=== PATIENT | male | born 1985 ===

== ENCOUNTER 2018-08-13 21:43 | Inpatient (IN) | payer MEDICAID, OTHER ==
[2018-08-13] MEDS ORDERED: Iohexol 240 (50 ml) PO ONE (22:57)
[2018-08-13] MEDS ORDERED: Sodium Chloride 0.9% 1,000 ML IV STA (22:57)
--- NOTE | 2018-08-13 23:10 | ED PDOC ---
HPI: Abdomen Time Seen by Provider: 08/13/18 22:45 Chief Complaint (Nursing): Abdominal Pain Chief Complaint (Provider): abdominal pain History Per: Patient, Drum Puller (cherelle #[id number]) History/Exam Limitations: no limitations Onset/Duration Of Symptoms: Days (2) Current Symptoms Are (Timing): Still Present Location Of Pain/Discomfort: Diffuse Associated Symptoms: Nausea, Vomiting Additional Complaint(s): 32 y/o male presents for evaluation of diffuse abdominal pain x 2 days. Associated nausea/vomiting. Denies fever, chest pain, shortness of breath, palpitations, changes in bowel movements, urinary symptoms. Last BM 23:00 last night PMD: none Past Medical History Reviewed: Historical Data, Nursing Documentation, Vital Signs Vital Signs: Last Vital Signs Temp 98.2 F 08/13/18 22:15 Pulse 101 H 08/13/18 22:15 Resp 16 08/13/18 22:15 BP 178/97 H 08/13/18 22:15 Pulse Ox 100 08/13/18 22:15 - Medical History PMH: No Chronic Diseases - Surgical History Surgical History: No Surg Hx - Family History Family History: States: Unknown Family Hx - Immunization History Hx Tetanus Toxoid Vaccination: No Hx Influenza Vaccination: No Hx Pneumococcal Vaccination: No - Home Medications Home Medications: Ambulatory Orders Medication Instructions Recorded No Known Home Med 08/14/18 - Allergies Allergies/Adverse Reactions: Allergies Allergy/AdvReac Type Severity Reaction Status Date / Time No Known Allergies Allergy Verified 08/13/18 22:15 Review of Systems ROS Statement: Except As Marked, All Systems Reviewed And Found Negative Gastrointestinal: Positive for: Nausea, Vomiting, Abdominal Pain Physical Exam - Reviewed Nursing Documentation Reviewed: Yes Vital Signs Reviewed: Yes - Physical Exam Appears: Positive for: Well, Non-toxic, No Acute Distress Head Exam: Positive for: ATRAUMATIC, NORMAL INSPECTION, NORMOCEPHALIC Skin: Positive for: Normal Color Eye Exam: Positive for: Normal appearance ENT: Positive for: Normal ENT Inspection Cardiovascular/Chest: Positive for: Regular Rate, Rhythm Respiratory: Positive for: Normal Breath Sounds Gastrointestinal/Abdominal: Positive for: Bowel Sounds (hypoactive), Soft, Tenderness (diffuse) Back: Positive for: Normal Inspection Extremity: Positive for: Normal ROM Neurological/Psych: Positive for: Awake, Alert, Oriented (x3) - Laboratory Results Result Diagrams: 08/14/18 06:55 08/13/18 23:20 - ECG O2 Sat by Pulse Oximetry: 100 - Radiology X-Ray: Viewed By Me X-Ray Interpretation: No Acute Disease - Progress ED Course And Treament: -cbc -cmp -lipase -CT abd/pelvis -IV NS bolus -IV zofran -IV pepcid Ultrasound of the right upper quadrant. Indication: Upper abdominal pain and vomiting. Technique: Real-time ultrasound images were obtained. Findings: The liver measures 17.6 cm with diffuse increased echogenicity suggestive of hepatic steatosis. Limited evaluation secondary to gaseous bowel distention. Unremarkable gallbladder measuring 2.3 mm in its wall thickness. No evidence of cholelithiasis or acute cholecystitis. Nonvisualization of the pancreas. Unremarkable common bile duct measuring 4.1 mm. Unremarkable right kidney measuring 10.2x5.7x5.6 cm. Minimal amount of free fluid is noted in the [place] pouch/perinephric fat. Impression: No evidence of cholelithiasis or acute cholecystitis. Hepatomegaly with hepatic steatosis EXAM: CT Abdomen and Pelvis with IV contrast CLINICAL HISTORY: Abdominal pain vomiting TECHNIQUE: Axial computed tomography images of the abdomen and pelvis with oral and intravenous contrast. 318.39 mGy-cm CONTRAST: With; [id number] 90ML COMPARISON: None provided. FINDINGS: LUNG BASES: The lung bases appear clear. No pleural effusions are seen. LIVER: Unremarkable. GALLBLADDER AND BILE DUCTS: The gallbladder appears within normal limits. No radioopaque gallstones are seen. No biliary ductal dilatation is evident. PANCREAS: Unremarkable. SPLEEN: Unremarkable. ADRENAL GLANDS: Unremarkable. KIDNEYS, URETERS, AND BLADDER: The kidneys appear within normal limits. There is no hydronephrosis or hydroureter. No urinary calculi are seen. STOMACH AND BOWEL: Markedly dilated loops of small bowel, measuring up to 3.5 cm with evidence of fecalization and transition point at the level of proximal ileum compatible with high grade small bowel obstruction. APPENDIX: No evidence of acute appendicitis on CT examination. PERITONEUM: No free fluid. No free air. LYMPH NODES: No lymphadenopathy is evident. REPRODUCTIVE: Unremarkable as visualized. VASCULATURE: No evidence of abdominal aortic aneurysm. BONES: No aggressive appearing osseous lesion. No acute osseous pathology evident. IMPRESSION: Evidence of high grade small bowel obstruction. Case discussed with Dr. Solis, Surgeon on-call, who will consult in am Case discussed with Dr. George, surgical garment inspector on-call regarding consult Case discussed with Dr. Issa, hospitalist on-call, for admission Disposition - Clinical Impression Clinical Impression: Hyperglycemia, Small bowel obstruction - Disposition Disposition Time: 04:30 Condition: FAIR
[2018-08-13] MEDS ORDERED: Iohexol 240 (50 ml) ONE (23:37)
[2018-08-13 23:38] LABS: BASO % 0.3 % (0.0-2.0); HEMOGLOBIN 15.7 g/dL (12.0-18.0); LYMPH # 0.7 K/uL (1.0-4.3); LYMPH % 5.7 % (20.0-40.0); MEAN CELL VOLUME 93.2 fl (80.0-94.0); MEAN CORPUSCULAR HEMOGLOBIN 32.1 pg (27.0-31.0); MEAN CORPUSCULAR HGB CONC 34.4 g/dL (33.0-37.0); MEAN PLATELET VOLUME 9.2 fl (7.2-11.7); MONO # 1.1 K/uL (0.0-0.8); MONO % 9.8 % (0.0-10.0); NEUT # 9.7 K/uL (1.8-7.0); NEUT % 84.2 % (50.0-75.0); NRBC % 0.1 % (0.0-0.0); PLATELET COUNT 141 K/uL (130-400); RBC 4.89 Mil/uL (4.40-5.90); RED CELL DISTRIBUTION WIDTH 13.1 % (11.5-14.5); WHITE BLOOD COUNT 11.6 K/uL (4.8-10.8)
[2018-08-13 23:48] LABS: ALB/GLOB RATIO 1.3 (1.0-2.1); ALT/SGPT 112 U/L (21-72); AST/SGOT 84 U/L (17-59); BLOOD UREA NITROGEN 10 mg/dl (9-20); GFR NON-AFRICAN AMERICAN > 60; LIPASE 208 U/L (23-300)
[2018-08-14 00:28] LABS: PLATELET ESTIMATE NORMAL (NORMAL)
[2018-08-14 00:29] LABS: BANDS 2 % (0-2); BASOPHIL 1 % (0-2); EOSINOPHIL 1 % (0-7); LYMPHOCYTE 4 % (20-50); MONOCYTE 11 % (0-10); NEUTROPHIL 81 % (42-75); TOTAL CELLS COUNTED 100
[2018-08-14 01:08] LABS: URINE BILIRUBIN NEGATIVE (NEGATIVE); URINE BLOOD NEGATIVE (NEGATIVE); URINE CLARITY CLEAR (Clear); URINE COLOR YELLOW (YELLOW); URINE GLUCOSE (UA) >=500 mg/dL (NEGATIVE); URINE LEUKOCYTE ESTERASE NEG Leu/uL (Negative); URINE PROTEIN 100 mg/dL (NEGATIVE); URINE UROBILINOGEN 0.2-1.0 mg/dL (0.2-1.0)
[2018-08-14 01:48] LABS: VENOUS BLOOD GAS BASE EXCESS -3.9 mmol/L (0.0-2.0); VENOUS BLOOD GAS PCO2 36 mmHg (40-60); VENOUS BLOOD GAS PO2 57 mm/Hg (30-55); VENOUS BLOOD PH 7.37 (7.32-7.43)
[2018-08-14] MEDS ORDERED: Sodium Chloride 0.9% 50 ML IV ONE (01:52)
[2018-08-14] MEDS ORDERED: Iohexol 300 100 ML IJ ONE (01:52)
[2018-08-14] MEDS ORDERED: Morphine 4 MG/ML VIAL IVP ONE (04:06)
--- NOTE | 2018-08-14 05:08 | CP.PCM.HP ---
<Alan Curtis - Last Filed: 08/14/18 05:01> History of Present Illness - History of Present Illness History of Present Illness: 32 y/o male with no significant PMH presented to the ED c/o diffuse abdominal pain since Sunday. He describes pain as sharp and constant 11/06. Patient states associated nausea and several episodes of nbnb vomiting x2 days. Patient reports last BM last night about 11pm and also states decrease in gasses pattern. Otherwise he denies fever, chills, chest pain, shortness of breath, palpitations, changes in bowel movements, urinary symptoms. PMD: none provided. PMH: denies PSH: denies FMH: non contributory No home meds NKDA, no other allergies SH: etoh socially on weekends, denies tobacco or ilicit drugs use Present on Admission - Present on Admission Any Indicators Present on Admission: No Review of Systems - Review of Systems All systems: reviewed and no additional remarkable complaints except (HPI) Past Patient History - Past Social History Smoking Status: Never Smoked - GASTROINTESTINAL Hx Gastrointestinal Disorders: Yes Hx Gastritis: Yes - PSYCHIATRIC Hx Substance Use: No - SURGICAL HISTORY Hx Surgeries: No Meds Allergies/Adverse Reactions: Allergies Allergy/AdvReac Type Severity Reaction Status Date / Time No Known Allergies Allergy Verified 08/13/18 22:15 Physical Exam - Constitutional Appears: No Acute Distress - Head Exam Head Exam: NORMAL INSPECTION - Eye Exam Eye Exam: EOMI, PERRL - ENT Exam ENT Exam: Mucous Membranes Moist - Respiratory Exam Respiratory Exam: Clear to Auscultation Bilateral, NORMAL BREATHING PATTERN. absent: Rales, Wheezes - Cardiovascular Exam Cardiovascular Exam: REGULAR RHYTHM, +S1, +S2. absent: Tachycardia, Systolic Murmur - GI/Abdominal Exam GI & Abdominal Exam: Distended, Hypoactive Bowel Sounds, Tenderness (difusse over lower and upper quadrants). absent: Guarding - Extremities Exam Extremities exam: Negative for: calf tenderness, pedal edema - Neurological Exam Neurological exam: Alert, CN II-XII Intact, Oriented x3 - Skin Skin Exam: Dry, Normal Color, Warm Results - Vital Signs Recent Vital Signs: Last Vital Signs Temp 99.0 F 08/14/18 04:13 Pulse 91 H 08/14/18 04:13 Resp 18 08/14/18 04:13 BP 144/98 H 08/14/18 04:13 Pulse Ox 100 08/14/18 04:56 - Labs Result Diagrams: 08/13/18 23:20 08/13/18 23:20 Labs: Laboratory Results - last 24 hr 08/13/18 08/13/18 08/14/18 23:20 23:20 00:10 WBC 11.6 H RBC 4.89 Hgb 15.7 Hct 45.6 MCV 93.2 MCH 32.1 H MCHC 34.4 RDW 13.1 Plt Count 141 MPV 9.2 Neut % (Auto) 84.2 H Lymph % (Auto) 5.7 L [place] % (Auto) 9.8 Eos % (Auto) 0.0 Baso % (Auto) 0.3 Neut # (Auto) 9.7 H Lymph # (Auto) 0.7 L [place] # (Auto) 1.1 H Eos # (Auto) 0.0 Baso # (Auto) 0.0 Neutrophils % (Manual) 81 H Band Neutrophils % 2 Lymphocytes % (Manual) 4 L Monocytes % (Manual) 11 H Eosinophils % (Manual) 1 Basophils % (Manual) 1 Platelet Estimate Normal RBC Morphology Normal pO2 VBG pH VBG pCO2 VBG HCO3 VBG Total CO2 VBG O2 Sat (Calc) VBG Base Excess VBG Potassium Glucose Lactate FiO2 Sodium 134 Potassium 4.1 Chloride 94 L Carbon Dioxide 23 Anion Gap 21 H BUN 10 Creatinine 0.5 L Est GFR ( Amer) > 60 Est GFR (Non-Af Amer) > 60 Random Glucose 274 H Calcium 10.0 Total Bilirubin 2.2 H AST 84 H ALT 112 H Alkaline Phosphatase 162 H Total Protein 8.9 H Albumin 5.0 Globulin 3.9 Albumin/Globulin Ratio 1.3 Lipase 208 Venous Blood Potassium Urine Color Yellow Urine Clarity Clear Urine pH 6.0 Ur Specific [place] 1.039 H Urine Protein 100 Urine Glucose (UA) >=500 Urine Ketones 80 Urine Blood Negative Urine Nitrate Negative Urine Bilirubin Negative Urine Urobilinogen 0.2-1.0 Ur Leukocyte Esterase Neg Urine RBC (Auto) 1 Urine Microscopic WBC < 1 08/14/18 01:45 WBC RBC Hgb Hct MCV MCH MCHC RDW Plt Count MPV Neut % (Auto) Lymph % (Auto) [place] % (Auto) Eos % (Auto) Baso % (Auto) Neut # (Auto) Lymph # (Auto) [place] # (Auto) Eos # (Auto) Baso # (Auto) Neutrophils % (Manual) Band Neutrophils % Lymphocytes % (Manual) Monocytes % (Manual) Eosinophils % (Manual) Basophils % (Manual) Platelet Estimate RBC Morphology pO2 57 H VBG pH 7.37 VBG pCO2 36 L VBG HCO3 21.6 VBG Total CO2 21.9 L VBG O2 Sat (Calc) 93.0 H VBG Base Excess -3.9 L VBG Potassium 4.1 Glucose 260 H Lactate 1.2 FiO2 21.0 Sodium 131.0 L Potassium Chloride 95.0 L Carbon Dioxide Anion Gap BUN Creatinine Est GFR ( Amer) Est GFR (Non-Af Amer) Random Glucose Calcium Total Bilirubin AST ALT Alkaline Phosphatase Total Protein Albumin Globulin Albumin/Globulin Ratio Lipase Venous Blood Potassium 4.1 Urine Color Urine Clarity Urine pH Ur Specific [place] Urine Protein Urine Glucose (UA) Urine Ketones Urine Blood Urine Nitrate Urine Bilirubin Urine Urobilinogen Ur Leukocyte Esterase Urine RBC (Auto) Urine Microscopic WBC Assessment & Plan - Assessment and Plan (Free Text) Assessment: 32 y/o male with no significant PMH admitted for evaluation and management of SBO. Plan: Small bowel obstruction - Abd CT: Evidence of high grade small bowel obstruction. - admit to med/surg - mild leukocytocis 11.6, afebrile - NPO - IVF - pain management - General Surgery consulted, recs appreciated - labs in am Hyperglycemia - family h/o DM - asymptomatic Hepatic steatosis Transaminitis Hyperbilirubinemia - RUQ US: No evidence of cholelithiasis or acute cholecystitis. Hepatomegaly with hepatic steatosis - AST/ALT: 84/112 - TB: 2.2 - f/u labs DVT ppx - SCD for now, pending Surgery eval. Case seen and examined with Dr Issa. <Angel Issa - Last Filed: 08/14/18 05:57> Results - Vital Signs Recent Vital Signs: Last Vital Signs Temp 99.0 F 08/14/18 04:13 Pulse 89 08/14/18 05:41 Resp 18 08/14/18 05:41 BP 147/86 08/14/18 05:41 Pulse Ox 99 08/14/18 05:41 - Labs Result Diagrams: 08/13/18 23:20 08/13/18 23:20 Labs: Laboratory Results - last 24 hr 08/13/18 08/13/18 08/14/18 23:20 23:20 00:10 WBC 11.6 H RBC 4.89 Hgb 15.7 Hct 45.6 MCV 93.2 MCH 32.1 H MCHC 34.4 RDW 13.1 Plt Count 141 MPV 9.2 Neut % (Auto) 84.2 H Lymph % (Auto) 5.7 L [place] % (Auto) 9.8 Eos % (Auto) 0.0 Baso % (Auto) 0.3 Neut # (Auto) 9.7 H Lymph # (Auto) 0.7 L [place] # (Auto) 1.1 H Eos # (Auto) 0.0 Baso # (Auto) 0.0 Neutrophils % (Manual) 81 H Band Neutrophils % 2 Lymphocytes % (Manual) 4 L Monocytes % (Manual) 11 H Eosinophils % (Manual) 1 Basophils % (Manual) 1 Platelet Estimate Normal RBC Morphology Normal PT INR APTT pO2 VBG pH VBG pCO2 VBG HCO3 VBG Total CO2 VBG O2 Sat (Calc) VBG Base Excess VBG Potassium Glucose Lactate FiO2 Sodium 134 Potassium 4.1 Chloride 94 L Carbon Dioxide 23 Anion Gap 21 H BUN 10 Creatinine 0.5 L Est GFR ( Amer) > 60 Est GFR (Non-Af Amer) > 60 Random Glucose 274 H Calcium 10.0 Total Bilirubin 2.2 H AST 84 H ALT 112 H Alkaline Phosphatase 162 H Total Protein 8.9 H Albumin 5.0 Globulin 3.9 Albumin/Globulin Ratio 1.3 Lipase 208 Venous Blood Potassium Urine Color Yellow Urine Clarity Clear Urine pH 6.0 Ur Specific [place] 1.039 H Urine Protein 100 Urine Glucose (UA) >=500 Urine Ketones 80 Urine Blood Negative Urine Nitrate Negative Urine Bilirubin Negative Urine Urobilinogen 0.2-1.0 Ur Leukocyte Esterase Neg Urine RBC (Auto) 1 Urine Microscopic WBC < 1 08/14/18 08/14/18 01:45 04:50 WBC RBC Hgb Hct MCV MCH MCHC RDW Plt Count MPV Neut % (Auto) Lymph % (Auto) [place] % (Auto) Eos % (Auto) Baso % (Auto) Neut # (Auto) Lymph # (Auto) [place] # (Auto) Eos # (Auto) Baso # (Auto) Neutrophils % (Manual) Band Neutrophils % Lymphocytes % (Manual) Monocytes % (Manual) Eosinophils % (Manual) Basophils % (Manual) Platelet Estimate RBC Morphology PT 12.1 INR 1.1 APTT 34.1 pO2 57 H VBG pH 7.37 VBG pCO2 36 L VBG HCO3 21.6 VBG Total CO2 21.9 L VBG O2 Sat (Calc) 93.0 H VBG Base Excess -3.9 L VBG Potassium 4.1 Glucose 260 H Lactate 1.2 FiO2 21.0 Sodium 131.0 L Potassium Chloride 95.0 L Carbon Dioxide Anion Gap BUN Creatinine Est GFR ( Amer) Est GFR (Non-Af Amer) Random Glucose Calcium Total Bilirubin AST ALT Alkaline Phosphatase Total Protein Albumin Globulin Albumin/Globulin Ratio Lipase Venous Blood Potassium 4.1 Urine Color Urine Clarity Urine pH Ur Specific [place] Urine Protein Urine Glucose (UA) Urine Ketones Urine Blood Urine Nitrate Urine Bilirubin Urine Urobilinogen Ur Leukocyte Esterase Urine RBC (Auto) Urine Microscopic WBC Attending/Attestation - Attestation I have personally seen and examined this patient.: Yes I have fully participated in the care of the patient.: Yes I have reviewed all pertinent clinical information: Yes Notes (Text): 08/14/18 05:50 I saw, examined and discussed this patient with Dr Curtis. I agree withthe assessment and plan outlined. This is a 32 years old male with no significant past medical hx who comes with 2 days of generalized abdominal pain with mild rebound tenderness, and vomits. CT abdomen / Pelvis showed SBO. We will consult with Surgery NPO Pain management HbA1c for Diabetes Mellitus Follow Liver enzymes for Transaminitis Angel Issa MD 08/14/18 05:56
[2018-08-14] MEDS ORDERED: Morphine 4 MG/ML VIAL ONE (05:13)
[2018-08-14] MEDS: Lactated Ringer's 1,000 ML IV SCH ×3 (05:18→23:47)
[2018-08-14 05:23] LABS: INR 1.1; PROTHROMBIN TIME 12.1 Seconds (9.8-13.1)
[2018-08-14 05:26] LABS: PARTIAL THROMBOPLASTIN TIME 34.1 Seconds (25.6-37.1)
--- NOTE | 2018-08-14 06:22 | CP.PCM.CON ---
<Luma George - Last Filed: 08/14/18 06:19> History of Present Illness - History of Present Illness History of Present Illness: General Surgery - Dr Solis 32 yo M w no PMH or PSH who presents to ED with diffuse abdominal pain, nausea and vomiting x 3 days. Pt states the symptoms began on Sunday. He describes the pain as diffusely throughout the abdomen and slightly towards the umbilicus, non-radiating, 7/10 and gradually worsening since Sunday. HE had associated nausea and has vomitted several times daily since this began. He states his last BM was yesterday night and was normal but he denies any flatus since this began. He denies any Fever/Chills/Diarrhea/Dysuria/Hematuria. PMH: denies PSH: denies No meds NKDA Social: ETOH socially on weekends, No smoking, No drugs Review of Systems - Review of Systems All systems: reviewed and no additional remarkable complaints except (as per HPI) Past Patient History - Past Social History Smoking Status: Never Smoked - GASTROINTESTINAL Hx Gastrointestinal Disorders: Yes Hx Gastritis: Yes - PSYCHIATRIC Hx Substance Use: No - SURGICAL HISTORY Hx Surgeries: No Meds Allergies/Adverse Reactions: Allergies Allergy/AdvReac Type Severity Reaction Status Date / Time No Known Allergies Allergy Verified 08/13/18 22:15 - Medications Medications: Current Medications Lactated Ringer's (Lactated Ringer's) 1,000 mls @ 125 mls/hr IV .Q8H DONNA Last Admin: 08/14/18 05:18 Dose: 125 mls/hr Morphine Sulfate (Morphine) 2 mg IVP Q4 PRN PRN Reason: Pain, severe (8-10) Ondansetron HCl (Zofran Inj) 4 mg IVP Q4 PRN PRN Reason: Nausea/Vomiting Physical Exam - Constitutional Appears: No Acute Distress - Head Exam Head Exam: ATRAUMATIC, NORMAL INSPECTION, NORMOCEPHALIC - Eye Exam Eye Exam: Normal appearance - Respiratory Exam Respiratory Exam: NORMAL BREATHING PATTERN. absent: Respiratory Distress - Cardiovascular Exam Cardiovascular Exam: REGULAR RHYTHM - GI/Abdominal Exam GI & Abdominal Exam: Distended, Guarding, Rebound, Soft, Tenderness - Neurological Exam Neurological exam: Alert, Oriented x3 - Psychiatric Exam Psychiatric exam: Normal Affect, Normal Mood - Skin Skin Exam: Dry, Intact Results - Vital Signs Recent Vital Signs: Last Vital Signs Temp 98.5 F 08/14/18 05:50 Pulse 89 08/14/18 05:41 Resp 18 08/14/18 05:41 BP 147/86 08/14/18 05:41 Pulse Ox 99 08/14/18 05:41 - Labs Result Diagrams: 08/13/18 23:20 08/13/18 23:20 Labs: Laboratory Results - last 24 hr 08/13/18 08/13/18 08/14/18 23:20 23:20 00:10 WBC 11.6 H RBC 4.89 Hgb 15.7 Hct 45.6 MCV 93.2 MCH 32.1 H MCHC 34.4 RDW 13.1 Plt Count 141 MPV 9.2 Neut % (Auto) 84.2 H Lymph % (Auto) 5.7 L [place] % (Auto) 9.8 Eos % (Auto) 0.0 Baso % (Auto) 0.3 Neut # (Auto) 9.7 H Lymph # (Auto) 0.7 L [place] # (Auto) 1.1 H Eos # (Auto) 0.0 Baso # (Auto) 0.0 Neutrophils % (Manual) 81 H Band Neutrophils % 2 Lymphocytes % (Manual) 4 L Monocytes % (Manual) 11 H Eosinophils % (Manual) 1 Basophils % (Manual) 1 Platelet Estimate Normal RBC Morphology Normal PT INR APTT pO2 VBG pH VBG pCO2 VBG HCO3 VBG Total CO2 VBG O2 Sat (Calc) VBG Base Excess VBG Potassium Glucose Lactate FiO2 Sodium 134 Potassium 4.1 Chloride 94 L Carbon Dioxide 23 Anion Gap 21 H BUN 10 Creatinine 0.5 L Est GFR ( Amer) > 60 Est GFR (Non-Af Amer) > 60 Random Glucose 274 H Calcium 10.0 Total Bilirubin 2.2 H AST 84 H ALT 112 H Alkaline Phosphatase 162 H Total Protein 8.9 H Albumin 5.0 Globulin 3.9 Albumin/Globulin Ratio 1.3 Lipase 208 Venous Blood Potassium Urine Color Yellow Urine Clarity Clear Urine pH 6.0 Ur Specific [place] 1.039 H Urine Protein 100 Urine Glucose (UA) >=500 Urine Ketones 80 Urine Blood Negative Urine Nitrate Negative Urine Bilirubin Negative Urine Urobilinogen 0.2-1.0 Ur Leukocyte Esterase Neg Urine RBC (Auto) 1 Urine Microscopic WBC < 1 08/14/18 08/14/18 01:45 04:50 WBC RBC Hgb Hct MCV MCH MCHC RDW Plt Count MPV Neut % (Auto) Lymph % (Auto) [place] % (Auto) Eos % (Auto) Baso % (Auto) Neut # (Auto) Lymph # (Auto) [place] # (Auto) Eos # (Auto) Baso # (Auto) Neutrophils % (Manual) Band Neutrophils % Lymphocytes % (Manual) Monocytes % (Manual) Eosinophils % (Manual) Basophils % (Manual) Platelet Estimate RBC Morphology PT 12.1 INR 1.1 APTT 34.1 pO2 57 H VBG pH 7.37 VBG pCO2 36 L VBG HCO3 21.6 VBG Total CO2 21.9 L VBG O2 Sat (Calc) 93.0 H VBG Base Excess -3.9 L VBG Potassium 4.1 Glucose 260 H Lactate 1.2 FiO2 21.0 Sodium 131.0 L Potassium Chloride 95.0 L Carbon Dioxide Anion Gap BUN Creatinine Est GFR ( Amer) Est GFR (Non-Af Amer) Random Glucose Calcium Total Bilirubin AST ALT Alkaline Phosphatase Total Protein Albumin Globulin Albumin/Globulin Ratio Lipase Venous Blood Potassium 4.1 Urine Color Urine Clarity Urine pH Ur Specific [place] Urine Protein Urine Glucose (UA) Urine Ketones Urine Blood Urine Nitrate Urine Bilirubin Urine Urobilinogen Ur Leukocyte Esterase Urine RBC (Auto) Urine Microscopic WBC Assessment & Plan - Assessment and Plan (Free Text) Assessment: 32M w/ no PMH/PSH presenting with high-grade SBO -NPO -IVF resuscitation -Anti-emetics and pain control prn -NGT attempted, will re-attempt if vomitting continues -Further reccomendations as per Dr. Solis DW Dr Solis <Rachid Rogel - Last Filed: 08/14/18 10:46> History of Present Illness - History of Present Illness History of Present Illness: Patient was seen and examined at the bedside. Agree with resident's note above. Denies any flatus or bowel movements. Reports some mild abdominal pain. Meds - Medications Medications: Current Medications Lactated Ringer's (Lactated Ringer's) 1,000 mls @ 125 mls/hr IV .Q8H [facility] Last Admin: 08/14/18 05:18 Dose: 125 mls/hr Morphine Sulfate (Morphine) 2 mg IVP Q4 PRN PRN Reason: Pain, severe (8-10) Ondansetron HCl (Zofran Inj) 4 mg IVP Q4 PRN PRN Reason: Nausea/Vomiting Physical Exam - GI/Abdominal Exam Additional comments: soft, mildly tender to palpation, ND, BS+, no rebound, no guarding Results - Vital Signs Recent Vital Signs: Last Vital Signs Temp 97.8 F 08/14/18 08:25 Pulse 93 H 08/14/18 08:25 Resp 20 08/14/18 08:25 BP 168/97 H 08/14/18 08:25 Pulse Ox 96 08/14/18 08:25 - Labs Result Diagrams: 08/14/18 06:55 08/13/18 23:20 Labs: Laboratory Results - last 24 hr 08/13/18 08/13/18 08/14/18 23:20 23:20 00:10 WBC 11.6 H RBC 4.89 Hgb 15.7 Hct 45.6 MCV 93.2 MCH 32.1 H MCHC 34.4 RDW 13.1 Plt Count 141 MPV 9.2 Neut % (Auto) 84.2 H Lymph % (Auto) 5.7 L [place] % (Auto) 9.8 Eos % (Auto) 0.0 Baso % (Auto) 0.3 Neut # (Auto) 9.7 H Lymph # (Auto) 0.7 L [place] # (Auto) 1.1 H Eos # (Auto) 0.0 Baso # (Auto) 0.0 Neutrophils % (Manual) 81 H Band Neutrophils % 2 Lymphocytes % (Manual) 4 L Monocytes % (Manual) 11 H Eosinophils % (Manual) 1 Basophils % (Manual) 1 Platelet Estimate Normal RBC Morphology Normal PT INR APTT pO2 VBG pH VBG pCO2 VBG HCO3 VBG Total CO2 VBG O2 Sat (Calc) VBG Base Excess VBG Potassium Glucose Lactate FiO2 Sodium 134 Potassium 4.1 Chloride 94 L Carbon Dioxide 23 Anion Gap 21 H BUN 10 Creatinine 0.5 L Est GFR ( Amer) > 60 Est GFR (Non-Af Amer) > 60 Random Glucose 274 H Calcium 10.0 Total Bilirubin 2.2 H AST 84 H ALT 112 H Alkaline Phosphatase 162 H Total Protein 8.9 H Albumin 5.0 Globulin 3.9 Albumin/Globulin Ratio 1.3 Lipase 208 Venous Blood Potassium Urine Color Yellow Urine Clarity Clear Urine pH 6.0 Ur Specific [place] 1.039 H Urine Protein 100 Urine Glucose (UA) >=500 Urine Ketones 80 Urine Blood Negative Urine Nitrate Negative Urine Bilirubin Negative Urine Urobilinogen 0.2-1.0 Ur Leukocyte Esterase Neg Urine RBC (Auto) 1 Urine Microscopic WBC < 1 08/14/18 08/14/18 08/14/18 01:45 04:50 06:55 WBC 9.5 RBC 4.68 Hgb 15.2 Hct 44.3 MCV 94.7 H MCH 32.4 H MCHC 34.3 RDW 13.1 Plt Count 140 MPV 9.2 Neut % (Auto) 79.2 H Lymph % (Auto) 9.3 L [place] % (Auto) 10.9 H Eos % (Auto) 0.1 Baso % (Auto) 0.5 Neut # (Auto) 7.6 H Lymph # (Auto) 0.9 L [place] # (Auto) 1.0 H Eos # (Auto) 0.0 Baso # (Auto) 0.0 Neutrophils % (Manual) Band Neutrophils % Lymphocytes % (Manual) Monocytes % (Manual) Eosinophils % (Manual) Basophils % (Manual) Platelet Estimate RBC Morphology PT 12.1 INR 1.1 APTT 34.1 pO2 57 H VBG pH 7.37 VBG pCO2 36 L VBG HCO3 21.6 VBG Total CO2 21.9 L VBG O2 Sat (Calc) 93.0 H VBG Base Excess -3.9 L VBG Potassium 4.1 Glucose 260 H Lactate 1.2 FiO2 21.0 Sodium 131.0 L Potassium Chloride 95.0 L Carbon Dioxide Anion Gap BUN Creatinine Est GFR ( Amer) Est GFR (Non-Af Amer) Random Glucose Calcium Total Bilirubin AST ALT Alkaline Phosphatase Total Protein Albumin Globulin Albumin/Globulin Ratio Lipase Venous Blood Potassium 4.1 Urine Color Urine Clarity Urine pH Ur Specific [place] Urine Protein Urine Glucose (UA) Urine Ketones Urine Blood Urine Nitrate Urine Bilirubin Urine Urobilinogen Ur Leukocyte Esterase Urine RBC (Auto) Urine Microscopic WBC - Imaging and Cardiology CT scan - abdomen Status: Image reviewed by me, Report reviewed by me Assessment & Plan - Assessment and Plan (Free Text) Plan: - NPO - IV fluids - Pain control - To OR for Laparoscopy, possible Exploratory Laparotomy
[2018-08-14 07:06] LABS: BASO % 0.5 % (0.0-2.0); EOS % 0.1 % (0.0-4.0); HEMOGLOBIN 15.2 g/dL (12.0-18.0); LYMPH # 0.9 K/uL (1.0-4.3); LYMPH % 9.3 % (20.0-40.0); MEAN CELL VOLUME 94.7 fl (80.0-94.0); MEAN CORPUSCULAR HEMOGLOBIN 32.4 pg (27.0-31.0); MEAN CORPUSCULAR HGB CONC 34.3 g/dL (33.0-37.0); MEAN PLATELET VOLUME 9.2 fl (7.2-11.7); MONO % 10.9 % (0.0-10.0); NEUT # 7.6 K/uL (1.8-7.0); NEUT % 79.2 % (50.0-75.0); RBC 4.68 Mil/uL (4.40-5.90); RED CELL DISTRIBUTION WIDTH 13.1 % (11.5-14.5); WHITE BLOOD COUNT 9.5 K/uL (4.8-10.8)
--- NOTE | 2018-08-14 07:29 | CP.PCM.PN ---
Objective - Vital Signs/Intake and Output Vital Signs (last 24 hours): Temp Pulse Resp BP Pulse Ox 97.8 F 89 20 159/91 H 95 08/14/18 06:44 08/14/18 06:44 08/14/18 06:44 08/14/18 06:44 08/14/18 06:44 - Medications Medications: Current Medications Lactated Ringer's (Lactated Ringer's) 1,000 mls @ 125 mls/hr IV .Q8H DONNA Last Admin: 08/14/18 05:18 Dose: 125 mls/hr Morphine Sulfate (Morphine) 2 mg IVP Q4 PRN PRN Reason: Pain, severe (8-10) Ondansetron HCl (Zofran Inj) 4 mg IVP Q4 PRN PRN Reason: Nausea/Vomiting - Labs Labs: 08/14/18 06:55 08/13/18 23:20 PT 12.1 Seconds (9.8-13.1) 08/14/18 04:50 INR 1.1 08/14/18 04:50 APTT 34.1 Seconds (25.6-37.1) 08/14/18 04:50
[2018-08-14] MEDS ORDERED: Chlorhexidine Gluconate 1 APPL/PKT TP ONE (07:57)
--- NOTE | 2018-08-14 08:10 | RAD ---
Date of service: 08/14/2018 PROCEDURE: CHEST RADIOGRAPH, 1 VIEW HISTORY: admit COMPARISON: None available. FINDINGS: LUNGS: Consolidation. Probable tiny granulomas throughout both lungs. PLEURA: No pneumothorax or pleural fluid seen. CARDIOVASCULAR: No aortic atherosclerotic calcification present. Normal. OSSEOUS STRUCTURES: No significant abnormalities. VISUALIZED UPPER ABDOMEN: Multiple small bowel loops borderline distended multiple air-fluid [id number] obstruction is 1 consideration. Please note the subsequent CT abdomen and pelvic report. OTHER FINDINGS: None IMPRESSION: Multiple small bowel air-fluid level loops epigastric area with the borderline prominent calibers-a small bowel obstruction is a consideration. Please note the subsequent preliminary CT abdomen and pelvic report.
--- NOTE | 2018-08-14 10:29 | US ---
Date of service: 08/14/2018 HISTORY: abd pain, vomiting COMPARISON: None. TECHNIQUE: Sonographic evaluation of the right upper quadrant of the abdomen. FINDINGS: LIVER: Measures 17.6 cm in length. Mild diffuse increased echogenicity of the liver parenchyma. No mass. No intrahepatic bile duct dilatation. GALLBLADDER: Gallbladder slightly small but otherwise unremarkable. No gallstones seen. No gallbladder wall thickening or pericholecystic fluid seen. No positive ultrasound Neumann sign. COMMON BILE DUCT: Measures 4.1 mm. No stones. No dilatation. PANCREAS: Unremarkable as visualized. No mass. No ductal dilatation. RIGHT KIDNEY: Measures 12.2 x 5.7 x 5.6 cm in length. Normal echogenicity. No calculus, mass, or hydronephrosis. Trace amount of peritoneal fluid is seen in Morison's pouch. And bordering the right hepatic lobe. AORTA: No aneurysmal dilatation. IVC: Unremarkable. OTHER FINDINGS: None . IMPRESSION: No gallbladder or pancreatic pathology noted. Hepatomegaly and hepatic steatosis. Trace amount of ascitic fluid in Resendiz's pouch and bordering the liver. Concordant results (preliminary interpretation) provided by [employer].
[2018-08-14] MEDS ORDERED: Influenza Vaccine 60 mcg/0.5 mL SYR (4YR UP) IM ONE (10:30)
--- NOTE | 2018-08-14 10:40 | CT ---
PROCEDURE: CT Abdomen and Pelvis with oral and IV contrast. HISTORY: abd pain, vomiting COMPARISON: Right upper quadrant ultrasound performed 08/14/18 TECHNIQUE: Contiguous axial images of the abdomen and pelvis. Oral and IV contrast was administered. Coronal and Sagittal reformats generated and reviewed. Contrast dose: 90 mL Omnipaque 300 IV Radiation dose: Total exam DLP = 318.39 mGy-cm. This CT exam was performed using one or more of the following dose reduction techniques: Automated exposure control, adjustment of the mA and/or kV according to patient size, and/or use of iterative reconstruction technique. FINDINGS: LOWER THORAX: Bibasilar atelectasis. No visible pleural effusion or pneumothorax. LIVER: Trace perihepatic fluid. Otherwise unremarkable. GALLBLADDER AND BILE DUCTS: Unremarkable. PANCREAS: Unremarkable. SPLEEN: Unremarkable. ADRENALS: Unremarkable. KIDNEYS AND URETERS: The kidneys enhance symmetrically. No hydronephrosis or obstructing renal calculus. BLADDER: The urinary bladder appears unremarkable. REPRODUCTIVE: Unremarkable. APPENDIX: The appendix appears within normal limits of caliber. No secondary signs of acute appendicitis. BOWEL: The stomach is nondistended. Dilated stairstep appearance of small bowel loops measuring up to 3.4 cm in diameter with fecalization of luminal contents consistent with obstruction. Evidence of decompressed distal ileum with exact point of transition uncertain. Diverticulosis. PERITONEUM: No definite free air. LYMPH NODES: No bulky lymphadenopathy identified. VASCULATURE: No aortic aneurysm. No atherosclerotic calcification or mural plaque present. BONES: No acute osseous abnormality is detected. OTHER FINDINGS: None. IMPRESSION: Dilated small bowel loops with evidence of fecalization and decompressed distal ileum; findings appear consistent with small bowel obstruction. Diverticulosis. Trace perihepatic fluid. Preliminary impression was provided by [employer]
[2018-08-14] MEDS ORDERED: Influenza Vaccine (5 YR UP)/PF 60 MCG/0.5 ML SYR IM ONE (11:00)
[2018-08-14] MEDS ORDERED: Rocuronium 10 mg/ml (5 ml) ONE (11:43)
[2018-08-14] MEDS ORDERED: Propofol 10 mg/ml Inj (20 ML) ONE (11:43)
[2018-08-14] MEDS ORDERED: Midazolam 2 MG/2 ML VIAL ONE (11:43)
[2018-08-14] MEDS ORDERED: Bupivacaine 0.5% Inj(30mL) ONE (11:44)
[2018-08-14] MEDS ORDERED: Succinylcholine Chloride 20 mg/ml Syr (5 ml) IV ONE (11:48)
[2018-08-14] MEDS ORDERED: Bupivacaine HCl 0.5% PF (30 ml) Inj ONE (13:20)
[2018-08-14] MEDS ORDERED: Bupivacaine 0.25%-Epinephrine 1:200,000 (30 ml) Inj ONE (13:22)
[2018-08-14] MEDS ORDERED: Neostigmine 1:1000 (1 mg/ml) Inj ONE (13:28)
[2018-08-14] MEDS ORDERED: Naloxone 0.4 mg/ml Inj (Adult) ONE (14:09)
[2018-08-14] MEDS ORDERED: Lactated Ringer's 1,000 ML IV ONE ×2 (14:10→14:43)
[2018-08-14] MEDS ORDERED: Lactated Ringer's 1,000 ML IV SCH (14:15)
--- NOTE | 2018-08-14 14:16 | PCM.ANESB5 ---
Transverse Abdominis Block - Transverse Abdominis Plane Date of Procedure: 08/14/18 Anesthesiologist: Isaias Lou Pre-Procedure Diagnosis: Bowel obstruction Post-Procedure Diagnosis: Dilated bowel Procedure Performed: Transverse Abdominis Plane Nerve Block Left, Transverse Abdominis Plane Nerve Block Right - Procedure Transverse Abdominis Plane Nerve Block: The procedure was explained to the patient that it is for post-operative pain management and would be performed after surgery. Consent was obtained prior to surgery after a thorough discussion with the patient regarding the benefits and possible complications of transverse abdominis plane block. After the surgery had concluded and before the patient emerged from general anesthesia, time-out was held with the circulating nurse to re-confirm the appropriate block. With the patient in supine position, the ultrasound probe was placed transverse to the abdominal wall at the mid-axillary line above the iliac crest of the appropriate side. The skin, subcutaneous tissue, fat, external oblique muscle, internal oblique muscle, and the transverse abdominis muscle were identified. The general area of the block site was then prepped with Chloraprep three times. At this point, a # 21-gauge Stimuplex 4-inch needle was inserted posterior to and in plane with the ultrasound probe and directed anteriorly. Needle was adva nced under direct ultrasound visualization until it reached the plane between the internal oblique and transverse abdominis muscles. After appropriate placement, 2mL of local anesthetic solution was injected. When the transverse abdominis plane was observed expanding in an ellipsoid way, the rest of the solution was slowly injected. A total of _30__ mL of _0.25__ % bupivacaine with 1:[id number] epinephrine was used for this block. The needle was then removed and sterile dressing was applied. Similarly, the same procedure was performed on the other side using the same medications. The patient had stable vital signs throughout and had no untoward complications after emergence from general anesthesia in the recovery room.
--- NOTE | 2018-08-14 14:23 | PCM.SURG1 ---
Surgeon's Initial Post Op Note - Surgeon's Notes Surgeon: Dr. Rogel, Dr. Somers Manager Sql: Dr. Pittman Type of Anesthesia: General Endo Pre-Operative Diagnosis: small bowel obtruction Operative Findings: see operative report Post-Operative Diagnosis: small bowel obstruction Operation Performed: diagnostic laparoscopy, exploratory laparotomy, repair of serosal injury, repair of enterotomy Specimen/Specimens Removed: none Estimated Blood Loss: EBL {In ML}: 25 Blood Products Given: N/A Drains Used: No Drains Post-Op Condition: Good Date of Surgery/Procedure: 08/14/18 Time of Surgery/Procedure: 13:00
[2018-08-14] MEDS: HYDROmorphone 0.5 mg/0.5 ml ISec IVP PRN ×4 (15:10→15:25)
[2018-08-14] MEDS ORDERED: Metoprolol 1 mg/ml Inj IVP ONE ×2 (16:35→16:45)
[2018-08-14] MEDS ORDERED: ceFAZolin 2 GM in Sodium Chloride 0.9% 100 ML IVPB SCH (17:00)
[2018-08-14] MEDS ORDERED: Sodium Chloride 0.9% 500 ML IV ONE (17:07)
[2018-08-14] MEDS: Insulin Lispro (humaLOG) 100 Units/ml Inj SC SCH ×2 (17:44→22:45)
[2018-08-14] MEDS ORDERED: HYDROmorphone 0.5 mg/0.5 ml ISec IVP PRN (20:19)
[2018-08-14] MEDS: ceFAZolin 2 GM in Sodium Chloride 0.9% 100 ML IVPB SCH (20:27)
[2018-08-15] MEDS: ceFAZolin 2 GM in Sodium Chloride 0.9% 100 ML IVPB SCH (04:08)
--- NOTE | 2018-08-15 04:11 | OP ---
PROCEDURE DATE: 08/14/2018 PREOPERATIVE DIAGNOSIS: High-grade small bowel obstruction. POSTOPERATIVE DIAGNOSIS: Small bowel obstruction. PROCEDURE: Diagnostic laparotomy converted to exploratory laparotomy, repair of enterotomy and serosal tear. SURGEON: Candido Somers MD. AUTOMATIC WINDER OPERATOR: Rachid Rogel MD; Resident, Belkis Pittman. TYPE OF ANESTHESIA: General. FINDINGS: The patient had hyperemic distended small bowel from distal jejunum to distal terminal ileum. The patient had a collapsed distal ileum, small bowel was hyperemic, no identifiable adhesive band. The patient had fecalized small bowel. Small bowel ran from the ligament of Treitz to the terminal ileum and no gross abnormality and no adhesive bands found. ESTIMATED BLOOD LOSS: 25 mL. COMPLICATIONS: None. SPECIMEN: None. CONDITION: Stable. BRIEF HISTORY OF PATIENT: This is a 32-year-old male with no previous surgical history, presented to the emergency room with 3-day history of worsening diffuse abdominal pain. The patient's last bowel movement was about two days ago and no further flatus for about one day. The patient had a CT scan, which was read as possible high-grade obstruction. The patient had distended small bowel with collapsed loops at the distal ileum. On exam, the patient was tender to the right upper quadrant with some guarding. Given the patient's clinical findings, an extensive discussion was had with the patient regarding the need for a diagnostic laparoscopy given his no previous surgical history. The patient was informed of the possible need for an exploratory laparotomy possible small bowel resection. The patient was also informed that diagnostic laparoscopy may not show any significant findings. The patient agreed and the patient was also explained the risks and benefits of the procedure not limited to bleeding, infection. The patient agreed and surgical consent was obtained. DESCRIPTION OF PROCEDURE: On the date of procedure, the patient was brought to the operating room where he was placed in supine position. Bilateral sequential devices were placed to the lower extremities. The patient was placed under general endotracheal anesthesia, which he tolerated well. Then, a Aguirre catheter was placed under sterile condition. The patient was then prepped and draped in the usual sterile fashion. The patient was given Ancef for prophylactic antibiotics. After an adequate time-out, a Veress needle was inserted through the umbilicus into the abdominal cavity. There were good opening pressures. The abdominal cavity was insufflated to 15 mmHg, which the patient tolerated well. We then proceeded to place a 5-mm trocar into the abdominal cavity at the left upper quadrant using an Optiview trocar. We then placed a 5-mm laparoscope into the abdominal cavity. Upon entering the abdominal cavity, we were able to note that the small bowel was diffusely distended, hyperemic with no obvious signs of gangrene. There was also significant amount of peritoneal fluid at the pelvis. We then placed an additional 5-mm port at the left lower quadrant. We attempted to identify any adhesive bands or transition zones but given the amount of distention of the small bowel and concern for injuring the small bowel, we made a decision to convert to an exploratory laparotomy. The abdomen was left insufflated with CO2. At this point, a 6 cm vertical midline incision was made using a #10 blade scalpel. We then proceeded to use the Bovie cautery to transect the subcutaneous tissue down to the fascia. Once the abdominal cavity was entered, the fascia was incised along the length of the wound. At this point, again, we noted significant amount of peritoneal fluid. We also noted the hyperemic small bowel along with a significant amount of distention. At this point, we eviscerated the small bowel. At this point, we proceeded to trace the small bowel distally. There was significant distention of the small bowel as we were tracing distally to the distal terminal ileum. We did note that there was an area where the terminal ileum was collapsed, but no obvious adhesive band or mass was palpated around that region. We continued to trace the small bowel to the terminal ileum. We now proceeded to trace the small bowel proximally all the way to the ligament of Treitz. Again, small bowel was hyperemic and distended. While tracing the small bowel, we then encountered a serosal tear, and a small punctured enterotomy likely from traction to the small bowel while tracing it. We proceeded to trace the small bowel to the ligament of Treitz. The caliber of the small bowel had changed to normal caliber. Again, no gross pathology palpated or seen. We focused our attention to repairing the small enterotomy using a 3-0 Vicryl stitch and along with repairing the serosal tear using a 3-0 silk stitch. Having ran the small bowel from the ligament of Treitz to the terminal ileum, we did not find any gross pathology. Of note, we then identified there was significant amount of fecalization of the small bowel. Some of the fecalization was milked past the point where the small bowel became normal caliber with good visualization. Fecalization was manipulated through the collapsed distal ileum. No obvious obstruction noted. At this point having found no other gross pathology, we proceeded to terminate the procedure. The fascia was reapproximated using #1 loop PDS. The skin was reapproximated using the gee and the laparoscopic ports were also closed with skin gee. The patient tolerated the procedure well and extubated without any complications. He was brought to recovery room in stable condition. At the end of the procedure, there was an adequate count to all sponges, instruments and needles. Candido Somers MD MTDJesse
[2018-08-15 05:10] LABS: BASO % 0.1 % (0.0-2.0); HEMOGLOBIN 14.1 g/dL (12.0-18.0); LYMPH # 0.5 K/uL (1.0-4.3); LYMPH % 7.9 % (20.0-40.0); MEAN CELL VOLUME 96.2 fl (80.0-94.0); MEAN CORPUSCULAR HEMOGLOBIN 32.5 pg (27.0-31.0); MEAN CORPUSCULAR HGB CONC 33.8 g/dL (33.0-37.0); MEAN PLATELET VOLUME 9.5 fl (7.2-11.7); MONO # 0.5 K/uL (0.0-0.8); NEUT # 5.6 K/uL (1.8-7.0); NRBC % 0.1 % (0.0-0.0); RBC 4.33 Mil/uL (4.40-5.90); RED CELL DISTRIBUTION WIDTH 13.2 % (11.5-14.5); WHITE BLOOD COUNT 6.6 K/uL (4.8-10.8)
[2018-08-15 05:18] LABS: ALB/GLOB RATIO 1.2 (1.0-2.1); ALBUMIN 3.6 g/dL (3.5-5.0); ALT/SGPT 67 U/L (21-72); AST/SGOT 51 U/L (17-59); BLOOD UREA NITROGEN 8 mg/dl (9-20); CALCIUM 8.5 mg/dL (8.4-10.2); GFR NON-AFRICAN AMERICAN > 60
[2018-08-15] MEDS ORDERED: Magnesium Sulfate 2 gm/50 ml 2 GM/50 ML BAG IVPB ONE (06:57)
--- NOTE | 2018-08-15 07:16 | CP.PCM.PN ---
<Antonio Bustamante - Last Filed: 08/15/18 09:54> Subjective - Date & Time of Evaluation Date of Evaluation: 08/15/18 Time of Evaluation: 07:15 - Subjective Subjective: Surgery Progress note- Dr. Somers Patient seen and examined at bedside. 101.7 temp this AM. planning for antipyretic. Pain moderately controlled w/ Dilaudid. Appropriately tender around incision. Dressing C/D/I w/ some strike through. Aguirre in place, removed at bedside. NGT to suction w/ minimal output. Denies, vomiting, chest pain, shortness of breath. Objective - Vital Signs/Intake and Output Vital Signs (last 24 hours): Temp Pulse Resp BP Pulse Ox 99.4 F 112 H 18 150/84 97 08/15/18 05:21 08/15/18 05:21 08/15/18 05:21 08/15/18 05:21 08/15/18 05:21 - Medications Medications: Current Medications Acetaminophen (Tylenol 650 Mg Supp) 650 mg MS Q6 PRN PRN Reason: Fever >100.4 F Enoxaparin Sodium (Lovenox) 40 mg SC DAILY [facility]; Protocol Hydromorphone HCl (Dilaudid) 0.5 mg IVP Q3 PRN PRN Reason: Pain, severe (8-10) Stop: 08/16/18 20:20 Lactated Ringer's (Lactated Ringer's) 1,000 mls @ 125 mls/hr IV .Q8H [facility] Last Admin: 08/14/18 23:47 Dose: 125 mls/hr Potassium Chloride (Potassium Cl 10meq/50ml Sterile Water) 50 mls @ 50 mls/hr IVPB Q1 [facility] Stop: 08/15/18 08:59 Magnesium Sulfate 2 gm/ Sodium (Chloride) 104 mls @ 104 mls/hr IVPB ONCE ONE Stop: 08/15/18 07:56 Insulin Human Lispro (Humalog) 0 units SC ACHS [facility]; Protocol Last Admin: 08/14/18 22:45 Dose: Not Given Morphine Sulfate (Morphine) 2 mg IVP Q4 PRN PRN Reason: Pain, moderate (4-7) Last Admin: 08/15/18 04:05 Dose: 2 mg Ondansetron HCl (Zofran Inj) 4 mg IVP Q4 PRN PRN Reason: Nausea/Vomiting - Labs Labs: 08/15/18 04:55 08/15/18 04:55 PT 12.1 Seconds (9.8-13.1) 08/14/18 04:50 INR 1.1 08/14/18 04:50 APTT 34.1 Seconds (25.6-37.1) 08/14/18 04:50 - Constitutional Appears: Non-toxic, No Acute Distress - Head Exam Head Exam: ATRAUMATIC - Eye Exam Eye Exam: EOMI. absent: Scleral icterus - ENT Exam Additional comments: NGT in place - Respiratory Exam Respiratory Exam: NORMAL BREATHING PATTERN. absent: Accessory Muscle Use, Respiratory Distress - Cardiovascular Exam Cardiovascular Exam: Tachycardia. absent: Bradycardia, REGULAR RHYTHM - GI/Abdominal Exam GI & Abdominal Exam: Soft, Tenderness (tender around midline incision). absent: Distended, Firm, Guarding, Rigid - Extremities Exam Extremities Exam: absent: Calf Tenderness - Neurological Exam Neurological Exam: Alert, Awake, Oriented x3 - Psychiatric Exam Psychiatric exam: Normal Affect - Skin Skin Exam: Intact, Warm Assessment and Plan - Assessment and Plan (Free Text) Assessment: 32M s/p diagnostic laparoscopy, exploratory laparotomy, repair of serosal injury & enterotomy POD#1 Plan: - pain control PRN; change dose- will add Toradol RTC - allowed to clamp NGT when OOB and ambulating - Monitor Bowel function - Tight glucose control - encourage OOB and ambulate - Aguirre Removed, trial to void - Incentive Spirometer - discussed w/ Surgical attending PGY2 <Candido Somers - Last Filed: 08/15/18 10:24> Objective - Vital Signs/Intake and Output Vital Signs (last 24 hours): Temp Pulse Resp BP Pulse Ox 99.0 F 113 H 20 149/83 95 08/15/18 08:23 08/15/18 08:23 08/15/18 08:23 08/15/18 08:23 08/15/18 08:23 - Medications Medications: Current Medications Acetaminophen (Tylenol 650 Mg Supp) 650 mg MS Q6 PRN PRN Reason: Fever >100.4 F Enoxaparin Sodium (Lovenox) 40 mg SC DAILY [facility]; Protocol Hydromorphone HCl (Dilaudid) 1 mg IVP Q4 PRN PRN Reason: Pain, severe (8-10) Piperacillin Sod/Tazobactam (Sod 3.375 gm/ Sodium Chloride) 100 mls @ 100 mls/hr IVPB Q6 [facility]; Protocol Dextrose/Sodium Chloride (Dextrose 5%-0.45% Ns 500 Ml) 500 mls @ 80 mls/hr IV .Q6H15M [facility] Stop: 08/16/18 10:04 Insulin Human Lispro (Humalog) 0 units SC ACHS [facility]; Protocol Ketorolac Tromethamine (Toradol) 15 mg IVP Q6 [facility] Stop: 08/23/18 10:01 Morphine Sulfate (Morphine) 4 mg IVP Q4 PRN PRN Reason: Pain, Mild (1-3) Morphine Sulfate (Morphine) 6 mg IVP Q4 PRN PRN Reason: Pain, moderate (4-7) Ondansetron HCl (Zofran Inj) 4 mg IVP Q4 PRN PRN Reason: Nausea/Vomiting Pantoprazole Sodium (Protonix Inj) 40 mg IVP DAILY [facility] - Labs Labs: 08/15/18 04:55 08/15/18 04:55 PT 12.1 Seconds (9.8-13.1) 08/14/18 04:50 INR 1.1 08/14/18 04:50 APTT 34.1 Seconds (25.6-37.1) 08/14/18 04:50 Assessment and Plan - Assessment and Plan (Free Text) Plan: seen at bedside, no overnight event. Pt reports incisional pain relieved with pain meds. Pt remains NPO with NGT in place minimal output. Pt denies any flatus or BM. U/O: 950cc NGT: minimal gen: awake, alert, NAd no acute respiratory distress abd: soft, distended, incisional tenderness, +BS, midline incision with dressing in place ext: -edema -Toradol 15mg Q6, Morphine, Dilaudid -incentive spirometry -cont NPO -maintance IVFs -Protonix -would recommend discontinuing IV abx -dvt prophylaxis -pt needs adequate blood sugar control -phan marsh, void trial -OOB to chair, ambulation -may clamp NGT for ambulation
--- NOTE | 2018-08-15 09:02 | CP.PCM.PN ---
<Hansa Hassan - Last Filed: 08/15/18 10:55> Subjective - Date & Time of Evaluation Date of Evaluation: 08/15/18 Time of Evaluation: 08:00 - Subjective Subjective: [id number] Pt is a 32 yo M admitted due to high grade SBO s/p exploratory laparotomy and repair of enterotomy and serosal tear doing well POD #1. Pt seen at bedside, pt had low grade fever overnight 99, reports his pain is controlled and is felling better. Pt is NPO, and has not passed flatus or had bowel movement since surgery. NG tube in place draining <5 cc of fluid. Denies Chills/CP/SOB/N/V/D or dysuria. Objective - Vital Signs/Intake and Output Vital Signs (last 24 hours): Temp Pulse Resp BP Pulse Ox 99.0 F 113 H 20 149/83 95 08/15/18 08:23 08/15/18 08:23 08/15/18 08:23 08/15/18 08:23 08/15/18 08:23 - Medications Medications: Current Medications Acetaminophen (Tylenol 650 Mg Supp) 650 mg [place] Q6 PRN PRN Reason: Fever >100.4 F Enoxaparin Sodium (Lovenox) 40 mg SC DAILY DONNA; Protocol Hydromorphone HCl (Dilaudid) 0.5 mg IVP Q3 PRN PRN Reason: Pain, severe (8-10) Stop: 08/16/18 20:20 Lactated Ringer's (Lactated Ringer's) 1,000 mls @ 125 mls/hr IV .Q8H DONNA Last Admin: 08/14/18 23:47 Dose: 125 mls/hr Piperacillin Sod/Tazobactam (Sod 3.375 gm/ Sodium Chloride) 100 mls @ 100 mls/hr IVPB Q6 DONNA; Protocol Insulin Human Lispro (Humalog) 0 units SC ACHS DONNA; Protocol Morphine Sulfate (Morphine) 2 mg IVP Q4 PRN PRN Reason: Pain, moderate (4-7) Last Admin: 08/15/18 04:05 Dose: 2 mg Ondansetron HCl (Zofran Inj) 4 mg IVP Q4 PRN PRN Reason: Nausea/Vomiting - Labs Labs: 08/15/18 04:55 08/15/18 04:55 PT 12.1 Seconds (9.8-13.1) 08/14/18 04:50 INR 1.1 08/14/18 04:50 APTT 34.1 Seconds (25.6-37.1) 08/14/18 04:50 - Constitutional Appears: Non-toxic, No Acute Distress - Head Exam Head Exam: ATRAUMATIC, NORMOCEPHALIC Additional comments: Fecal odor from breath - Eye Exam Eye Exam: EOMI, Scleral icterus - ENT Exam ENT Exam: Mucous Membranes Moist Additional comments: NG tube in place in R nostril - Respiratory Exam Respiratory Exam: Clear to Ausculation Bilateral. absent: Rales, Rhonchi, Wheezes - Cardiovascular Exam Cardiovascular Exam: Tachycardia, +S1, +S2 - GI/Abdominal Exam GI & Abdominal Exam: Soft, Tenderness (Appropriate post surgical, near incision), Hyperactive Bowel Sounds. absent: Guarding, Rigid, Rebound Additional comments: Vertical midline incision covered with dressing, scant dried blood noted. Two L sided laparoscopy incisions covered clean dry - Extremities Exam Extremities Exam: Normal Inspection - Neurological Exam Neurological Exam: Alert, Awake, Oriented x3 Assessment and Plan - Assessment and Plan (Free Text) Assessment: Pt is a 32 yo M admitted due to high grade SBO s/p exploratory laparotomy and repair of enterotomy and serosal tear, doing well POD #1. Plan: SBO s/p Explor Lap and Repair of Enterotomy and serosal tear POD#1 - Abd CT: Evidence of high grade small bowel obstruction. - NGT in place - NPO diet - Incentive spirometry - IVF-D5 1/2NS @80ml/hr - Tele monitor - pain management, afebrile - General Surgery consulted, recs appreciated - Zosyn 3.37gm IV Q6 Day #1 - F/u CBC, CMP in AM Newly Diagnosed DM type II - family h/o DM, POC 212 - HGA1C- 12.4 (08/14/18) - [place] sliding scale - Accucheck - Hypoglycemic protocol - Diabteic education referral Sinus Tachycardia -HR 113 -Pt on telemetry for monitoring post op tachy pain, fever vs Hypovolemia Hepatic steatosis, Transaminitis, Hyperbilirubinemia - RUQ US: No evidence of cholelithiasis or acute cholecystitis. Hepatomegaly with hepatic steatosis - AST/ALT: 51/67 normalized today - TB: 2.4 increased from 2.2 - f/u D. bili and CMP DVT ppx -Lovenox 40mg SC daily <EvertThea Anupama - Last Filed: 08/15/18 16:38> Objective - Vital Signs/Intake and Output Vital Signs (last 24 hours): Temp Pulse Resp BP Pulse Ox 99.0 F 99 H 18 137/83 95 08/15/18 15:54 08/15/18 15:54 08/15/18 15:54 08/15/18 15:54 08/15/18 15:54 - Medications Medications: Current Medications Acetaminophen (Tylenol 650 Mg Supp) 650 mg [place] Q6 PRN PRN Reason: Fever >100.4 F Last Admin: 08/15/18 10:46 Dose: 650 mg Dextrose (Dextrose 50% Inj) 0 ml IV STAT PRN; Protocol PRN Reason: Hypoglycemia Protocol Dextrose (Glutose 15) 0 gm PO ONCE PRN; Protocol PRN Reason: Hypoglycemia Protocol Enoxaparin Sodium (Lovenox) 40 mg SC DAILY DONNA; Protocol Glucagon (Glucagen Diagnostic Kit) 0 mg IM STAT PRN; Protocol PRN Reason: Hypoglycemia Protocol Hydromorphone HCl (Dilaudid) 1 mg IVP Q4 PRN PRN Reason: Pain, severe (8-10) Piperacillin Sod/Tazobactam (Sod 3.375 gm/ Sodium Chloride) 100 mls @ 100 mls/hr IVPB Q6 DONNA; Protocol Last Admin: 08/15/18 10:46 Dose: 100 mls/hr Dextrose/Sodium Chloride (Dextrose 5%-0.45% Ns 500 Ml) 500 mls @ 80 mls/hr IV .Q6H15M [facility] Stop: 08/16/18 10:04 Insulin Detemir (Levemir) 6 units SC HS [facility] Insulin Human Lispro (Humalog) 0 units SC ACHS [facility]; Protocol Last Admin: 08/15/18 13:24 Dose: 3 units Ketorolac Tromethamine (Toradol) 15 mg IVP Q6 [facility] Stop: 08/23/18 10:01 Last Admin: 08/15/18 10:50 Dose: 15 mg Morphine Sulfate (Morphine) 4 mg IVP Q4 PRN PRN Reason: Pain, Mild (1-3) Morphine Sulfate (Morphine) 6 mg IVP Q4 PRN PRN Reason: Pain, moderate (4-7) Ondansetron HCl (Zofran Inj) 4 mg IVP Q4 PRN PRN Reason: Nausea/Vomiting Pantoprazole Sodium (Protonix Inj) 40 mg IVP DAILY DONNA Last Admin: 08/15/18 10:52 Dose: 40 mg - Labs Labs: 08/15/18 04:55 08/15/18 04:55 PT 12.1 Seconds (9.8-13.1) 08/14/18 04:50 INR 1.1 08/14/18 04:50 APTT 34.1 Seconds (25.6-37.1) 08/14/18 04:50 Attending/Attestation - Attestation I have personally seen and examined this patient.: Yes I have fully participated in the care of the patient.: Yes I have reviewed all pertinent clinical information, including history, physical exam and plan: Yes Notes (Text): SBO s/p Explor Lap and Repair of Enterotomy Newly Diagnosed DM type II Sinus Tachycardia - no BM, flatus - keep NPO, NGT in place - IV Zosyn empirically ( pt had Enterotomy) however Surgery rec to d/c , will d/c and just monitor pt closely -Lovenox for DVT proph -Pain mgt - IVF hydration - Accucheck with coverage , start low dose long acting Insulin -DM education
[2018-08-15] MEDS ORDERED: Morphine 4 MG/ML VIAL IVP PRN (09:54)
[2018-08-15] MEDS ORDERED: Piperacillin/Tazobact 3.375 GM in Sodium Chloride 0.9% 100 ML IVPB SCH (10:00)
[2018-08-15] MEDS: Enoxaparin 40 mg Syringe SC SCH (10:00)
[2018-08-15] MEDS: Potassium CL 10 MEQ/50 ML 50 ML IVPB SCH ×2 (10:25→11:34)
[2018-08-15] MEDS ORDERED: Chlorhexidine Gluconate 1 APPL/PKT TP ONE (10:36)
[2018-08-15] MEDS ORDERED: Glucagon Recombinant 1 mg Inj IM PRN (11:27)
[2018-08-15] MEDS ORDERED: Dextrose 50% SYRINGE Inj (50 ml) IV PRN (11:27)
[2018-08-15] MEDS: Insulin Lispro (humaLOG) 100 Units/ml Inj SC SCH ×3 (13:24→21:26)
[2018-08-15] MEDS ORDERED: Insulin Detemir 100 Units/ml Inj SC SCH (22:00)
[2018-08-16 05:25] LABS: BASO % 0.2 % (0.0-2.0); EOS % 0.2 % (0.0-4.0); HEMOGLOBIN 12.9 g/dL (12.0-18.0); LYMPH # 0.4 K/uL (1.0-4.3); MEAN CORPUSCULAR HEMOGLOBIN 32.5 pg (27.0-31.0); MEAN CORPUSCULAR HGB CONC 33.8 g/dL (33.0-37.0); MEAN PLATELET VOLUME 9.7 fl (7.2-11.7); MONO # 0.7 K/uL (0.0-0.8); MONO % 18.7 % (0.0-10.0); NEUT # 2.6 K/uL (1.8-7.0); NEUT % 69.9 % (50.0-75.0); NRBC % 0.1 % (0.0-0.0); RBC 3.97 Mil/uL (4.40-5.90); RED CELL DISTRIBUTION WIDTH 13.1 % (11.5-14.5); WHITE BLOOD COUNT 3.7 K/uL (4.8-10.8)
[2018-08-16 05:33] LABS: ALB/GLOB RATIO 1.2 (1.0-2.1); ALBUMIN 3.6 g/dL (3.5-5.0); ALT/SGPT 51 U/L (21-72); AST/SGOT 45 U/L (17-59); BILIRUBIN,DIRECT 0.4 mg/ml (0.0-0.4); BLOOD UREA NITROGEN 12 mg/dl (9-20); GFR NON-AFRICAN AMERICAN > 60
[2018-08-16] MEDS ORDERED: POTASSIUM CHLORIDE IV SCH (06:42)
[2018-08-16] MEDS ORDERED: [UNRECOGNIZED DRUG - OTHER] IV SCH (06:42)
[2018-08-16] MEDS ORDERED: DEXTROSE IV SCH (06:42)
--- NOTE | 2018-08-16 07:47 | CP.PCM.PN ---
<Hansa Hassan - Last Filed: 08/16/18 14:15> Subjective - Date & Time of Evaluation Date of Evaluation: 08/16/18 Time of Evaluation: 13:27 - Subjective Subjective: [id number] Pt is a 32 yo M admitted due to high grade SBO s/p exploratory laparotomy and repair of enterotomy and serosal tear doing well POD #2. Pt seen at bedside, NG tube has been removed. Pt reports abdominal pain controlled with medication, pt is NPO, surgery to advance his diet today. Pt has passed flatus, pt has not had a bowel movement since surgery. Denies F/C/CP/SOB/N/V or dysuria. Objective - Vital Signs/Intake and Output Vital Signs (last 24 hours): Temp Pulse Resp BP Pulse Ox 99.1 F 99 H 18 169/97 H 95 08/16/18 07:47 08/16/18 07:47 08/16/18 07:47 08/16/18 07:47 08/16/18 07:47 - Medications Medications: Current Medications Acetaminophen (Tylenol 650 Mg Supp) 650 mg [place] Q6 PRN PRN Reason: Fever >100.4 F Last Admin: 08/15/18 10:46 Dose: 650 mg Dextrose (Dextrose 50% Inj) 0 ml IV STAT PRN; Protocol PRN Reason: Hypoglycemia Protocol Dextrose (Glutose 15) 0 gm PO ONCE PRN; Protocol PRN Reason: Hypoglycemia Protocol Enoxaparin Sodium (Lovenox) 40 mg SC DAILY DONNA; Protocol Last Admin: 08/15/18 10:00 Dose: 40 mg Glucagon (Glucagen Diagnostic Kit) 0 mg IM STAT PRN; Protocol PRN Reason: Hypoglycemia Protocol Hydromorphone HCl (Dilaudid) 1 mg IVP Q4 PRN PRN Reason: Pain, severe (8-10) Potassium Chloride/Dextrose/Sod Cl (Potassium Chl 40 Meq In D5-1/2ns) 1,000 mls @ 80 mls/hr IV .[id number] [facility] Stop: 08/17/18 07:01 Insulin Detemir (Levemir) 6 units SC HS [facility] Last Admin: 08/15/18 21:24 Dose: 6 units Insulin Human Lispro (Humalog) 0 units SC ACHS DONNA; Protocol Last Admin: 08/15/18 21:26 Dose: Not Given Ketorolac Tromethamine (Toradol) 15 mg IVP Q6 [facility] Stop: 08/23/18 10:01 Last Admin: 08/16/18 03:29 Dose: 15 mg Morphine Sulfate (Morphine) 4 mg IVP Q4 PRN PRN Reason: Pain, Mild (1-3) Morphine Sulfate (Morphine) 6 mg IVP Q4 PRN PRN Reason: Pain, moderate (4-7) Ondansetron HCl (Zofran Inj) 4 mg IVP Q4 PRN PRN Reason: Nausea/Vomiting Pantoprazole Sodium (Protonix Inj) 40 mg IVP DAILY [facility] Last Admin: 08/15/18 10:52 Dose: 40 mg - Labs Labs: 08/16/18 04:55 08/16/18 04:55 PT 12.1 Seconds (9.8-13.1) 08/14/18 04:50 INR 1.1 08/14/18 04:50 APTT 34.1 Seconds (25.6-37.1) 08/14/18 04:50 - Constitutional Appears: Non-toxic, No Acute Distress - Head Exam Head Exam: ATRAUMATIC, NORMAL INSPECTION, NORMOCEPHALIC - Eye Exam Eye Exam: EOMI - ENT Exam ENT Exam: Mucous Membranes Moist - Respiratory Exam Respiratory Exam: Clear to Ausculation Bilateral. absent: Rales, Rhonchi, Wheezes - Cardiovascular Exam Cardiovascular Exam: Tachycardia, +S1, +S2 - GI/Abdominal Exam GI & Abdominal Exam: Distended, Soft, Tenderness, Normal Bowel Sounds Additional comments: Vertical incision gee, dried blood noted, intact. 2 laparoscopic incisions noted intact with gee - Extremities Exam Extremities Exam: Normal Inspection. absent: Pedal Edema - Neurological Exam Neurological Exam: Alert, Awake, Oriented x3 Assessment and Plan - Assessment and Plan (Free Text) Assessment: Pt is a 32 yo M admitted due to high grade SBO s/p exploratory laparotomy and repair of enterotomy and serosal tear, doing well POD #2. Plan: SBO s/p Explor Lap and Repair of Enterotomy and serosal tear POD#2 - Abd CT: Evidence of high grade small bowel obstruction. - NGT removed today - NPO diet, surgery to advance as tolerated after GI series - c/w Incentive spirometry - Tele monitor to be transferred to [facility] - pain management, afebrile (99F) - General Surgery consulted, recs appreciated - Zosyn 3.37gm - received 1 dose- discontinued by surgery - F/u CBC, CMP, small bowel series in AM Newly Diagnosed DM type II - family h/o DM, POC 212 - HGA1C- 12.4 (08/14/18) - Levemir 10units QHS - Insulin sliding scale - Accucheck - Hypoglycemic protocol - Diabteic education referral Hypokalemia -K 3.3 -c/w potassium 80ml -F/u CMP in AM Sinus Tachycardia, Elevated BP -HR 99, BP 169/97 -consider post op tachy pain, low grade fever vs Hypovolemia -started cozaar 25mg QD -continue to monitor Hepatic steatosis, Hyperbilirubinemia, Transaminitis-resolved - RUQ US: No evidence of cholelithiasis or acute cholecystitis. Hepatomegaly with hepatic steatosis - AST/ALT: 45/51 - TB: 2.2, D bili 0.4 - f/u CMP in AM DVT ppx -Lovenox 40mg SC daily <Breanna Mesa - Last Filed: 08/19/18 13:04> Objective - Vital Signs/Intake and Output Vital Signs (last 24 hours): Temp Pulse Resp BP Pulse Ox 98.3 F 98 H 20 136/85 96 08/19/18 08:54 08/19/18 08:54 08/19/18 08:54 08/19/18 08:54 08/19/18 08:54 - Medications Medications: Current Medications Acetaminophen (Tylenol 650 Mg Supp) 650 mg [place] Q6 PRN PRN Reason: Fever >100.4 F Last Admin: 08/15/18 10:46 Dose: 650 mg Dextrose (Dextrose 50% Inj) 0 ml IV STAT PRN; Protocol PRN Reason: Hypoglycemia Protocol Dextrose (Glutose 15) 0 gm PO ONCE PRN; Protocol PRN Reason: Hypoglycemia Protocol Enoxaparin Sodium (Lovenox) 40 mg SC DAILY DONNA; Protocol Last Admin: 08/19/18 08:11 Dose: 40 mg Glipizide (Glucotrol Xl) 5 mg PO BRK DONNA Last Admin: 08/19/18 08:12 Dose: 5 mg Glucagon (Glucagen Diagnostic Kit) 0 mg IM STAT PRN; Protocol PRN Reason: Hypoglycemia Protocol Hydromorphone HCl (Dilaudid) 1 mg IVP Q4 PRN PRN Reason: Pain, severe (8-10) Last Admin: 08/17/18 18:42 Dose: 1 mg Insulin Detemir (Levemir) 15 units SC [facility] Last Admin: 08/18/18 22:18 Dose: 15 u Insulin Human Lispro (Humalog) 0 units SC ACHS [facility]; Protocol Last Admin: 08/19/18 11:55 Dose: 2 units Losartan Potassium (Cozaar) 50 mg PO DAILY [facility] Last Admin: 08/19/18 08:12 Dose: 50 mg Morphine Sulfate (Morphine) 6 mg IVP Q4 PRN PRN Reason: Pain, moderate (4-7) Last Admin: 08/18/18 08:59 Dose: 6 mg Morphine Sulfate (Morphine) 4 mg IVP Q4 PRN PRN Reason: Pain, Mild (1-3) Last Admin: 08/18/18 21:09 Dose: 4 mg Ondansetron HCl (Zofran Inj) 4 mg IVP Q4 PRN PRN Reason: Nausea/Vomiting Last Admin: 08/19/18 06:20 Dose: 4 mg Pantoprazole Sodium (Protonix Inj) 40 mg IVP DAILY [facility] Last Admin: 08/19/18 08:13 Dose: 40 mg - Labs Labs: 08/19/18 05:50 08/19/18 05:50 PT 12.1 Seconds (9.8-13.1) 08/14/18 04:50 INR 1.1 08/14/18 04:50 APTT 34.1 Seconds (25.6-37.1) 08/14/18 04:50 Attending/Attestation - Attestation I have personally seen and examined this patient.: Yes I have fully participated in the care of the patient.: Yes I have reviewed all pertinent clinical information, including history, physical exam and plan: Yes Notes (Text): Agree with findings and plan as above.
[2018-08-16] MEDS: Insulin Lispro (humaLOG) 100 Units/ml Inj SC SCH ×4 (08:48→22:44)
[2018-08-16] MEDS: Enoxaparin 40 mg Syringe SC SCH (09:11)
[2018-08-16] MEDS: Potassium Chl 40 mEq in D5-1/2 1,000 ML IV SCH ×2 (09:12→20:54)
[2018-08-16] MEDS ORDERED: Potassium Chloride 20 mEq/15 ml LIQ UD PO ONE (09:30)
--- NOTE | 2018-08-16 09:44 | CP.PCM.PN ---
Subjective - Date & Time of Evaluation Date of Evaluation: 08/16/18 Time of Evaluation: 09:31 - Subjective Subjective: General Surgery Pt seen and examined this AM. He reports passing gas since last night and feels some improvement with his abdominal pain since that. He has been ambulatory and using the IS. He reports having incisional abdominal pain at this time. Labs ad vitals noted PE Gen: Pt laying in bed in NAD. Skin: warm and dry, see abd Cardio: s1s2 RRR Lungs: CTA bilaterally Abd: soft, (+) distended, (+) stapled surgical incisions with dry blood, (+) intact Extr: (-) calf swelling bilaterally A/P 32M s/p diagnostic laparoscopy, exploratory laparotomy, repair of serosal injury & enterotomy POD#2 NGT removed by me Upper GI series today then afterwards can start on clears Continue IVF for now Replete K Encourage OOB BG control, insulin adjustments made by medicine Pain meds prn Objective - Vital Signs/Intake and Output Vital Signs (last 24 hours): Temp Pulse Resp BP Pulse Ox 99.1 F 99 H 18 169/97 H 95 08/16/18 07:47 08/16/18 07:47 08/16/18 07:47 08/16/18 07:47 08/16/18 07:47 - Medications Medications: Current Medications Acetaminophen (Tylenol 650 Mg Supp) 650 mg [place] Q6 PRN PRN Reason: Fever >100.4 F Last Admin: 08/15/18 10:46 Dose: 650 mg Dextrose (Dextrose 50% Inj) 0 ml IV STAT PRN; Protocol PRN Reason: Hypoglycemia Protocol Dextrose (Glutose 15) 0 gm PO ONCE PRN; Protocol PRN Reason: Hypoglycemia Protocol Enoxaparin Sodium (Lovenox) 40 mg SC DAILY DONNA; Protocol Last Admin: 08/16/18 09:11 Dose: 40 mg Glucagon (Glucagen Diagnostic Kit) 0 mg IM STAT PRN; Protocol PRN Reason: Hypoglycemia Protocol Hydromorphone HCl (Dilaudid) 1 mg IVP Q4 PRN PRN Reason: Pain, severe (8-10) Potassium Chloride/Dextrose/Sod Cl (Potassium Chl 40 Meq In D5-1/2ns) 1,000 mls @ 80 mls/hr IV .[id number] [facility] Stop: 08/17/18 07:01 Last Admin: 08/16/18 09:12 Dose: 80 mls/hr Insulin Detemir (Levemir) 6 units SC [facility] Last Admin: 08/15/18 21:24 Dose: 6 units Insulin Human Lispro (Humalog) 0 units SC [facility]; Protocol Last Admin: 08/16/18 08:48 Dose: 3 units Ketorolac Tromethamine (Toradol) 15 mg IVP Q6 [facility] Stop: 08/16/18 22:01 Last Admin: 08/16/18 09:14 Dose: 15 mg Morphine Sulfate (Morphine) 4 mg IVP Q4 PRN PRN Reason: Pain, Mild (1-3) Morphine Sulfate (Morphine) 6 mg IVP Q4 PRN PRN Reason: Pain, moderate (4-7) Ondansetron HCl (Zofran Inj) 4 mg IVP Q4 PRN PRN Reason: Nausea/Vomiting Pantoprazole Sodium (Protonix Inj) 40 mg IVP DAILY [facility] Last Admin: 08/16/18 09:12 Dose: 40 mg Potassium Chloride (Potassium Chloride Oral Soln) 20 meq PO ONCE ONE Stop: 08/16/18 09:31 - Labs Labs: 08/16/18 04:55 08/16/18 04:55 PT 12.1 Seconds (9.8-13.1) 08/14/18 04:50 INR 1.1 08/14/18 04:50 APTT 34.1 Seconds (25.6-37.1) 08/14/18 04:50
--- NOTE | 2018-08-16 09:49 | CARD ---
APPROVED REPORT Date of service: 08/15/2018 EKG Measurement Heart [id number] <Conclusion> Normal sinus rhythm Normal ECG
[2018-08-16] MEDS ORDERED: Barium Sulfate Susp 0.1% w/v, 0.1% w/w 450 mL Bottle PO ONE (10:25)
[2018-08-16] MEDS ORDERED: Insulin Detemir 100 Units/ml Inj SC SCH (22:00)
[2018-08-17 07:20] LABS: BASO % 0.4 % (0.0-2.0); EOS # 0.1 K/uL (0.0-0.7); HEMOGLOBIN 12.9 g/dL (12.0-18.0); LYMPH # 0.5 K/uL (1.0-4.3); LYMPH % 16.9 % (20.0-40.0); MEAN CELL VOLUME 95.9 fl (80.0-94.0); MEAN CORPUSCULAR HEMOGLOBIN 32.5 pg (27.0-31.0); MEAN CORPUSCULAR HGB CONC 33.9 g/dL (33.0-37.0); MEAN PLATELET VOLUME 9.1 fl (7.2-11.7); MONO # 0.8 K/uL (0.0-0.8); MONO % 25.4 % (0.0-10.0); NEUT # 1.7 K/uL (1.8-7.0); NEUT % 54.3 % (50.0-75.0); PLATELET COUNT 142 K/uL (130-400); RBC 3.97 Mil/uL (4.40-5.90); RED CELL DISTRIBUTION WIDTH 12.9 % (11.5-14.5); WHITE BLOOD COUNT 3.2 K/uL (4.8-10.8)
[2018-08-17 07:47] LABS: ALB/GLOB RATIO 1.1 (1.0-2.1); ALBUMIN 3.6 g/dL (3.5-5.0); ALT/SGPT 44 U/L (21-72); AST/SGOT 42 U/L (17-59); BLOOD UREA NITROGEN 12 mg/dl (9-20); CALCIUM 9.1 mg/dL (8.4-10.2); GFR NON-AFRICAN AMERICAN > 60
--- NOTE | 2018-08-17 08:21 | CP.PCM.PN ---
<Luma George - Last Filed: 08/17/18 08:07> Subjective - Date & Time of Evaluation Date of Evaluation: 08/17/18 Time of Evaluation: 08:07 - Subjective Subjective: General surgery - Pebbles Pt S&E. DEJUAN. Pt states that after the small bowel series yesterday he had a large BM. He denies any abdominal pain currently, he also denies any nausea or vomiting, fevers or chills, SOB or chest pain. Objective - Vital Signs/Intake and Output Vital Signs (last 24 hours): Temp Pulse Resp BP Pulse Ox 97.5 F L 83 19 125/85 97 08/17/18 01:11 08/17/18 01:11 08/17/18 01:11 08/17/18 01:11 08/17/18 01:11 - Medications Medications: Current Medications Acetaminophen (Tylenol 650 Mg Supp) 650 mg [place] Q6 PRN PRN Reason: Fever >100.4 F Last Admin: 08/15/18 10:46 Dose: 650 mg Dextrose (Dextrose 50% Inj) 0 ml IV STAT PRN; Protocol PRN Reason: Hypoglycemia Protocol Dextrose (Glutose 15) 0 gm PO ONCE PRN; Protocol PRN Reason: Hypoglycemia Protocol Enoxaparin Sodium (Lovenox) 40 mg SC DAILY [facility]; Protocol Last Admin: 08/16/18 09:11 Dose: 40 mg Glucagon (Glucagen Diagnostic Kit) 0 mg IM STAT PRN; Protocol PRN Reason: Hypoglycemia Protocol Hydromorphone HCl (Dilaudid) 1 mg IVP Q4 PRN PRN Reason: Pain, severe (8-10) Last Admin: 08/17/18 06:56 Dose: 1 mg Insulin Detemir (Levemir) 15 units SC [facility] Insulin Human Lispro (Humalog) 0 units SC [facility]; Protocol Last Admin: 08/16/18 22:44 Dose: Not Given Losartan Potassium (Cozaar) 25 mg PO DAILY [facility] Last Admin: 08/16/18 22:14 Dose: 25 mg Morphine Sulfate (Morphine) 4 mg IVP Q4 PRN PRN Reason: Pain, Mild (1-3) Morphine Sulfate (Morphine) 6 mg IVP Q4 PRN PRN Reason: Pain, moderate (4-7) Ondansetron HCl (Zofran Inj) 4 mg IVP Q4 PRN PRN Reason: Nausea/Vomiting Pantoprazole Sodium (Protonix Inj) 40 mg IVP DAILY [facility] Last Admin: 08/16/18 09:12 Dose: 40 mg - Labs Labs: 08/17/18 05:30 08/17/18 05:30 PT 12.1 Seconds (9.8-13.1) 08/14/18 04:50 INR 1.1 08/14/18 04:50 APTT 34.1 Seconds (25.6-37.1) 08/14/18 04:50 - Constitutional Appears: No Acute Distress - Head Exam Head Exam: ATRAUMATIC, NORMAL INSPECTION, NORMOCEPHALIC - Eye Exam Eye Exam: Normal appearance - ENT Exam ENT Exam: Mucous Membranes Moist - Respiratory Exam Respiratory Exam: NORMAL BREATHING PATTERN. absent: Respiratory Distress - Cardiovascular Exam Cardiovascular Exam: REGULAR RHYTHM - GI/Abdominal Exam GI & Abdominal Exam: Soft. absent: Distended, Firm, Guarding, Rigid (midline incision c/d/i), Tenderness, Rebound - Neurological Exam Neurological Exam: Alert, Oriented x3 - Psychiatric Exam Psychiatric exam: Normal Affect, Normal Mood - Skin Skin Exam: Dry, Intact Assessment and Plan - Assessment and Plan (Free Text) Assessment: 32M s/p diagnostic laparoscopy, exploratory laparotomy, repair of serosal injury & enterotomy POD#3 -Small bowel series done yesterday, Pt had bowel movement post study -Start clear liquids and monitor -Encourage OOB and ambulation -pain control prn Dw Dr Pebbles George PGY4 <Rachid Rogel - Last Filed: 08/17/18 16:09> Subjective - Date & Time of Evaluation Time of Evaluation: 15:30 - Subjective Subjective: Patient was seen and examined at the bedside. Agree with resident's note above. Passing flatus and having several bowel movements yesterday and today. Objective - Vital Signs/Intake and Output Vital Signs (last 24 hours): Temp Pulse Resp BP Pulse Ox 98.5 F 97 H 20 150/95 H 93 L 08/17/18 08:40 08/17/18 09:20 08/17/18 08:40 08/17/18 09:20 08/17/18 08:40 - Medications Medications: Current Medications Acetaminophen (Tylenol 650 Mg Supp) 650 mg [place] Q6 PRN PRN Reason: Fever >100.4 F Last Admin: 08/15/18 10:46 Dose: 650 mg Dextrose (Dextrose 50% Inj) 0 ml IV STAT PRN; Protocol PRN Reason: Hypoglycemia Protocol Dextrose (Glutose 15) 0 gm PO ONCE PRN; Protocol PRN Reason: Hypoglycemia Protocol Enoxaparin Sodium (Lovenox) 40 mg SC DAILY [facility]; Protocol Last Admin: 08/17/18 10:14 Dose: 40 mg Glucagon (Glucagen Diagnostic Kit) 0 mg IM STAT PRN; Protocol PRN Reason: Hypoglycemia Protocol Hydromorphone HCl (Dilaudid) 1 mg IVP Q4 PRN PRN Reason: Pain, severe (8-10) Last Admin: 08/17/18 12:12 Dose: 1 mg Insulin Detemir (Levemir) 15 units SC [facility] Insulin Human Lispro (Humalog) 0 units SC [facility]; Protocol Last Admin: 08/17/18 12:03 Dose: 2 units Losartan Potassium (Cozaar) 25 mg PO DAILY [facility] Last Admin: 08/17/18 09:20 Dose: 25 mg Morphine Sulfate (Morphine) 4 mg IVP Q4 PRN PRN Reason: Pain, Mild (1-3) Morphine Sulfate (Morphine) 6 mg IVP Q4 PRN PRN Reason: Pain, moderate (4-7) Ondansetron HCl (Zofran Inj) 4 mg IVP Q4 PRN PRN Reason: Nausea/Vomiting Pantoprazole Sodium (Protonix Inj) 40 mg IVP DAILY [facility] Last Admin: 08/17/18 09:35 Dose: 40 mg - Labs Labs: 08/17/18 05:30 08/17/18 05:30 PT 12.1 Seconds (9.8-13.1) 08/14/18 04:50 INR 1.1 08/14/18 04:50 APTT 34.1 Seconds (25.6-37.1) 08/14/18 04:50 - GI/Abdominal Exam Additional comments: soft, NT, mildly distended, BS+, no rebound, no guarding, incisions clean, no erythema, no drainage, gee in place Assessment and Plan - Assessment and Plan (Free Text) Plan: - Clear liquid diet - IV fluids - pain control - Insentive spirometry - DVT ppx - Out of bed and ambulate - repeat labs in am - Will follow
[2018-08-17] MEDS: Insulin Lispro (humaLOG) 100 Units/ml Inj SC SCH ×4 (09:17→22:01)
--- NOTE | 2018-08-17 09:21 | CP.PCM.PN ---
<Huy Beltre - Last Filed: 08/17/18 09:22> Subjective - Date & Time of Evaluation Date of Evaluation: 08/17/18 Time of Evaluation: 08:00 - Subjective Subjective: Seen at bedside this AM in not acute distress. Pain has improved. Afebrile. Tolerated PO clear diet last night. Is ambulating in the floor ad asim. Had BM last night and is passing gasses. Denies vomiting/nausea. Objective - Vital Signs/Intake and Output Vital Signs (last 24 hours): Temp Pulse Resp BP Pulse Ox 98.5 F 97 H 20 150/95 H 93 L 08/17/18 08:40 08/17/18 08:40 08/17/18 08:40 08/17/18 08:40 08/17/18 08:40 - Medications Medications: Current Medications Acetaminophen (Tylenol 650 Mg Supp) 650 mg DE Q6 PRN PRN Reason: Fever >100.4 F Last Admin: 08/15/18 10:46 Dose: 650 mg Dextrose (Dextrose 50% Inj) 0 ml IV STAT PRN; Protocol PRN Reason: Hypoglycemia Protocol Dextrose (Glutose 15) 0 gm PO ONCE PRN; Protocol PRN Reason: Hypoglycemia Protocol Enoxaparin Sodium (Lovenox) 40 mg SC DAILY [facility]; Protocol Last Admin: 08/16/18 09:11 Dose: 40 mg Glucagon (Glucagen Diagnostic Kit) 0 mg IM STAT PRN; Protocol PRN Reason: Hypoglycemia Protocol Hydromorphone HCl (Dilaudid) 1 mg IVP Q4 PRN PRN Reason: Pain, severe (8-10) Last Admin: 08/17/18 06:56 Dose: 1 mg Insulin Detemir (Levemir) 15 units SC [facility] Insulin Human Lispro (Humalog) [address] [facility]; Protocol Last Admin: 08/16/18 22:44 Dose: Not Given Losartan Potassium (Cozaar) 25 mg PO DAILY [facility] Last Admin: 08/16/18 22:14 Dose: 25 mg Morphine Sulfate (Morphine) 4 mg IVP Q4 PRN PRN Reason: Pain, Mild (1-3) Morphine Sulfate (Morphine) 6 mg IVP Q4 PRN PRN Reason: Pain, moderate (4-7) Ondansetron HCl (Zofran Inj) 4 mg IVP Q4 PRN PRN Reason: Nausea/Vomiting Pantoprazole Sodium (Protonix Inj) 40 mg IVP DAILY [facility] Last Admin: 08/16/18 09:12 Dose: 40 mg - Labs Labs: 08/17/18 05:30 08/17/18 05:30 PT 12.1 Seconds (9.8-13.1) 08/14/18 04:50 INR 1.1 08/14/18 04:50 APTT 34.1 Seconds (25.6-37.1) 08/14/18 04:50 - Constitutional Appears: Non-toxic - Eye Exam Eye Exam: EOMI, PERRL - ENT Exam ENT Exam: Mucous Membranes Moist - Respiratory Exam Respiratory Exam: Clear to Ausculation Bilateral, NORMAL BREATHING PATTERN. absent: Decreased Breath Sounds, Rales - Cardiovascular Exam Cardiovascular Exam: REGULAR RHYTHM, +S1, +S2. absent: Gallop - GI/Abdominal Exam GI & Abdominal Exam: Distended, Tenderness (Mild, diffuse). absent: Guarding, Soft, Mass, Rebound - Extremities Exam Extremities Exam: absent: Calf Tenderness, Pedal Edema - Neurological Exam Neurological Exam: Alert, Awake, Oriented x3 - Psychiatric Exam Psychiatric exam: Normal Affect, Normal Mood - Skin Skin Exam: Normal Color, Warm Assessment and Plan - Assessment and Plan (Free Text) Assessment: Pt is a 32 yo M admitted due to high grade SBO s/p exploratory laparotomy and repair of enterotomy and serosal tear, doing well POD #3. SBO s/p Explor Lap and Repair of Enterotomy and serosal tear POD#3 -Diet advanced to liquids -c/w Incentive spirometry, encouraged OOB/ambulation -pain management, afebrile -General Surgery consulted, recs appreciated -Abx DCed as per surgery recs -Abd series shows significant distended loops but patient had large BM after study and been passing gasss Newly Diagnosed DM type II - family h/o DM - Accuchecks 200s - A1C- 12.4 (08/14/18) - Levemir increased to 15 units HS starting tonight - Insulin sliding scale - Hypoglycemic protocol - Diabetic education referral Hypokalemia -Resolved Elevated BP -Likely HTN since patient is DM, was started on low dose Losartan yesterday -c/w Losartan 25mg QD -Monitor DVT ppx -Lovenox 40mg SC daily <Breanna Mesa - Last Filed: 08/19/18 12:48> Objective - Vital Signs/Intake and Output Vital Signs (last 24 hours): Temp Pulse Resp BP Pulse Ox 98.3 F 98 H 20 136/85 96 08/19/18 08:54 08/19/18 08:54 08/19/18 08:54 08/19/18 08:54 08/19/18 08:54 - Medications Medications: Current Medications Acetaminophen (Tylenol 650 Mg Supp) 650 mg DE Q6 PRN PRN Reason: Fever >100.4 F Last Admin: 08/15/18 10:46 Dose: 650 mg Dextrose (Dextrose 50% Inj) 0 ml IV STAT PRN; Protocol PRN Reason: Hypoglycemia Protocol Dextrose (Glutose 15) 0 gm PO ONCE PRN; Protocol PRN Reason: Hypoglycemia Protocol Enoxaparin Sodium (Lovenox) 40 mg SC DAILY [facility]; Protocol Last Admin: 08/19/18 08:11 Dose: 40 mg Glipizide (Glucotrol Xl) 5 mg PO K [facility] Last Admin: 08/19/18 08:12 Dose: 5 mg Glucagon (Glucagen Diagnostic Kit) 0 mg IM STAT PRN; Protocol PRN Reason: Hypoglycemia Protocol Hydromorphone HCl (Dilaudid) 1 mg IVP Q4 PRN PRN Reason: Pain, severe (8-10) Last Admin: 08/17/18 18:42 Dose: 1 mg Insulin Detemir (Levemir) 15 units SC [facility] Last Admin: 08/18/18 22:18 Dose: 15 u Insulin Human Lispro (Humalog) 0 units SC [facility]; Protocol Last Admin: 08/19/18 11:55 Dose: 2 units Losartan Potassium (Cozaar) 50 mg PO DAILY [facility] Last Admin: 08/19/18 08:12 Dose: 50 mg Morphine Sulfate (Morphine) 6 mg IVP Q4 PRN PRN Reason: Pain, moderate (4-7) Last Admin: 08/18/18 08:59 Dose: 6 mg Morphine Sulfate (Morphine) 4 mg IVP Q4 PRN PRN Reason: Pain, Mild (1-3) Last Admin: 08/18/18 21:09 Dose: 4 mg Ondansetron HCl (Zofran Inj) 4 mg IVP Q4 PRN PRN Reason: Nausea/Vomiting Last Admin: 08/19/18 06:20 Dose: 4 mg Pantoprazole Sodium (Protonix Inj) 40 mg IVP DAILY [facility] Last Admin: 08/19/18 08:13 Dose: 40 mg - Labs Labs: 08/19/18 05:50 08/19/18 05:50 PT 12.1 Seconds (9.8-13.1) 08/14/18 04:50 INR 1.1 08/14/18 04:50 APTT 34.1 Seconds (25.6-37.1) 08/14/18 04:50 Attending/Attestation - Attestation I have personally seen and examined this patient.: Yes I have fully participated in the care of the patient.: Yes I have reviewed all pertinent clinical information, including history, physical exam and plan: Yes Notes (Text): 08/19/18 12:47 agree with findings and plan as above pt stable, adv diet as per surgery
[2018-08-17 10:03] LABS: BANDS 6 % (0-2); BASOPHIL 2 % (0-2); EOSINOPHIL 3 % (0-7); LYMPHOCYTE 17 % (20-50); MONOCYTE 26 % (0-10); NEUTROPHIL 44 % (42-75); PLATELET ESTIMATE NORMAL (NORMAL); REACTIVE LYMPHOCYTES 2 % (0-0); TOTAL CELLS COUNTED 100
[2018-08-17 10:05] LABS: ANISOCYTOSIS SLIGHT; LARGE PLATELETS PRESENT; POIKILOCYTOSIS SLIGHT; SPHEROCYTES SLIGHT; STOMATOCYTES SLIGHT
[2018-08-17] MEDS: Enoxaparin 40 mg Syringe SC SCH (10:14)
[2018-08-17] MEDS: Insulin Detemir 100 Units/ml Inj SC SCH (22:47)
[2018-08-18] MEDS: Insulin Lispro (humaLOG) 100 Units/ml Inj SC SCH ×4 (06:56→22:15)
[2018-08-18 07:47] LABS: HEMOGLOBIN 13.9 g/dL (12.0-18.0); MEAN CELL VOLUME 94.8 fl (80.0-94.0); MEAN CORPUSCULAR HEMOGLOBIN 32.7 pg (27.0-31.0); MEAN CORPUSCULAR HGB CONC 34.5 g/dL (33.0-37.0); RBC 4.26 Mil/uL (4.40-5.90); RED CELL DISTRIBUTION WIDTH 12.7 % (11.5-14.5); WHITE BLOOD COUNT 5.4 K/uL (4.8-10.8)
[2018-08-18 07:59] LABS: BLOOD UREA NITROGEN 10 mg/dl (9-20); CALCIUM 9.4 mg/dL (8.4-10.2); GFR NON-AFRICAN AMERICAN > 60
[2018-08-18] MEDS: Enoxaparin 40 mg Syringe SC SCH (08:49)
[2018-08-18] MEDS: GlipiZIDE 5 mg SR Tab PO SCH (09:15)
--- NOTE | 2018-08-18 10:17 | CP.PCM.PN ---
<Belkis Pittman - Last Filed: 08/18/18 11:35> Subjective - Date & Time of Evaluation Date of Evaluation: 08/18/18 Time of Evaluation: 07:55 - Subjective Subjective: General Surgery: Pebbles Patient seen and examined this am at bedside. pt with one episode of vomiting overnight. Patient states pain is well controlled and endorses BM and flatus. denies nausea at this time. 12 point ROS otherwise negative Objective - Vital Signs/Intake and Output Vital Signs (last 24 hours): Temp Pulse Resp BP Pulse Ox 99.5 F 72 20 149/92 H 95 08/18/18 08:11 08/18/18 08:47 08/18/18 08:11 08/18/18 08:47 08/18/18 08:11 - Medications Medications: Current Medications Acetaminophen (Tylenol 650 Mg Supp) 650 mg DE Q6 PRN PRN Reason: Fever >100.4 F Last Admin: 08/15/18 10:46 Dose: 650 mg Dextrose (Dextrose 50% Inj) 0 ml IV STAT PRN; Protocol PRN Reason: Hypoglycemia Protocol Dextrose (Glutose 15) 0 gm PO ONCE PRN; Protocol PRN Reason: Hypoglycemia Protocol Enoxaparin Sodium (Lovenox) 40 mg SC DAILY [facility]; Protocol Last Admin: 08/18/18 08:49 Dose: 40 mg Glipizide (Glucotrol Xl) 5 mg PO BRK [facility] Last Admin: 08/18/18 09:15 Dose: 5 mg Glucagon (Glucagen Diagnostic Kit) 0 mg IM STAT PRN; Protocol PRN Reason: Hypoglycemia Protocol Hydromorphone HCl (Dilaudid) 1 mg IVP Q4 PRN PRN Reason: Pain, severe (8-10) Last Admin: 08/17/18 18:42 Dose: 1 mg Insulin Detemir (Levemir) 15 units SC HS [facility] Last Admin: 08/17/18 22:47 Dose: 15 u Insulin Human Lispro (Humalog) 0 units SC [facility]; Protocol Last Admin: 08/18/18 06:56 Dose: Not Given Losartan Potassium (Cozaar) 25 mg PO DAILY [facility] Last Admin: 08/18/18 08:47 Dose: 25 mg Morphine Sulfate (Morphine) 6 mg IVP Q4 PRN PRN Reason: Pain, moderate (4-7) Last Admin: 08/18/18 08:59 Dose: 6 mg Morphine Sulfate (Morphine) 4 mg IVP Q4 PRN PRN Reason: Pain, Mild (1-3) Last Admin: 08/17/18 23:00 Dose: 4 mg Ondansetron HCl (Zofran Inj) 4 mg IVP Q4 PRN PRN Reason: Nausea/Vomiting Last Admin: 08/17/18 18:59 Dose: 4 mg Pantoprazole Sodium (Protonix Inj) 40 mg IVP DAILY [facility] Last Admin: 08/18/18 08:50 Dose: 40 mg - Labs Labs: 08/18/18 06:00 08/18/18 06:00 PT 12.1 Seconds (9.8-13.1) 08/14/18 04:50 INR 1.1 08/14/18 04:50 APTT 34.1 Seconds (25.6-37.1) 08/14/18 04:50 - Constitutional Appears: Well, Non-toxic, No Acute Distress - Head Exam Head Exam: ATRAUMATIC, NORMOCEPHALIC - Eye Exam Eye Exam: EOMI - ENT Exam ENT Exam: Mucous Membranes Moist - Respiratory Exam Respiratory Exam: NORMAL BREATHING PATTERN - Cardiovascular Exam Cardiovascular Exam: REGULAR RHYTHM - GI/Abdominal Exam GI & Abdominal Exam: Distended (mild), Soft. absent: Tenderness, Rebound Additional comments: incision cdi with gee in place - Extremities Exam Extremities Exam: absent: Calf Tenderness, Pedal Edema - Neurological Exam Neurological Exam: Alert, Awake, Oriented x3 - Psychiatric Exam Psychiatric exam: Normal Affect, Normal Mood - Skin Skin Exam: Dry, Intact, Normal Color, Warm Additional comments: incision cdi with gee in place Assessment and Plan - Assessment and Plan (Free Text) Assessment: 32 M s/p diagnostic laparoscopy, exploratory laparotomy and repair of serosal tear/enterotomy, POD 4 for SBO Plan: - continue CLD, ADAT - monitor bowel function - pain control PRN - replete electrolytes PRN - f/u official ead of small bowel follow through - discussed with Dr. Pebbles Pittman, PGY 1 <Rachid Rogel - Last Filed: 08/18/18 17:39> Subjective - Date & Time of Evaluation Time of Evaluation: 17:00 - Subjective Subjective: Patient was seen and examined at the bedside. Agree with resident's note above. Reports some andria-incisional pain, passing flatus and having loose bowel movements. Objective - Vital Signs/Intake and Output Vital Signs (last 24 hours): Temp Pulse Resp BP Pulse Ox 99.5 F 103 H 18 134/87 97 08/18/18 08:11 08/18/18 17:00 08/18/18 17:00 08/18/18 17:00 08/18/18 17:00 - Medications Medications: Current Medications Acetaminophen (Tylenol 650 Mg Supp) 650 mg DE Q6 PRN PRN Reason: Fever >100.4 F Last Admin: 08/15/18 10:46 Dose: 650 mg Dextrose (Dextrose 50% Inj) 0 ml IV STAT PRN; Protocol PRN Reason: Hypoglycemia Protocol Dextrose (Glutose 15) 0 gm PO ONCE PRN; Protocol PRN Reason: Hypoglycemia Protocol Enoxaparin Sodium (Lovenox) 40 mg SC DAILY [facility]; Protocol Last Admin: 08/18/18 08:49 Dose: 40 mg Glipizide (Glucotrol Xl) 5 mg PO BRK [facility] Last Admin: 08/18/18 09:15 Dose: 5 mg Glucagon (Glucagen Diagnostic Kit) 0 mg IM STAT PRN; Protocol PRN Reason: Hypoglycemia Protocol Hydromorphone HCl (Dilaudid) 1 mg IVP Q4 PRN PRN Reason: Pain, severe (8-10) Last Admin: 08/17/18 18:42 Dose: 1 mg Insulin Detemir (Levemir) 15 units SC [facility] Last Admin: 08/17/18 22:47 Dose: 15 u Insulin Human Lispro (Humalog) 0 units SC [facility]; Protocol Last Admin: 08/18/18 16:50 Dose: Not Given Losartan Potassium (Cozaar) 50 mg PO DAILY [facility] Morphine Sulfate (Morphine) 6 mg IVP Q4 PRN PRN Reason: Pain, moderate (4-7) Last Admin: 08/18/18 08:59 Dose: 6 mg Morphine Sulfate (Morphine) 4 mg IVP Q4 PRN PRN Reason: Pain, Mild (1-3) Last Admin: 08/18/18 16:12 Dose: 4 mg Ondansetron HCl (Zofran Inj) 4 mg IVP Q4 PRN PRN Reason: Nausea/Vomiting Last Admin: 08/18/18 13:51 Dose: 4 mg Pantoprazole Sodium (Protonix Inj) 40 mg IVP DAILY [facility] Last Admin: 08/18/18 08:50 Dose: 40 mg - Labs Labs: 08/18/18 06:00 08/18/18 06:00 PT 12.1 Seconds (9.8-13.1) 08/14/18 04:50 INR 1.1 08/14/18 04:50 APTT 34.1 Seconds (25.6-37.1) 08/14/18 04:50 - GI/Abdominal Exam Additional comments: soft, NT, distended, BS+, no rebound, no guarding, incisions clean, no erythema, no drainage, gee in place Assessment and Plan - Assessment and Plan (Free Text) Plan: - repeat labs in am - Insentive spirometry - DVT ppx - will follow
[2018-08-18] MEDS: Potassium Chloride 20 mEq 100 ML IVPB SCH ×2 (12:58→16:03)
--- NOTE | 2018-08-18 16:01 | CP.PCM.PN ---
Subjective - Date & Time of Evaluation Date of Evaluation: 08/18/18 Time of Evaluation: 10:15 - Subjective Subjective: No fever tolerating Liquid diet abd still distended + Flatus + BM no CP no SOB Objective - Vital Signs/Intake and Output Vital Signs (last 24 hours): Temp Pulse Resp BP Pulse Ox 99.5 F 72 20 149/92 H 95 08/18/18 08:11 08/18/18 08:47 08/18/18 08:11 08/18/18 08:47 08/18/18 08:11 - Medications Medications: Current Medications Acetaminophen (Tylenol 650 Mg Supp) 650 mg ND Q6 PRN PRN Reason: Fever >100.4 F Last Admin: 08/15/18 10:46 Dose: 650 mg Dextrose (Dextrose 50% Inj) 0 ml IV STAT PRN; Protocol PRN Reason: Hypoglycemia Protocol Dextrose (Glutose 15) 0 gm PO ONCE PRN; Protocol PRN Reason: Hypoglycemia Protocol Enoxaparin Sodium (Lovenox) 40 mg SC DAILY [facility]; Protocol Last Admin: 08/18/18 08:49 Dose: 40 mg Glipizide (Glucotrol Xl) 5 mg PO BRK [facility] Last Admin: 08/18/18 09:15 Dose: 5 mg Glucagon (Glucagen Diagnostic Kit) 0 mg IM STAT PRN; Protocol PRN Reason: Hypoglycemia Protocol Hydromorphone HCl (Dilaudid) 1 mg IVP Q4 PRN PRN Reason: Pain, severe (8-10) Last Admin: 08/17/18 18:42 Dose: 1 mg Insulin Detemir (Levemir) 15 units SC HS [facility] Last Admin: 08/17/18 22:47 Dose: 15 u Insulin Human Lispro (Humalog) 0 units SC [facility]; Protocol Last Admin: 08/18/18 12:57 Dose: 2 units Losartan Potassium (Cozaar) 50 mg PO DAILY [facility] Morphine Sulfate (Morphine) 6 mg IVP Q4 PRN PRN Reason: Pain, moderate (4-7) Last Admin: 08/18/18 08:59 Dose: 6 mg Morphine Sulfate (Morphine) 4 mg IVP Q4 PRN PRN Reason: Pain, Mild (1-3) Last Admin: 08/17/18 23:00 Dose: 4 mg Ondansetron HCl (Zofran Inj) 4 mg IVP Q4 PRN PRN Reason: Nausea/Vomiting Last Admin: 08/18/18 13:51 Dose: 4 mg Pantoprazole Sodium (Protonix Inj) 40 mg IVP DAILY [facility] Last Admin: 08/18/18 08:50 Dose: 40 mg - Labs Labs: 08/18/18 06:00 08/18/18 06:00 PT 12.1 Seconds (9.8-13.1) 08/14/18 04:50 INR 1.1 08/14/18 04:50 APTT 34.1 Seconds (25.6-37.1) 08/14/18 04:50 - Constitutional Appears: No Acute Distress - Head Exam Head Exam: ATRAUMATIC, NORMAL INSPECTION, NORMOCEPHALIC - Eye Exam Eye Exam: EOMI, Normal appearance, PERRL Pupil Exam: NORMAL ACCOMODATION - ENT Exam ENT Exam: Mucous Membranes Moist, Normal External Ear Exam - Neck Exam Neck Exam: Full ROM. absent: Meningismus - Respiratory Exam Respiratory Exam: NORMAL BREATHING PATTERN. absent: Respiratory Distress - Cardiovascular Exam Cardiovascular Exam: REGULAR RHYTHM, +S1, +S2 - GI/Abdominal Exam GI & Abdominal Exam: Distended, Hypoactive Bowel Sounds - Extremities Exam Extremities Exam: Full ROM, Normal Capillary Refill. absent: Calf Tenderness - Back Exam Back Exam: Full ROM. absent: CVA tenderness (L), CVA tenderness (R) - Neurological Exam Neurological Exam: Alert, Awake, CN II-XII Intact, Normal Gait, Oriented x3 Neuro motor strength exam: Left Upper Extremity: 5, Right Upper Extremity: 5, Left Lower Extremity: 5, Right Lower Extremity: 5 - Psychiatric Exam Psychiatric exam: Normal Affect, Normal Mood - Skin Skin Exam: Dry, Normal Color, Warm Assessment and Plan - Assessment and Plan (Free Text) Plan: 1. SBO s/p Explor Lap and Repair of Enterotomy - + Flatus and BM -tolerating Liquid diet - abd still distended 2. Newly Diagnosed DM type II - cont Accucheck with coverage -cont low dose Levemir - start Glipizide - DM education 3. Sinus Tachycardia resolved 4. HTN - cont Losartan DVT Proph - Lovenox
[2018-08-18] MEDS: Insulin Detemir 100 Units/ml Inj SC SCH (22:18)
[2018-08-19 06:22] LABS: BASO % 0.1 % (0.0-2.0); EOS # 0.1 K/uL (0.0-0.7); EOS % 1.2 % (0.0-4.0); HEMOGLOBIN 13.8 g/dL (12.0-18.0); LYMPH # 0.6 K/uL (1.0-4.3); MEAN CELL VOLUME 93.9 fl (80.0-94.0); MEAN CORPUSCULAR HEMOGLOBIN 32.6 pg (27.0-31.0); MEAN CORPUSCULAR HGB CONC 34.7 g/dL (33.0-37.0); MEAN PLATELET VOLUME 8.5 fl (7.2-11.7); MONO # 1.4 K/uL (0.0-0.8); MONO % 22.8 % (0.0-10.0); NEUT # 4.2 K/uL (1.8-7.0); NEUT % 66.9 % (50.0-75.0); PLATELET COUNT 218 K/uL (130-400); RBC 4.22 Mil/uL (4.40-5.90); RED CELL DISTRIBUTION WIDTH 12.4 % (11.5-14.5); WHITE BLOOD COUNT 6.3 K/uL (4.8-10.8)
[2018-08-19 06:38] LABS: ALB/GLOB RATIO 1.2 (1.0-2.1); ALBUMIN 3.8 g/dL (3.5-5.0); ALT/SGPT 45 U/L (21-72); AST/SGOT 43 U/L (17-59); BLOOD UREA NITROGEN 12 mg/dl (9-20); CALCIUM 9.1 mg/dL (8.4-10.2); GFR NON-AFRICAN AMERICAN > 60
--- NOTE | 2018-08-19 07:39 | CP.PCM.PN ---
<Antonio Bustamante - Last Filed: 08/19/18 07:37> Subjective - Date & Time of Evaluation Date of Evaluation: 08/19/18 Time of Evaluation: 07:37 - Subjective Subjective: Surgery Progress note Patient seen and examined. Has some nausea, denies vomiting overnight. Tolerating CLD. + Flatus and BM this AM. abd pain improving. + OOB and ambulating. Denies fevers, chills, chest pain, shortness of breath Objective - Vital Signs/Intake and Output Vital Signs (last 24 hours): Temp Pulse Resp BP Pulse Ox 99.6 F 97 H 20 138/89 97 08/18/18 23:41 08/18/18 23:41 08/18/18 23:41 08/18/18 23:41 08/18/18 23:41 - Medications Medications: Current Medications Acetaminophen (Tylenol 650 Mg Supp) 650 mg CO Q6 PRN PRN Reason: Fever >100.4 F Last Admin: 08/15/18 10:46 Dose: 650 mg Dextrose (Dextrose 50% Inj) 0 ml IV STAT PRN; Protocol PRN Reason: Hypoglycemia Protocol Dextrose (Glutose 15) 0 gm PO ONCE PRN; Protocol PRN Reason: Hypoglycemia Protocol Enoxaparin Sodium (Lovenox) 40 mg SC DAILY [facility]; Protocol Last Admin: 08/18/18 08:49 Dose: 40 mg Glipizide (Glucotrol Xl) 5 mg PO BRK [facility] Last Admin: 08/18/18 09:15 Dose: 5 mg Glucagon (Glucagen Diagnostic Kit) 0 mg IM STAT PRN; Protocol PRN Reason: Hypoglycemia Protocol Hydromorphone HCl (Dilaudid) 1 mg IVP Q4 PRN PRN Reason: Pain, severe (8-10) Last Admin: 08/17/18 18:42 Dose: 1 mg Insulin Detemir (Levemir) 15 units SC HS [facility] Last Admin: 08/18/18 22:18 Dose: 15 u Insulin Human Lispro (Humalog) 0 units SC [facility]; Protocol Last Admin: 08/18/18 22:15 Dose: Not Given Losartan Potassium (Cozaar) 50 mg PO DAILY [facility] Morphine Sulfate (Morphine) 6 mg IVP Q4 PRN PRN Reason: Pain, moderate (4-7) Last Admin: 04/21/19 08:59 Dose: 6 mg Morphine Sulfate (Morphine) 4 mg IVP Q4 PRN PRN Reason: Pain, Mild (1-3) Last Admin: 08/18/18 21:09 Dose: 4 mg Ondansetron HCl (Zofran Inj) 4 mg IVP Q4 PRN PRN Reason: Nausea/Vomiting Last Admin: 08/19/18 06:20 Dose: 4 mg Pantoprazole Sodium (Protonix Inj) 40 mg IVP DAILY [facility] Last Admin: 08/18/18 08:50 Dose: 40 mg - Labs Labs: 08/19/18 05:50 08/19/18 05:50 PT 12.1 Seconds (9.8-13.1) 08/14/18 04:50 INR 1.1 08/14/18 04:50 APTT 34.1 Seconds (25.6-37.1) 08/14/18 04:50 - Constitutional Appears: Non-toxic, No Acute Distress - Head Exam Head Exam: ATRAUMATIC - Eye Exam Eye Exam: EOMI. absent: Scleral icterus - ENT Exam ENT Exam: Mucous Membranes Moist - Respiratory Exam Respiratory Exam: NORMAL BREATHING PATTERN. absent: Accessory Muscle Use, Respiratory Distress - Cardiovascular Exam Cardiovascular Exam: REGULAR RHYTHM. absent: Bradycardia, Tachycardia - GI/Abdominal Exam GI & Abdominal Exam: Soft, Tenderness (mildly tender around incision), Normal Bowel Sounds. absent: Distended, Firm, Guarding, Rigid Additional comments: incision C/D/I w/ no erythema or discharge. Mild ecchymosis around incision - Neurological Exam Neurological Exam: Alert, Awake, Oriented x3 - Psychiatric Exam Psychiatric exam: Normal Affect - Skin Skin Exam: Intact, Warm Assessment and Plan - Assessment and Plan (Free Text) Assessment: 32 M s/p diagnostic laparoscopy, exploratory laparotomy and repair of serosal tear/enterotomy, POD 5 for SBO Plan: - anti-emetic PRN - monitor bowel function - pain control PRN - replete electrolytes PRN - further recs per surgical attending PGy2 <Candido Somers - Last Filed: 08/19/18 08:59> Objective - Vital Signs/Intake and Output Vital Signs (last 24 hours): Temp Pulse Resp BP Pulse Ox 98.3 F 98 H 20 136/85 96 08/19/18 08:54 08/19/18 08:54 08/19/18 08:54 08/19/18 08:54 08/19/18 08:54 - Medications Medications: Current Medications Acetaminophen (Tylenol 650 Mg Supp) 650 mg CO Q6 PRN PRN Reason: Fever >100.4 F Last Admin: 08/15/18 10:46 Dose: 650 mg Dextrose (Dextrose 50% Inj) 0 ml IV STAT PRN; Protocol PRN Reason: Hypoglycemia Protocol Dextrose (Glutose 15) 0 gm PO ONCE PRN; Protocol PRN Reason: Hypoglycemia Protocol Enoxaparin Sodium (Lovenox) 40 mg SC DAILY [facility]; Protocol Last Admin: 08/19/18 08:11 Dose: 40 mg Glipizide (Glucotrol Xl) 5 mg PO BRK [facility] Last Admin: 08/19/18 08:12 Dose: 5 mg Glucagon (Glucagen Diagnostic Kit) 0 mg IM STAT PRN; Protocol PRN Reason: Hypoglycemia Protocol Hydromorphone HCl (Dilaudid) 1 mg IVP Q4 PRN PRN Reason: Pain, severe (8-10) Last Admin: 08/17/18 18:42 Dose: 1 mg Insulin Detemir (Levemir) 15 units SC [facility] Last Admin: 08/18/18 22:18 Dose: 15 u Insulin Human Lispro (Humalog) 0 units SC [facility]; Protocol Last Admin: 08/19/18 08:11 Dose: 2 units Losartan Potassium (Cozaar) 50 mg PO DAILY [facility] Last Admin: 08/19/18 08:12 Dose: 50 mg Morphine Sulfate (Morphine) 6 mg IVP Q4 PRN PRN Reason: Pain, moderate (4-7) Last Admin: 08/18/18 08:59 Dose: 6 mg Morphine Sulfate (Morphine) 4 mg IVP Q4 PRN PRN Reason: Pain, Mild (1-3) Last Admin: 08/18/18 21:09 Dose: 4 mg Ondansetron HCl (Zofran Inj) 4 mg IVP Q4 PRN PRN Reason: Nausea/Vomiting Last Admin: 08/19/18 06:20 Dose: 4 mg Pantoprazole Sodium (Protonix Inj) 40 mg IVP DAILY [facility] Last Admin: 08/19/18 08:13 Dose: 40 mg - Labs Labs: 08/19/18 05:50 08/19/18 05:50 PT 12.1 Seconds (9.8-13.1) 08/14/18 04:50 INR 1.1 08/14/18 04:50 APTT 34.1 Seconds (25.6-37.1) 08/14/18 04:50 Assessment and Plan - Assessment and Plan (Free Text) Plan: seen at bedside, no overnight events. Pt reports incisional pain well controlled, tolerating clear liquids. Denies any nausea or vomiting. +flatus and BM. gen: awake, alert, NAD abd: soft, distended, appropriate incisional tenderness, midline incision with gee in place c/d/i -prn pain control -advance to full liquid diet -f/u small bowel series results
[2018-08-19 08:05] LABS: BANDS 6 % (0-2); EOSINOPHIL 1 % (0-7); LYMPHOCYTE 5 % (20-50); MONOCYTE 20 % (0-10); NEUTROPHIL 68 % (42-75); PLATELET ESTIMATE NORMAL (NORMAL); TOTAL CELLS COUNTED 100
[2018-08-19 08:07] LABS: ANISOCYTOSIS SLIGHT
[2018-08-19 08:08] LABS: GIANT PLATELETS PRESENT; OVALOCYTES SLIGHT
[2018-08-19] MEDS: Insulin Lispro (humaLOG) 100 Units/ml Inj SC SCH ×4 (08:11→22:00)
[2018-08-19] MEDS: Enoxaparin 40 mg Syringe SC SCH (08:11)
[2018-08-19] MEDS: GlipiZIDE 5 mg SR Tab PO SCH (08:12)
--- NOTE | 2018-08-19 08:20 | CP.PCM.PN ---
<Hansa Hassan - Last Filed: 08/19/18 12:28> Subjective - Date & Time of Evaluation Date of Evaluation: 08/19/18 Time of Evaluation: 08:00 - Subjective Subjective: Voyce: [id number] Pt seen and examined at bedside POD #5, Pt reports abdominal pain controlled with medication. Pt has passed flatus, had a small bowel movement yesterday. Tolerating oral intake. Denies F/C/CP/SOB/N/V or dysuria. Objective - Vital Signs/Intake and Output Vital Signs (last 24 hours): Temp Pulse Resp BP Pulse Ox 99.6 F 97 H 20 138/89 97 08/18/18 23:41 08/18/18 23:41 08/18/18 23:41 08/18/18 23:41 08/18/18 23:41 - Medications Medications: Current Medications Acetaminophen (Tylenol 650 Mg Supp) 650 mg SC Q6 PRN PRN Reason: Fever >100.4 F Last Admin: 08/15/18 10:46 Dose: 650 mg Dextrose (Dextrose 50% Inj) 0 ml IV STAT PRN; Protocol PRN Reason: Hypoglycemia Protocol Dextrose (Glutose 15) 0 gm PO ONCE PRN; Protocol PRN Reason: Hypoglycemia Protocol Enoxaparin Sodium (Lovenox) 40 mg SC DAILY [facility]; Protocol Last Admin: 08/19/18 08:11 Dose: 40 mg Glipizide (Glucotrol Xl) 5 mg PO BRK [facility] Last Admin: 08/19/18 08:12 Dose: 5 mg Glucagon (Glucagen Diagnostic Kit) 0 mg IM STAT PRN; Protocol PRN Reason: Hypoglycemia Protocol Hydromorphone HCl (Dilaudid) 1 mg IVP Q4 PRN PRN Reason: Pain, severe (8-10) Last Admin: 08/17/18 18:42 Dose: 1 mg Insulin Detemir (Levemir) 15 units SC HS [facility] Last Admin: 08/18/18 22:18 Dose: 15 u Insulin Human Lispro (Humalog) 0 units SC ACHS [facility]; Protocol Last Admin: 08/19/18 08:11 Dose: 2 units Losartan Potassium (Cozaar) 50 mg PO DAILY [facility] Last Admin: 08/19/18 08:12 Dose: 50 mg Morphine Sulfate (Morphine) 6 mg IVP Q4 PRN PRN Reason: Pain, moderate (4-7) Last Admin: 08/18/18 08:59 Dose: 6 mg Morphine Sulfate (Morphine) 4 mg IVP Q4 PRN PRN Reason: Pain, Mild (1-3) Last Admin: 08/18/18 21:09 Dose: 4 mg Ondansetron HCl (Zofran Inj) 4 mg IVP Q4 PRN PRN Reason: Nausea/Vomiting Last Admin: 08/19/18 06:20 Dose: 4 mg Pantoprazole Sodium (Protonix Inj) 40 mg IVP DAILY [facility] Last Admin: 08/19/18 08:13 Dose: 40 mg - Labs Labs: 08/19/18 05:50 08/19/18 05:50 PT 12.1 Seconds (9.8-13.1) 08/14/18 04:50 INR 1.1 08/14/18 04:50 APTT 34.1 Seconds (25.6-37.1) 08/14/18 04:50 - Constitutional Appears: Non-toxic, No Acute Distress - Head Exam Head Exam: NORMAL INSPECTION - Eye Exam Eye Exam: EOMI - ENT Exam ENT Exam: Mucous Membranes Moist - Respiratory Exam Respiratory Exam: Clear to Ausculation Bilateral. absent: Rales, Rhonchi, Wheezes - Cardiovascular Exam Cardiovascular Exam: RRR, +S1, +S2 - GI/Abdominal Exam GI & Abdominal Exam: Distended, Soft, Diminished Bowel Sounds Additional comments: Vertical incision gee, dried blood noted, intact. 2 laparoscopic incisions noted intact with gee - Extremities Exam Extremities Exam: Normal Inspection - Neurological Exam Neurological Exam: Alert, Awake, Oriented x3 Assessment and Plan - Assessment and Plan (Free Text) Assessment: Pt is a 32 yo M admitted due to high grade SBO s/p exploratory laparotomy and repair of enterotomy and serosal tear, doing well POD #5. Plan: SBO s/p Explor Lap and Repair of Enterotomy and serosal tear POD#5 - Abd CT: Evidence of high grade small bowel obstruction. - + Flatus and + BM, abdomen distended - Surgery advanced to full liquids- monitor if tolerates - GI series done-pending final read-called radiology - c/w Incentive spirometry - pain management, afebrile - General Surgery consulted, recs appreciated - Zosyn 3.37gm - received 1 dose- discontinued by surgery - F/u CBC, BMP, small bowel series in AM Newly Diagnosed DM type II - family h/o DM, POC 80 - HGA1C- 12.4 (08/14/18) - Levemir 15units QHS, Glipizide 5mg PO - Insulin sliding scale - Accucheck - Hypoglycemic protocol - Diabteic education referral Sinus Tachycardia, resolved -HR 98 -c/w cozaar 50mg QD -continue to monitor Hepatic steatosis, Hyperbilirubinemia, Transaminitis-resolved - RUQ US: No evidence of cholelithiasis or acute cholecystitis. Hepatomegaly with hepatic steatosis - AST/ALT: 43/45 - TB: 1.5, D bili 0.4 - f/u BMP in AM Diet - Full liquids DVT ppx -Lovenox 40mg SC daily <Breanna Mesa - Last Filed: 08/19/18 13:15> Objective - Vital Signs/Intake and Output Vital Signs (last 24 hours): Temp Pulse Resp BP Pulse Ox 98.3 F 98 H 20 136/85 96 08/19/18 08:54 08/19/18 08:54 08/19/18 08:54 08/19/18 08:54 08/19/18 08:54 - Medications Medications: Current Medications Acetaminophen (Tylenol 650 Mg Supp) 650 mg SC Q6 PRN PRN Reason: Fever >100.4 F Last Admin: 08/15/18 10:46 Dose: 650 mg Dextrose (Dextrose 50% Inj) 0 ml IV STAT PRN; Protocol PRN Reason: Hypoglycemia Protocol Dextrose (Glutose 15) 0 gm PO ONCE PRN; Protocol PRN Reason: Hypoglycemia Protocol Enoxaparin Sodium (Lovenox) 40 mg SC DAILY [facility]; Protocol Last Admin: 08/19/18 08:11 Dose: 40 mg Glipizide (Glucotrol Xl) 5 mg PO BRK [facility] Last Admin: 08/19/18 08:12 Dose: 5 mg Glucagon (Glucagen Diagnostic Kit) 0 mg IM STAT PRN; Protocol PRN Reason: Hypoglycemia Protocol Hydromorphone HCl (Dilaudid) 1 mg IVP Q4 PRN PRN Reason: Pain, severe (8-10) Last Admin: 08/17/18 18:42 Dose: 1 mg Insulin Detemir (Levemir) 15 units SC HS [facility] Last Admin: 08/18/18 22:18 Dose: 15 u Insulin Human Lispro (Humalog) 0 units SC ACHS [facility]; Protocol Last Admin: 08/19/18 11:55 Dose: 2 units Losartan Potassium (Cozaar) 50 mg PO DAILY [facility] Last Admin: 08/19/18 08:12 Dose: 50 mg Morphine Sulfate (Morphine) 6 mg IVP Q4 PRN PRN Reason: Pain, moderate (4-7) Last Admin: 08/18/18 08:59 Dose: 6 mg Morphine Sulfate (Morphine) 4 mg IVP Q4 PRN PRN Reason: Pain, Mild (1-3) Last Admin: 08/18/18 21:09 Dose: 4 mg Ondansetron HCl (Zofran Inj) 4 mg IVP Q4 PRN PRN Reason: Nausea/Vomiting Last Admin: 08/19/18 06:20 Dose: 4 mg Pantoprazole Sodium (Protonix Inj) 40 mg IVP DAILY [facility] Last Admin: 08/19/18 08:13 Dose: 40 mg - Labs Labs: 08/19/18 05:50 08/19/18 05:50 PT 12.1 Seconds (9.8-13.1) 08/14/18 04:50 INR 1.1 08/14/18 04:50 APTT 34.1 Seconds (25.6-37.1) 08/14/18 04:50 Attending/Attestation - Attestation I have personally seen and examined this patient.: Yes I have fully participated in the care of the patient.: Yes I have reviewed all pertinent clinical information, including history, physical exam and plan: Yes Notes (Text): Agree with findings and plan as above. Close monitoring per surgery, recommendations on diet adv appreciated and followed.
[2018-08-19] MEDS: Insulin Detemir 100 Units/ml Inj SC SCH (21:49)
[2018-08-20 06:16] LABS: BASO % 0.4 % (0.0-2.0); EOS # 0.2 K/uL (0.0-0.7); EOS % 1.8 % (0.0-4.0); HEMOGLOBIN 14.1 g/dL (12.0-18.0); LYMPH # 0.9 K/uL (1.0-4.3); LYMPH % 9.3 % (20.0-40.0); MEAN CORPUSCULAR HEMOGLOBIN 32.6 pg (27.0-31.0); MEAN CORPUSCULAR HGB CONC 34.7 g/dL (33.0-37.0); MEAN PLATELET VOLUME 8.4 fl (7.2-11.7); MONO # 2.5 K/uL (0.0-0.8); MONO % 26.5 % (0.0-10.0); NRBC % 0.1 % (0.0-0.0); RBC 4.32 Mil/uL (4.40-5.90); RED CELL DISTRIBUTION WIDTH 12.7 % (11.5-14.5)
[2018-08-20 06:31] LABS: BLOOD UREA NITROGEN 12 mg/dl (9-20); CALCIUM 8.9 mg/dL (8.4-10.2); GFR NON-AFRICAN AMERICAN > 60
[2018-08-20 06:36] LABS: WHITE BLOOD COUNT 9.6 K/uL (4.8-10.8)
[2018-08-20] MEDS: Insulin Lispro (humaLOG) 100 Units/ml Inj SC SCH ×4 (06:48→22:17)
--- NOTE | 2018-08-20 08:33 | CP.PCM.PN ---
Subjective - Date & Time of Evaluation Date of Evaluation: 08/20/18 Time of Evaluation: 08:32 - Subjective Subjective: Surgery Progress Note: Dr. Solis 32 year old male patient seen and examined this AM. Patient resting comfortably, no acute events overnight. + BM, + flatus overnight. Patient reports improvement in abdominal pain this morning. Tolerating CLD. Denies nausea/vomiting/fever/chills. Objective - Vital Signs/Intake and Output Vital Signs (last 24 hours): Temp Pulse Resp BP Pulse Ox 98.5 F 97 H 18 124/80 96 08/19/18 23:47 08/19/18 23:47 08/19/18 23:47 08/19/18 23:47 08/19/18 23:47 - Medications Medications: Current Medications Acetaminophen (Tylenol 650 Mg Supp) 650 mg [place] Q6 PRN PRN Reason: Fever >100.4 F Last Admin: 08/15/18 10:46 Dose: 650 mg Dextrose (Dextrose 50% Inj) 0 ml IV STAT PRN; Protocol PRN Reason: Hypoglycemia Protocol Dextrose (Glutose 15) 0 gm PO ONCE PRN; Protocol PRN Reason: Hypoglycemia Protocol Enoxaparin Sodium (Lovenox) 40 mg SC DAILY [facility]; Protocol Last Admin: 08/19/18 08:11 Dose: 40 mg Glipizide (Glucotrol Xl) 5 mg PO BRK [facility] Last Admin: 08/19/18 08:12 Dose: 5 mg Glucagon (Glucagen Diagnostic Kit) 0 mg IM STAT PRN; Protocol PRN Reason: Hypoglycemia Protocol Hydromorphone HCl (Dilaudid) 1 mg IVP Q4 PRN PRN Reason: Pain, severe (8-10) Last Admin: 08/17/18 18:42 Dose: 1 mg Insulin Detemir (Levemir) 15 units SC HS [facility] Last Admin: 08/19/18 21:49 Dose: 15 units Insulin Human Lispro (Humalog) 0 units SC [facility]; Protocol Last Admin: 08/20/18 06:48 Dose: Not Given Losartan Potassium (Cozaar) 50 mg PO DAILY [facility] Last Admin: 08/19/18 08:12 Dose: 50 mg Morphine Sulfate (Morphine) 6 mg IVP Q4 PRN PRN Reason: Pain, moderate (4-7) Last Admin: 08/18/18 08:59 Dose: 6 mg Morphine Sulfate (Morphine) 4 mg IVP Q4 PRN PRN Reason: Pain, Mild (1-3) Last Admin: 08/19/18 18:45 Dose: 4 mg Ondansetron HCl (Zofran Inj) 4 mg IVP Q4 PRN PRN Reason: Nausea/Vomiting Last Admin: 08/19/18 06:20 Dose: 4 mg Pantoprazole Sodium (Protonix Inj) 40 mg IVP DAILY [facility] Last Admin: 08/19/18 08:13 Dose: 40 mg - Labs Labs: 08/20/18 06:05 08/20/18 06:05 PT 12.1 Seconds (9.8-13.1) 08/14/18 04:50 INR 1.1 08/14/18 04:50 APTT 34.1 Seconds (25.6-37.1) 08/14/18 04:50 - Constitutional Appears: Non-toxic, No Acute Distress - Head Exam Head Exam: ATRAUMATIC, NORMOCEPHALIC - Eye Exam Eye Exam: Normal appearance - ENT Exam ENT Exam: Mucous Membranes Moist - Respiratory Exam Respiratory Exam: Clear to Ausculation Bilateral - Cardiovascular Exam Cardiovascular Exam: REGULAR RHYTHM - GI/Abdominal Exam GI & Abdominal Exam: Soft, Tenderness, Normal Bowel Sounds Additional comments: Surgical incision skin well coapted, no evidence of dehiscence, no drainage Mild ecchymosis localized to incision site, no erythema appreciated Mild tenderness to surgical site appreciated - Extremities Exam Extremities Exam: Normal Capillary Refill. absent: Calf Tenderness - Back Exam Back Exam: NORMAL INSPECTION - Neurological Exam Neurological Exam: Alert, Awake, Oriented x3 - Psychiatric Exam Psychiatric exam: Normal Affect, Normal Mood - Skin Skin Exam: Warm Assessment and Plan - Assessment and Plan (Free Text) Assessment: 32 year old male s/p diagnostic laparoscopy, exploratory laparotomy and repair of serosal tear/enterotomy, POD 6 for SBO Plan: - Zofran PRN - Pain control - Replete electrolytes PRN - Further recs per Dr. Will Cade PGY1
[2018-08-20] MEDS: GlipiZIDE 5 mg SR Tab PO SCH (08:51)
[2018-08-20] MEDS: Enoxaparin 40 mg Syringe SC SCH (09:50)
--- NOTE | 2018-08-20 11:18 | CP.PCM.PN ---
<Hansa Hassan - Last Filed: 08/20/18 12:48> Subjective - Date & Time of Evaluation Date of Evaluation: 08/20/18 Time of Evaluation: 12:48 - Subjective Subjective: Voyce: [id number] Pt seen and examined at bedside POD #6, Pt reports abdominal pain controlled with medication. Pt passing flatus, had 2 episodes of diarrhea yesterday. Tolerating oral intake. Denies F/C/CP/SOB/N/V or dysuria. Objective - Vital Signs/Intake and Output Vital Signs (last 24 hours): Temp Pulse Resp BP Pulse Ox 99.0 F 85 18 122/74 96 08/20/18 08:59 08/20/18 09:50 08/20/18 08:59 08/20/18 09:50 08/20/18 08:59 - Medications Medications: Current Medications Acetaminophen (Tylenol 650 Mg Supp) 650 mg [place] Q6 PRN PRN Reason: Fever >100.4 F Last Admin: 08/15/18 10:46 Dose: 650 mg Dextrose (Dextrose 50% Inj) 0 ml IV STAT PRN; Protocol PRN Reason: Hypoglycemia Protocol Dextrose (Glutose 15) 0 gm PO ONCE PRN; Protocol PRN Reason: Hypoglycemia Protocol Enoxaparin Sodium (Lovenox) 40 mg SC DAILY [facility]; Protocol Last Admin: 08/20/18 09:50 Dose: 40 mg Glipizide (Glucotrol Xl) 5 mg PO BRK [facility] Last Admin: 08/20/18 08:51 Dose: 5 mg Glucagon (Glucagen Diagnostic Kit) 0 mg IM STAT PRN; Protocol PRN Reason: Hypoglycemia Protocol Hydromorphone HCl (Dilaudid) 1 mg IVP Q4 PRN PRN Reason: Pain, severe (8-10) Last Admin: 08/17/18 18:42 Dose: 1 mg Insulin Detemir (Levemir) 15 units SC HS [facility] Last Admin: 08/19/18 21:49 Dose: 15 units Insulin Human Lispro (Humalog) 0 units SC ACHS [facility]; Protocol Last Admin: 08/20/18 06:48 Dose: Not Given Losartan Potassium (Cozaar) 50 mg PO DAILY [facility] Last Admin: 08/20/18 09:50 Dose: 50 mg Morphine Sulfate (Morphine) 6 mg IVP Q4 PRN PRN Reason: Pain, moderate (4-7) Last Admin: 08/20/18 09:47 Dose: 6 mg Morphine Sulfate (Morphine) 4 mg IVP Q4 PRN PRN Reason: Pain, Mild (1-3) Last Admin: 08/19/18 18:45 Dose: 4 mg Ondansetron HCl (Zofran Inj) 4 mg IVP Q4 PRN PRN Reason: Nausea/Vomiting Last Admin: 08/19/18 06:20 Dose: 4 mg Pantoprazole Sodium (Protonix Inj) 40 mg IVP DAILY [facility] Last Admin: 08/20/18 09:51 Dose: 40 mg - Labs Labs: 08/20/18 06:05 08/20/18 06:05 PT 12.1 Seconds (9.8-13.1) 08/14/18 04:50 INR 1.1 08/14/18 04:50 APTT 34.1 Seconds (25.6-37.1) 08/14/18 04:50 - Constitutional Appears: Non-toxic, No Acute Distress - Eye Exam Eye Exam: Scleral icterus - ENT Exam ENT Exam: Mucous Membranes Moist - Respiratory Exam Respiratory Exam: Clear to Ausculation Bilateral. absent: Rales, Rhonchi, Wheezes - Cardiovascular Exam Cardiovascular Exam: RRR, +S1, +S2 - GI/Abdominal Exam GI & Abdominal Exam: Distended, Soft, Tenderness (appropriate post surgical), Normal Bowel Sounds. absent: Guarding, Rigid, Rebound Additional comments: Vertical incision gee, dried blood noted, intact. 2 laparoscopic incisions noted intact with gee - Extremities Exam Extremities Exam: Normal Inspection Assessment and Plan - Assessment and Plan (Free Text) Assessment: Pt is a 32 yo M admitted due to high grade SBO s/p exploratory laparotomy and repair of enterotomy and serosal tear, doing well POD #6. Plan: SBO s/p Explor Lap and Repair of Enterotomy and serosal tear POD#6 - Abd CT: Evidence of high grade small bowel obstruction. - + Flatus and + BM - General Surgery consulted, recs appreciated - Surgery advanced to full liquids-tolerating well - GI series done-pending final read - KUB- consistant with SBO - no free air mentioned - c/w Incentive spirometry - pain management, afebrile - Zosyn 3.37gm - received 1 dose - F/u CBC, BMP, small bowel series in AM Bandemia acute -CBC showed 6 bands, WBC 9.6, afebrile -Zosyn 3.37gm - received 1 dose -Surg on consult- f/u reccs for any antibiotics -CBC in AM Newly Diagnosed DM type II - family h/o DM, POC 180 - HGA1C- 12.4 (08/14/18) - Levemir 15units QHS, Glipizide 5mg PO - Insulin sliding scale - Accucheck - Hypoglycemic protocol - Diabetic education referral Sinus Tachycardia, resolved -HR 85 -c/w cozaar 50mg QD -continue to monitor Hepatic steatosis, Hyperbilirubinemia, Transaminitis-resolved - RUQ US: No evidence of cholelithiasis or acute cholecystitis. Hepatomegaly with hepatic steatosis - AST/ALT: 43/45, TB: 1.5, D bili 0.4 (08/19/18 - F/u BMP in AM Diet - Full liquids DVT ppx -Lovenox 40mg SC daily <Candido Somers - Last Filed: 08/20/18 17:17> Objective - Vital Signs/Intake and Output Vital Signs (last 24 hours): Temp Pulse Resp BP Pulse Ox 98.2 F 90 18 123/73 96 08/20/18 16:18 08/20/18 16:18 08/20/18 16:18 08/20/18 16:18 08/20/18 16:18 - Medications Medications: Current Medications Acetaminophen (Tylenol 650 Mg Supp) 650 mg [place] Q6 PRN PRN Reason: Fever >100.4 F Last Admin: 08/15/18 10:46 Dose: 650 mg Dextrose (Dextrose 50% Inj) 0 ml IV STAT PRN; Protocol PRN Reason: Hypoglycemia Protocol Dextrose (Glutose 15) 0 gm PO ONCE PRN; Protocol PRN Reason: Hypoglycemia Protocol Enoxaparin Sodium (Lovenox) 40 mg SC DAILY [facility]; Protocol Last Admin: 08/20/18 09:50 Dose: 40 mg Glipizide (Glucotrol Xl) 5 mg PO BRK [facility] Last Admin: 08/20/18 08:51 Dose: 5 mg Glucagon (Glucagen Diagnostic Kit) 0 mg IM STAT PRN; Protocol PRN Reason: Hypoglycemia Protocol Hydromorphone HCl (Dilaudid) 1 mg IVP Q4 PRN PRN Reason: Pain, severe (8-10) Last Admin: 08/17/18 18:42 Dose: 1 mg Insulin Detemir (Levemir) 15 units SC [facility] Last Admin: 08/19/18 21:49 Dose: 15 units Insulin Human Lispro (Humalog) 0 units SC ACHS [facility]; Protocol Last Admin: 08/20/18 16:58 Dose: 3 units Losartan Potassium (Cozaar) 50 mg PO DAILY [facility] Last Admin: 08/20/18 09:50 Dose: 50 mg Morphine Sulfate (Morphine) 6 mg IVP Q4 PRN PRN Reason: Pain, moderate (4-7) Last Admin: 08/20/18 15:47 Dose: 6 mg Morphine Sulfate (Morphine) 4 mg IVP Q4 PRN PRN Reason: Pain, Mild (1-3) Last Admin: 08/19/18 18:45 Dose: 4 mg Ondansetron HCl (Zofran Inj) 4 mg IVP Q4 PRN PRN Reason: Nausea/Vomiting Last Admin: 08/19/18 06:20 Dose: 4 mg Pantoprazole Sodium (Protonix Inj) 40 mg IVP DAILY [facility] Last Admin: 08/20/18 09:51 Dose: 40 mg - Labs Labs: 08/20/18 06:05 08/20/18 06:05 PT 12.1 Seconds (9.8-13.1) 08/14/18 04:50 INR 1.1 08/14/18 04:50 APTT 34.1 Seconds (25.6-37.1) 08/14/18 04:50 Assessment and Plan - Assessment and Plan (Free Text) Plan: seen at bedside, patient had 3 episodes of vomiting yesterday but none today. Pt reports passing flatus and having watery BMs. Minimal incisional discomcort. Currently no nausea or vomiting. gen: awake, alert, NAD abd: soft, distended but improving, no rebound or guarding, incision healing well. a/p prn pain control cont liquid diet will likely advance in am in no further vomiting ambulation <Breanna Mesa - Last Filed: 08/23/18 20:53> Objective - Vital Signs/Intake and Output Vital Signs (last 24 hours): Temp Pulse Resp BP Pulse Ox 98.1 F 77 20 115/66 99 08/22/18 09:00 08/22/18 09:00 08/22/18 09:00 08/22/18 09:00 08/22/18 09:00 - Labs Labs: 08/22/18 06:12 08/22/18 06:12 PT 12.1 Seconds (9.8-13.1) 08/14/18 04:50 INR 1.1 08/14/18 04:50 APTT 34.1 Seconds (25.6-37.1) 08/14/18 04:50 Attending/Attestation - Attestation I have personally seen and examined this patient.: Yes I have fully participated in the care of the patient.: Yes I have reviewed all pertinent clinical information, including history, physical exam and plan: Yes Notes (Text): agree with findings and plan as above.
--- NOTE | 2018-08-20 11:50 | RAD ---
Date of service: 08/20/2018 HISTORY: s/p ex lap COMPARISON: None available. TECHNIQUE: 1 view obtained. FINDINGS: BOWEL: Multiple dilated small bowel loops filled with oral contrast material. There is a small amount of oral contrast seen within a nondistended large bowel. Findings concerning for partial mechanical bowel obstruction. Midline surgical gee are noted. BONES: Normal. OTHER FINDINGS: None. IMPRESSION: Probable partial mechanical small-bowel obstruction.
--- NOTE | 2018-08-20 17:38 | RAD ---
Date of service: 08/16/2018 PROCEDURE: Small-bowel series HISTORY: SBO s/p Ex-LAP COMPARISON: Comparison made with prior CT scan abdomen pelvis 08/14/2018. TECHNIQUE: Single contrast small bowel series performed. Multiple overhead radiographic images were performed at interval with delayed imaging obtained out to 14 hr. FINDINGS: [employer] film of the abdomen demonstrates surgical skin closure gee over the mid to lower abdomen. Multiple distended air-filled loops of small bowel are present. There is some residual oral contrast material outlining numerous diverticula along the right colon. There opacification of the rectosigmoid as well. Delayed imaging following ingestion of oral contrast material demonstrates multiple distended loops of small bowel in the mid and left abdomen. Findings likely represent may represent partial small bowel obstruction however transition point not positively identified IMPRESSION: Findings most consistent with partial small bowel obstruction.
[2018-08-20] MEDS: Insulin Detemir 100 Units/ml Inj SC SCH (22:17)
[2018-08-21] MEDS: Insulin Lispro (humaLOG) 100 Units/ml Inj SC SCH ×4 (06:30→23:00)
[2018-08-21 06:49] LABS: BASO # 0.1 K/uL (0.0-0.2); BASO % 0.7 % (0.0-2.0); EOS # 0.9 K/uL (0.0-0.7); EOS % 8.4 % (0.0-4.0); LYMPH # 1.8 K/uL (1.0-4.3); LYMPH % 16.1 % (20.0-40.0); MEAN CELL VOLUME 87.9 fl (80.0-94.0); MEAN CORPUSCULAR HEMOGLOBIN 29.5 pg (27.0-31.0); MEAN CORPUSCULAR HGB CONC 33.6 g/dL (33.0-37.0); MEAN PLATELET VOLUME 10.5 fl (7.2-11.7); MONO # 0.8 K/uL (0.0-0.8); MONO % 7.2 % (0.0-10.0); NEUT # 7.4 K/uL (1.8-7.0); NEUT % 67.6 % (50.0-75.0); RBC 4.74 Mil/uL (4.40-5.90); RED CELL DISTRIBUTION WIDTH 13.8 % (11.5-14.5); WHITE BLOOD COUNT 10.9 K/uL (4.8-10.8)
[2018-08-21 07:07] LABS: BLOOD UREA NITROGEN 9 mg/dl (9-20); CALCIUM 8.6 mg/dL (8.4-10.2); GFR NON-AFRICAN AMERICAN > 60
[2018-08-21] MEDS: GlipiZIDE 5 mg SR Tab PO SCH (08:10)
[2018-08-21] MEDS ORDERED: Hydrogen Peroxide 3% Soln (480ml) TP ONE (08:56)
[2018-08-21] MEDS: Enoxaparin 40 mg Syringe SC SCH (09:39)
[2018-08-21] MEDS ORDERED: Oxycodone/Acetaminophen 5/325 mg Tab PO PRN (10:43)
--- NOTE | 2018-08-21 10:44 | CP.PCM.PN ---
<Hansa Hassan - Last Filed: 08/21/18 14:08> Subjective - Date & Time of Evaluation Date of Evaluation: 08/21/18 Time of Evaluation: 08:00 - Subjective Subjective: Pt seen and examined at bedside POD #7, Pt reports abdominal pain controlled with medication. Pt passing flatus, had 6 episodes of diarrhea yesterday, less bloated. Tolerating oral intake. Denies F/C/CP/SOB/N/V or dysuria. Objective - Vital Signs/Intake and Output Vital Signs (last 24 hours): Temp Pulse Resp BP Pulse Ox 97.8 F 74 20 114/72 98 08/21/18 08:08 08/21/18 09:40 08/21/18 08:08 08/21/18 09:40 08/21/18 08:08 - Medications Medications: Current Medications Acetaminophen (Tylenol 650 Mg Supp) 650 mg [place] Q6 PRN PRN Reason: Fever >100.4 F Last Admin: 08/15/18 10:46 Dose: 650 mg Dextrose (Dextrose 50% Inj) 0 ml IV STAT PRN; Protocol PRN Reason: Hypoglycemia Protocol Dextrose (Glutose 15) 0 gm PO ONCE PRN; Protocol PRN Reason: Hypoglycemia Protocol Enoxaparin Sodium (Lovenox) 40 mg SC DAILY [facility]; Protocol Last Admin: 08/21/18 09:39 Dose: 40 mg Glipizide (Glucotrol Xl) 5 mg PO BRK [facility] Last Admin: 08/21/18 08:10 Dose: 5 mg Glucagon (Glucagen Diagnostic Kit) 0 mg IM STAT PRN; Protocol PRN Reason: Hypoglycemia Protocol Insulin Detemir (Levemir) 15 units SC HS [facility] Last Admin: 08/20/18 22:17 Dose: 15 units Insulin Human Lispro (Humalog) 0 units SC ACHS [facility]; Protocol Last Admin: 08/21/18 06:30 Dose: Not Given Losartan Potassium (Cozaar) 50 mg PO DAILY [facility] Last Admin: 08/21/18 09:40 Dose: 50 mg Ondansetron HCl (Zofran Inj) 4 mg IVP Q4 PRN PRN Reason: Nausea/Vomiting Last Admin: 08/19/18 06:20 Dose: 4 mg Pantoprazole Sodium (Protonix Inj) 40 mg IVP DAILY [facility] Last Admin: 08/21/18 09:41 Dose: 40 mg - Labs Labs: 08/21/18 05:30 08/21/18 05:18 PT 12.1 Seconds (9.8-13.1) 08/14/18 04:50 INR 1.1 08/14/18 04:50 APTT 34.1 Seconds (25.6-37.1) 08/14/18 04:50 - Constitutional Appears: Non-toxic, No Acute Distress - Eye Exam Eye Exam: EOMI - ENT Exam ENT Exam: Mucous Membranes Moist - Respiratory Exam Respiratory Exam: Clear to Ausculation Bilateral. absent: Rales, Rhonchi, Wheezes - Cardiovascular Exam Cardiovascular Exam: RRR, +S1, +S2 - GI/Abdominal Exam GI & Abdominal Exam: Distended (less ), Soft, Tenderness (appropriate post surgical), Normal Bowel Sounds. absent: Guarding, Rigid, Rebound Additional comments: Vertical incision gee, dried blood noted, intact. 2 laparoscopic incisions noted intact with gee - Extremities Exam Extremities Exam: Normal Inspection Assessment and Plan - Assessment and Plan (Free Text) Assessment: Pt is a 32 yo M admitted due to high grade SBO s/p exploratory laparotomy and repair of enterotomy and serosal tear, doing well POD #7. Plan: SBO s/p Explor Lap and Repair of Enterotomy and serosal tear POD#7 - Abd CT: Evidence of high grade small bowel obstruction. - + Flatus and + BM - General Surgery consulted, recs appreciated - Surgery advanced to moderate consistent bland diet - GI series done-mechanical SBO - KUB- consistent with SBO - no free air mentioned - c/w Incentive spirometry - pain management, afebrile - Zosyn 3.37gm - received 1 dose - F/u CBC, BMP, in AM Leukocytosis, Bandemia acute -CBC showed 6 bands (08/19/18), WBC 10.6, afebrile -Zosyn 3.37gm - received 1 dose -Surg on consult- reccs appreciated -CBC in AM Newly Diagnosed DM type II - family h/o DM, POC 180 - HGA1C- 12.4 (08/14/18) - Levemir 15units QHS, Glipizide 5mg PO - Insulin sliding scale - Accucheck - Hypoglycemic protocol - Diabetic education referral- reccs appreciated - Pt can be started on Metformin and Glipizide if tolerating diet advancement Sinus Tachycardia, resolved -HR 74 -c/w cozaar 50mg QD -continue to monitor Hepatic steatosis, Hyperbilirubinemia, Transaminitis-resolved - RUQ US: No evidence of cholelithiasis or acute cholecystitis. Hepatomegaly with hepatic steatosis - AST/ALT: 43/45, TB: 1.5, D bili 0.4 (08/19/18 - F/u BMP in AM Diet -advanced to moderate consistent bland DVT ppx -Lovenox 40mg SC daily <Thea Loyd - Last Filed: 08/21/18 16:33> Objective - Vital Signs/Intake and Output Vital Signs (last 24 hours): Temp Pulse Resp BP Pulse Ox 98.2 F 83 19 117/69 97 08/21/18 16:08 08/21/18 16:08 08/21/18 16:08 08/21/18 16:08 08/21/18 16:08 - Medications Medications: Current Medications Acetaminophen (Tylenol 650 Mg Supp) 650 mg RI Q6 PRN PRN Reason: Fever >100.4 F Last Admin: 08/15/18 10:46 Dose: 650 mg Dextrose (Dextrose 50% Inj) 0 ml IV STAT PRN; Protocol PRN Reason: Hypoglycemia Protocol Dextrose (Glutose 15) 0 gm PO ONCE PRN; Protocol PRN Reason: Hypoglycemia Protocol Enoxaparin Sodium (Lovenox) 40 mg SC DAILY [facility]; Protocol Last Admin: 08/21/18 09:39 Dose: 40 mg Glipizide (Glucotrol Xl) 5 mg PO BRK [facility] Last Admin: 08/21/18 08:10 Dose: 5 mg Glucagon (Glucagen Diagnostic Kit) 0 mg IM STAT PRN; Protocol PRN Reason: Hypoglycemia Protocol Insulin Detemir (Levemir) 15 units SC HS [facility] Last Admin: 08/20/18 22:17 Dose: 15 units Insulin Human Lispro (Humalog) 0 units SC ACHS [facility]; Protocol Last Admin: 08/21/18 11:30 Dose: Not Given Losartan Potassium (Cozaar) 50 mg PO DAILY [facility] Last Admin: 08/21/18 09:40 Dose: 50 mg Morphine Sulfate (Morphine) 4 mg IVP Q4 PRN PRN Reason: Pain, severe (8-10) Last Admin: 08/21/18 14:21 Dose: 4 mg Ondansetron HCl (Zofran Inj) 4 mg IVP Q4 PRN PRN Reason: Nausea/Vomiting Last Admin: 08/19/18 06:20 Dose: 4 mg Oxycodone/Acetaminophen (Percocet 5/325 Mg Tab) 1 tab PO Q4 PRN PRN Reason: Pain, Mild (1-3) Stop: 08/24/18 10:44 Oxycodone/Acetaminophen (Percocet 5/325 Mg Tab) 2 tab PO Q4 PRN PRN Reason: Pain, moderate (4-7) Stop: 08/24/18 10:44 Pantoprazole Sodium (Protonix Inj) 40 mg IVP DAILY [facility] Last Admin: 08/21/18 09:41 Dose: 40 mg - Labs Labs: 08/21/18 05:30 08/21/18 05:18 PT 12.1 Seconds (9.8-13.1) 08/14/18 04:50 INR 1.1 08/14/18 04:50 APTT 34.1 Seconds (25.6-37.1) 08/14/18 04:50 Attending/Attestation - Attestation I have personally seen and examined this patient.: Yes I have fully participated in the care of the patient.: Yes I have reviewed all pertinent clinical information, including history, physical exam and plan: Yes Notes (Text): 1. SBO s/p Explor Lap and Repair of Enterotomy - + Flatus and BM -tolerating Liquid diet - feels better today, await Surgery to upgrade diet 2. Newly Diagnosed DM type II - cont Accucheck with coverage -cont low dose Levemir and Glipizide, once on Full diet , will maximize oral hypoglycemics 3. Sinus Tachycardia resolved 4. HTN - cont Losartan DVT Proph - Lovenox 08/21/18 16:33
--- NOTE | 2018-08-21 10:48 | CP.PCM.PN ---
Subjective - Date & Time of Evaluation Date of Evaluation: 08/21/18 Time of Evaluation: 10:45 - Subjective Subjective: General Surgery Pt seen and examined this AM. He reports tolerating his liquid diet, however continues to have diarrhea. About 4 episodes per day. He denies N/V today. (+) flatus. Pt has been ambulatory. Labs and vitals noted. WBC trending up slowly. Afebrile PE Gen : Pt walking in room in NAD Skin: warm and dry, see abd Cardio: s1s2 RRR Lungs: CTA bilaterally Abd: Soft, (+) andria incisional tenderness, (+) stapled midline surgical incision with dry blood and small amount of bleeding. Otherwise intact. A/P 32 year old male s/p diagnostic laparoscopy, exploratory laparotomy and repair of serosal tear/enterotomy, POD 7 for SBO Monitor WBC, will repeat labs tomorrow in AM Advance diet to solids, as per RD recs. Pt may shower Objective - Vital Signs/Intake and Output Vital Signs (last 24 hours): Temp Pulse Resp BP Pulse Ox 97.8 F 74 20 114/72 98 08/21/18 08:08 08/21/18 09:40 08/21/18 08:08 08/21/18 09:40 08/21/18 08:08 - Medications Medications: Current Medications Acetaminophen (Tylenol 650 Mg Supp) 650 mg [place] Q6 PRN PRN Reason: Fever >100.4 F Last Admin: 08/15/18 10:46 Dose: 650 mg Dextrose (Dextrose 50% Inj) 0 ml IV STAT PRN; Protocol PRN Reason: Hypoglycemia Protocol Dextrose (Glutose 15) 0 gm PO ONCE PRN; Protocol PRN Reason: Hypoglycemia Protocol Enoxaparin Sodium (Lovenox) 40 mg SC DAILY [facility]; Protocol Last Admin: 08/21/18 09:39 Dose: 40 mg Glipizide (Glucotrol Xl) 5 mg PO BRK [facility] Last Admin: 08/21/18 08:10 Dose: 5 mg Glucagon (Glucagen Diagnostic Kit) 0 mg IM STAT PRN; Protocol PRN Reason: Hypoglycemia Protocol Insulin Detemir (Levemir) 15 units SC HS [facility] Last Admin: 08/20/18 22:17 Dose: 15 units Insulin Human Lispro (Humalog) 0 units SC ACHS [facility]; Protocol Last Admin: 08/21/18 06:30 Dose: Not Given Losartan Potassium (Cozaar) 50 mg PO DAILY [facility] Last Admin: 08/21/18 09:40 Dose: 50 mg Ondansetron HCl (Zofran Inj) 4 mg IVP Q4 PRN PRN Reason: Nausea/Vomiting Last Admin: 08/19/18 06:20 Dose: 4 mg Oxycodone/Acetaminophen (Percocet 5/325 Mg Tab) 1 tab PO Q4 PRN PRN Reason: Pain, Mild (1-3) Stop: 08/24/18 10:44 Oxycodone/Acetaminophen (Percocet 5/325 Mg Tab) 2 tab PO Q4 PRN PRN Reason: Pain, moderate (4-7) Stop: 08/24/18 10:44 Pantoprazole Sodium (Protonix Inj) 40 mg IVP DAILY [facility] Last Admin: 08/21/18 09:41 Dose: 40 mg - Labs Labs: 08/21/18 05:30 08/21/18 05:18 PT 12.1 Seconds (9.8-13.1) 08/14/18 04:50 INR 1.1 08/14/18 04:50 APTT 34.1 Seconds (25.6-37.1) 08/14/18 04:50
[2018-08-21] MEDS: Oxycodone/Acetaminophen 5/325 mg Tab PO PRN (20:42)
[2018-08-21] MEDS: Insulin Detemir 100 Units/ml Inj SC SCH (20:59)
[2018-08-22 00:26] VITALS: TEMP 98.1
[2018-08-22] MEDS: Oxycodone/Acetaminophen 5/325 mg Tab PO PRN (05:26)
[2018-08-22 07:14] LABS: BASO % 0.4 % (0.0-2.0); EOS # 0.1 K/uL (0.0-0.7); EOS % 1.5 % (0.0-4.0); HEMOGLOBIN 14.1 g/dL (12.0-18.0); LYMPH # 1.1 K/uL (1.0-4.3); MEAN CELL VOLUME 93.3 fl (80.0-94.0); MEAN CORPUSCULAR HEMOGLOBIN 32.6 pg (27.0-31.0); MEAN PLATELET VOLUME 8.7 fl (7.2-11.7); MONO # 1.7 K/uL (0.0-0.8); MONO % 18.2 % (0.0-10.0); NEUT # 6.5 K/uL (1.8-7.0); NEUT % 67.9 % (50.0-75.0); NRBC % 0.1 % (0.0-0.0); RBC 4.31 Mil/uL (4.40-5.90); RED CELL DISTRIBUTION WIDTH 12.8 % (11.5-14.5); WHITE BLOOD COUNT 9.6 K/uL (4.8-10.8)
[2018-08-22 07:20] LABS: BLOOD UREA NITROGEN 9 mg/dl (9-20); CALCIUM 9.2 mg/dL (8.4-10.2); GFR NON-AFRICAN AMERICAN > 60
[2018-08-22 07:50] VITALS: BP 115/66; PULSE 77; RESP 20; O2SAT 99
--- NOTE | 2018-08-22 08:16 | CP.PCM.PN ---
Objective - Vital Signs/Intake and Output Vital Signs (last 24 hours): Temp Pulse Resp BP Pulse Ox 98.1 F 77 20 115/66 99 08/22/18 07:50 08/22/18 07:50 08/22/18 07:50 08/22/18 07:50 08/22/18 07:50 - Medications Medications: Current Medications Acetaminophen (Tylenol 650 Mg Supp) 650 mg [place] Q6 PRN PRN Reason: Fever >100.4 F Last Admin: 08/15/18 10:46 Dose: 650 mg Dextrose (Dextrose 50% Inj) 0 ml IV STAT PRN; Protocol PRN Reason: Hypoglycemia Protocol Dextrose (Glutose 15) 0 gm PO ONCE PRN; Protocol PRN Reason: Hypoglycemia Protocol Enoxaparin Sodium (Lovenox) 40 mg SC DAILY [facility]; Protocol Last Admin: 08/21/18 09:39 Dose: 40 mg Glipizide (Glucotrol Xl) 5 mg PO BRK [facility] Last Admin: 08/21/18 08:10 Dose: 5 mg Glucagon (Glucagen Diagnostic Kit) 0 mg IM STAT PRN; Protocol PRN Reason: Hypoglycemia Protocol Insulin Detemir (Levemir) 15 units SC [facility] Last Admin: 08/21/18 20:59 Dose: 15 units Insulin Human Lispro (Humalog) 0 units SC [facility]; Protocol Last Admin: 08/21/18 23:00 Dose: Not Given Losartan Potassium (Cozaar) 50 mg PO DAILY [facility] Last Admin: 08/21/18 09:40 Dose: 50 mg Morphine Sulfate (Morphine) 4 mg IVP Q4 PRN PRN Reason: Pain, severe (8-10) Last Admin: 08/21/18 14:21 Dose: 4 mg Ondansetron HCl (Zofran Inj) 4 mg IVP Q4 PRN PRN Reason: Nausea/Vomiting Last Admin: 08/19/18 06:20 Dose: 4 mg Oxycodone/Acetaminophen (Percocet 5/325 Mg Tab) 1 tab PO Q4 PRN PRN Reason: Pain, Mild (1-3) Stop: 08/24/18 10:44 Last Admin: 08/22/18 05:26 Dose: 1 tab Oxycodone/Acetaminophen (Percocet 5/325 Mg Tab) 2 tab PO Q4 PRN PRN Reason: Pain, moderate (4-7) Stop: 08/24/18 10:44 Pantoprazole Sodium (Protonix Inj) 40 mg IVP DAILY [facility] Last Admin: 08/21/18 09:41 Dose: 40 mg - Labs Labs: 08/22/18 06:12 08/22/18 06:12 PT 12.1 Seconds (9.8-13.1) 08/14/18 04:50 INR 1.1 08/14/18 04:50 APTT 34.1 Seconds (25.6-37.1) 08/14/18 04:50
[2018-08-22] MEDS: Insulin Lispro (humaLOG) 100 Units/ml Inj SC SCH ×2 (08:26→12:01)
[2018-08-22] MEDS: GlipiZIDE 5 mg SR Tab PO SCH (08:37)
[2018-08-22] MEDS: Enoxaparin 40 mg Syringe SC SCH (08:38)
--- NOTE | 2018-08-22 09:10 | CP.PCM.PN ---
Subjective - Date & Time of Evaluation Date of Evaluation: 08/22/18 Time of Evaluation: 09:10 - Subjective Subjective: General Surgery Progress Note: Dr. Somers 32 year old male patient, seen and examined at bedside this AM. +BM, +flatus. Patient tolerating diet, denies any abdominal discomfort. Denies nausea/vomiting/fever/chills. Objective - Vital Signs/Intake and Output Vital Signs (last 24 hours): Temp Pulse Resp BP Pulse Ox 98.1 F 77 20 115/66 99 08/22/18 09:00 08/22/18 09:00 08/22/18 09:00 08/22/18 09:00 08/22/18 09:00 - Medications Medications: Current Medications Acetaminophen (Tylenol 650 Mg Supp) 650 mg [place] Q6 PRN PRN Reason: Fever >100.4 F Last Admin: 08/15/18 10:46 Dose: 650 mg Dextrose (Dextrose 50% Inj) 0 ml IV STAT PRN; Protocol PRN Reason: Hypoglycemia Protocol Dextrose (Glutose 15) 0 gm PO ONCE PRN; Protocol PRN Reason: Hypoglycemia Protocol Enoxaparin Sodium (Lovenox) 40 mg SC DAILY [facility]; Protocol Last Admin: 08/22/18 08:38 Dose: 40 mg Glipizide (Glucotrol Xl) 5 mg PO K [facility] Last Admin: 08/22/18 08:37 Dose: 5 mg Glucagon (Glucagen Diagnostic Kit) 0 mg IM STAT PRN; Protocol PRN Reason: Hypoglycemia Protocol Insulin Detemir (Levemir) 15 units SC [facility] Last Admin: 08/21/18 20:59 Dose: 15 units Insulin Human Lispro (Humalog) 0 units SC [facility]; Protocol Last Admin: 08/22/18 08:26 Dose: Not Given Losartan Potassium (Cozaar) 50 mg PO DAILY [facility] Last Admin: 08/22/18 08:37 Dose: 50 mg Morphine Sulfate (Morphine) 4 mg IVP Q4 PRN PRN Reason: Pain, severe (8-10) Last Admin: 08/21/18 14:21 Dose: 4 mg Ondansetron HCl (Zofran Inj) 4 mg IVP Q4 PRN PRN Reason: Nausea/Vomiting Last Admin: 08/19/18 06:20 Dose: 4 mg Oxycodone/Acetaminophen (Percocet 5/325 Mg Tab) 1 tab PO Q4 PRN PRN Reason: Pain, Mild (1-3) Stop: 08/24/18 10:44 Last Admin: 08/22/18 05:26 Dose: 1 tab Oxycodone/Acetaminophen (Percocet 5/325 Mg Tab) 2 tab PO Q4 PRN PRN Reason: Pain, moderate (4-7) Stop: 08/24/18 10:44 Last Admin: 08/22/18 08:36 Dose: 2 tab Pantoprazole Sodium (Protonix Inj) 40 mg IVP DAILY [facility] Last Admin: 08/22/18 08:37 Dose: 40 mg - Labs Labs: 08/22/18 06:12 08/22/18 06:12 PT 12.1 Seconds (9.8-13.1) 08/14/18 04:50 INR 1.1 08/14/18 04:50 APTT 34.1 Seconds (25.6-37.1) 08/14/18 04:50 - Constitutional Appears: Non-toxic, No Acute Distress - Head Exam Head Exam: ATRAUMATIC, NORMOCEPHALIC - Eye Exam Eye Exam: Normal appearance - ENT Exam ENT Exam: Mucous Membranes Moist - GI/Abdominal Exam GI & Abdominal Exam: Soft, Tenderness (mild) Additional comments: Surgical incision skin well coapted, gee intact, no active drainage or purulence appreciated - Extremities Exam Extremities Exam: Normal Capillary Refill. absent: Calf Tenderness - Neurological Exam Neurological Exam: Alert, Awake, Oriented x3 - Psychiatric Exam Psychiatric exam: Normal Affect, Normal Mood Assessment and Plan - Assessment and Plan (Free Text) Assessment: 32 year old male s/p diagnostic laparoscopy, exploratory laparotomy and repair of serosal tear/enterotomy, POD 8 for SBO Plan: - Altered GI diet - Zofran PRN - Pain control - Replete electrolytes PRN - Patient is clear for discharge from surgical standpoint - Patient to f/u as outpatient for staple removal - Further recs per Dr. Will Cade PGY1
--- NOTE | 2018-08-22 10:20 | CP.PCM.PN ---
Subjective - Date & Time of Evaluation Date of Evaluation: 08/22/18 Time of Evaluation: 10:06 - Subjective Subjective: General Surgery Pt seen and examined this AM. He reports feeling well, tolerating diet. (-) N/V/D. Afebrile. Labs and vitals noted. PE Gen: pt sitting in chair in NAD Skin: warm and dry, see abd Cardio: s1s2 RRR Lungs: CTA bilaterally Abd: Soft , NTND. Stapled surgical incision with scant blood, otherwise intact. Extr: (-) calf tenderness bilaterally A/P 32 year old male s/p diagnostic laparoscopy, exploratory laparotomy and repair of serosal tear/enterotomy, POD 8 for SBO Pt cleared for d/c from surgical perspective Pt to follow up with Dr. Somers in the office in 7-10 days. No lifting > 20lbs x 4 weeks Percocet rx left in chart. Objective - Vital Signs/Intake and Output Vital Signs (last 24 hours): Temp Pulse Resp BP Pulse Ox 98.1 F 77 20 115/66 99 08/22/18 09:00 08/22/18 09:00 08/22/18 09:00 08/22/18 09:00 08/22/18 09:00 - Medications Medications: Current Medications Acetaminophen (Tylenol 650 Mg Supp) [address] Q6 PRN PRN Reason: Fever >100.4 F Last Admin: 08/15/18 10:46 Dose: 650 mg Dextrose (Dextrose 50% Inj) 0 ml IV STAT PRN; Protocol PRN Reason: Hypoglycemia Protocol Dextrose (Glutose 15) 0 gm PO ONCE PRN; Protocol PRN Reason: Hypoglycemia Protocol Enoxaparin Sodium (Lovenox) 40 mg SC DAILY [facility]; Protocol Last Admin: 08/22/18 08:38 Dose: 40 mg Glipizide (Glucotrol Xl) 5 mg PO BRK [facility] Last Admin: 08/22/18 08:37 Dose: 5 mg Glucagon (Glucagen Diagnostic Kit) 0 mg IM STAT PRN; Protocol PRN Reason: Hypoglycemia Protocol Insulin Detemir (Levemir) 15 units SC HS [facility] Last Admin: 08/21/18 20:59 Dose: 15 units Insulin Human Lispro (Humalog) 0 units SC ACHS [facility]; Protocol Last Admin: 08/22/18 08:26 Dose: Not Given Losartan Potassium (Cozaar) 50 mg PO DAILY [facility] Last Admin: 08/22/18 08:37 Dose: 50 mg Morphine Sulfate (Morphine) 4 mg IVP Q4 PRN PRN Reason: Pain, severe (8-10) Last Admin: 08/21/18 14:21 Dose: 4 mg Ondansetron HCl (Zofran Inj) 4 mg IVP Q4 PRN PRN Reason: Nausea/Vomiting Last Admin: 08/19/18 06:20 Dose: 4 mg Oxycodone/Acetaminophen (Percocet 5/325 Mg Tab) 1 tab PO Q4 PRN PRN Reason: Pain, Mild (1-3) Stop: 08/24/18 10:44 Last Admin: 08/22/18 05:26 Dose: 1 tab Oxycodone/Acetaminophen (Percocet 5/325 Mg Tab) 2 tab PO Q4 PRN PRN Reason: Pain, moderate (4-7) Stop: 08/24/18 10:44 Last Admin: 08/22/18 08:36 Dose: 2 tab Pantoprazole Sodium (Protonix Inj) 40 mg IVP DAILY [facility] Last Admin: 08/22/18 08:37 Dose: 40 mg - Labs Labs: 08/22/18 06:12 08/22/18 06:12 PT 12.1 Seconds (9.8-13.1) 08/14/18 04:50 INR 1.1 08/14/18 04:50 APTT 34.1 Seconds (25.6-37.1) 08/14/18 04:50
--- NOTE | 2018-08-22 10:25 | CP.PCM.DIS ---
<NidaluisHansa garcia - Last Filed: 08/22/18 12:48> Provider - Provider Date of Admission: 08/14/18 04:35 Attending physician: Angel Issa Primary care physician: None Consults: 08/14/18 04:30 Surgery [General Surgery Consult] Stat Comment: Consulting Provider: Vignesh Solis Consulting Physician: Vignesh Solis Reason for Consult: SBO 08/14/18 17:11 Diabetic Education Referral Routine Comment: Physician Instructions: Reason For Exam: newly doagnosed DM Time Spent in preparation of Discharge (in minutes): 10 Diagnosis - Discharge Diagnosis (1) Small bowel obstruction Status: Acute Comment: Acute high grade SBO s/p exploratory laparotomy and repair of ent erotomy and serosal tear doing well POD #8. hemodynamically stable for D/C with outpt follow up with surgery for staple remoal and at [facility] with Dr. Vargas on August 28 at 9:20 (2) Hyperglycemia Status: Acute Comment: Newly diagnosed DM. HGA1c 12.4. Pt was insulin controlled on floor. D/C with Glipizide 10mg QD. F/u outpt (3) Gastroparesis Status: Acute Comment: SBO thought to be due to gastroparesis from undiagnosed and untreated diabetes. Pt receieved diabetes education in hospital (4) HTN (hypertension) Status: Acute Comment: Newly diagnosed HTN. started and discharged with Cozaar 50mg QD Hospital Course - Lab Results Lab Results: Most Recent Lab Values WBC 9.6 K/uL (4.8-10.8) 08/22/18 06:12 RBC 4.31 Mil/uL (4.40-5.90) L 08/22/18 06:12 Hgb 14.1 g/dL (12.0-18.0) 08/22/18 06:12 Hct 40.2 % (35.0-51.0) 08/22/18 06:12 MCV 93.3 fl (80.0-94.0) D 08/22/18 06:12 MCH 32.6 pg (27.0-31.0) H 08/22/18 06:12 MCHC 35.0 g/dL (33.0-37.0) 08/22/18 06:12 RDW 12.8 % (11.5-14.5) 08/22/18 06:12 Plt Count 275 K/uL (130-400) 08/22/18 06:12 MPV 8.7 fl (7.2-11.7) 08/22/18 06:12 Neut % (Auto) 67.9 % (50.0-75.0) 08/22/18 06:12 Lymph % (Auto) 12.0 % (20.0-40.0) L 08/22/18 06:12 [place] % (Auto) 18.2 % (0.0-10.0) H 08/22/18 06:12 Eos % (Auto) 1.5 % (0.0-4.0) 08/22/18 06:12 Baso % (Auto) 0.4 % (0.0-2.0) 08/22/18 06:12 Neut # (Auto) 6.5 K/uL (1.8-7.0) 08/22/18 06:12 Lymph # (Auto) 1.1 K/uL (1.0-4.3) 08/22/18 06:12 [place] # (Auto) 1.7 K/uL (0.0-0.8) H 08/22/18 06:12 Eos # (Auto) 0.1 K/uL (0.0-0.7) 08/22/18 06:12 Baso # (Auto) 0.0 K/uL (0.0-0.2) 08/22/18 06:12 Total Counted Cancelled 08/20/18 06:05 Neutrophils % (Manual) 68 % (42-75) 08/19/18 05:50 Band Neutrophils % 6 % (0-2) H 08/19/18 05:50 Lymphocytes % (Manual) 5 % (20-50) L 08/19/18 05:50 Reactive Lymphs % 2 % (0-0) H 08/17/18 05:30 Monocytes % (Manual) 20 % (0-10) H 08/19/18 05:50 Eosinophils % (Manual) 1 % (0-7) 08/19/18 05:50 Basophils % (Manual) 2 % (0-2) 08/17/18 05:30 Metamyelocytes % Cancelled 08/20/18 06:05 Myelocytes % Cancelled 08/20/18 06:05 Promyelocytes % Cancelled 08/20/18 06:05 Blast Cells % Cancelled 08/20/18 06:05 Plasma Cell % (Manual) Cancelled 08/20/18 06:05 Nucleated RBC % Cancelled 08/20/18 06:05 Hypersegmented Polys Cancelled 08/20/18 06:05 Smudge Cells Cancelled 08/20/18 06:05 Toxic Granulation Cancelled 08/20/18 06:05 Dohle Bodies Cancelled 08/20/18 06:05 Rex Rods Cancelled 08/20/18 06:05 Platelet Estimate Normal (NORMAL) 08/19/18 05:50 Plt Clumps, EDTA Cancelled 08/20/18 06:05 Large Platelets Present 08/17/18 05:30 Giant Platelets Present 08/19/18 05:50 RBC Morphology Normal (NORMAL) 08/13/18 23:20 Polychromasia Cancelled 08/20/18 06:05 Hypochromasia (manual) Cancelled 08/20/18 06:05 Poikilocytosis (manual Slight 08/17/18 05:30 Basophilic Stippling Cancelled 08/20/18 06:05 Anisocytosis (manual) Slight 08/19/18 05:50 Microcytosis (manual) Cancelled 08/20/18 06:05 Macrocytosis (manual) Slight 08/19/18 05:50 Spherocytes Slight 08/17/18 05:30 Sickle Cells Cancelled 08/20/18 06:05 Target Cells Cancelled 08/20/18 06:05 Tear Drop Cells Cancelled 08/20/18 06:05 Ovalocytes Slight 08/19/18 05:50 Stomatocytes Slight 08/17/18 05:30 Helmet Cells Cancelled 08/20/18 06:05 [place] Bodies Cancelled 08/20/18 06:05 [place] Cells Cancelled 08/20/18 06:05 Acanthocytes (Spur) Cancelled 08/20/18 06:05 Rouleaux Cancelled 08/20/18 06:05 Schistocytes Cancelled 08/20/18 06:05 PT 12.1 Seconds (9.8-13.1) 08/14/18 04:50 INR 1.1 08/14/18 04:50 APTT 34.1 Seconds (25.6-37.1) 08/14/18 04:50 pO2 57 mm/Hg (30-55) H 08/14/18 01:45 VBG pH 7.37 (7.32-7.43) 08/14/18 01:45 VBG pCO2 36 mmHg (40-60) L 08/14/18 01:45 VBG HCO3 21.6 mmol/L 08/14/18 01:45 VBG Total CO2 21.9 mmol/L (22-28) L 08/14/18 01:45 VBG O2 Sat (Calc) 93.0 % (40-65) H 08/14/18 01:45 VBG Base Excess -3.9 mmol/L (0.0-2.0) L 08/14/18 01:45 VBG Potassium 4.1 mmol/L (3.6-5.2) 08/14/18 01:45 Sodium 131.0 mmol/L (132-148) L 08/14/18 01:45 Chloride 95.0 mmol/L (98-107) L 08/14/18 01:45 Glucose 260 mg/dL (75-110) H 08/14/18 01:45 Lactate 1.2 mmol/L (0.7-2.1) 08/14/18 01:45 FiO2 21.0 % 08/14/18 01:45 Sodium 134 mmol/l (132-148) 08/22/18 06:12 Potassium 4.5 MMOL/L (3.6-5.0) 08/22/18 06:12 Chloride 98 mmol/L (98-107) 08/22/18 06:12 Carbon Dioxide 27 mmol/L (22-30) 08/22/18 06:12 Anion Gap 14 (10-20) 08/22/18 06:12 BUN 9 mg/dl (9-20) 08/22/18 06:12 Creatinine 0.6 mg/dl (0.8-1.5) L 08/22/18 06:12 Est GFR ( Amer) > 60 08/22/18 06:12 Est GFR (Non-Af Amer) > 60 08/22/18 06:12 POC Glucose (mg/dL) 116 mg/dL (65-110) H 08/22/18 05:20 Random Glucose 111 mg/dL (75-110) H 08/22/18 06:12 Hemoglobin A1c 12.4 % (4.2-6.5) H 08/14/18 06:55 Calcium 9.2 mg/dL (8.4-10.2) 08/22/18 06:12 Phosphorus 3.1 mg/dl (2.5-4.5) 08/15/18 04:55 Magnesium 1.8 MG/DL (1.6-2.3) 08/15/18 04:55 Total Bilirubin 1.5 mg/dl (0.2-1.3) H 08/19/18 05:50 Direct Bilirubin 0.4 mg/ml (0.0-0.4) 08/16/18 04:55 AST 43 U/L (17-59) 08/19/18 05:50 ALT 45 U/L (21-72) 08/19/18 05:50 Alkaline Phosphatase 92 U/L (38-126) 08/19/18 05:50 Total Protein 7.1 G/DL (6.3-8.2) 08/19/18 05:50 Albumin 3.8 g/dL (3.5-5.0) 08/19/18 05:50 Globulin 3.3 gm/dL (2.2-3.9) 08/19/18 05:50 Albumin/Globulin Ratio 1.2 (1.0-2.1) 08/19/18 05:50 Lipase 208 U/L (23-300) 08/13/18 23:20 Venous Blood Potassium 4.1 mmol/L (3.6-5.2) 08/14/18 01:45 Urine Color Yellow (YELLOW) 08/14/18 00:10 Urine Clarity Clear (Clear) 08/14/18 00:10 Urine pH 6.0 (5.0-8.0) 08/14/18 00:10 Ur Specific [place] 1.039 (1.003-1.030) H 08/14/18 00:10 Urine Protein 100 mg/dL (NEGATIVE) 08/14/18 00:10 Urine Glucose (UA) >=500 mg/dL (NEGATIVE) 08/14/18 00:10 Urine Ketones 80 mg/dL (NEGATIVE) 08/14/18 00:10 Urine Blood Negative (NEGATIVE) 08/14/18 00:10 Urine Nitrate Negative (NEGATIVE) 08/14/18 00:10 Urine Bilirubin Negative (NEGATIVE) 08/14/18 00:10 Urine Urobilinogen 0.2-1.0 mg/dL (0.2-1.0) 08/14/18 00:10 Ur Leukocyte Esterase Neg Torrie/uL (Negative) 08/14/18 00:10 Urine RBC (Auto) 1 /hpf (0-3) 08/14/18 00:10 Urine Microscopic WBC < 1 /hpf (0-5) 08/14/18 00:10 Blood Type O POSITIVE 08/14/18 11:50 Blood Type Confirm O POSITIVE 08/14/18 06:55 Antibody Screen Negative 08/14/18 11:50 BBK History Checked No verified bt 08/14/18 11:50 - Hospital Course Hospital Course: Pt is a 32 yo M with no pmhx presented to ED c/o diffuse abdominal pain sharp and constant 7/10, nausea and several episodes of nbnb vomiting x2 days, decreased flatus. Abd CT: Evidence of high grade small bowel obstruction. Surgery consulted. Admitted due to high grade SBO s/p exploratory laparotomy and repair of enterotomy and serosal tear. Pt was diagnosed in hospital with DM and HTN, Hga1c 12.4 SBO was thought to be due to gastroparesis. KUB and small bowel series were done post op- no free air, evidence of known obstruction. Today patient feels well, POD 8, tolerating oral intake, having normal bowel movements, passing flatus. Denies F/C/CP/SOB/Cough/N/V/D/C or dysuria. Hemodynamically stable for D/C with Glipizide 10mg QD, Cozar 50mg QD and Pepcid 20mg QD, Pt to follow up with surgery for staple removal and [facility] with Dr. Vargas on August 28 @9:20 Discharge Exam - Head Exam Head Exam: ATRAUMATIC, NORMOCEPHALIC - Eye Exam Eye Exam: EOMI, Normal appearance - ENT Exam ENT Exam: Mucous Membranes Moist - Respiratory Exam Respiratory Exam: Clear to PA & Lateral. absent: Rales, Rhonchi, Wheezes - Cardiovascular Exam Cardiovascular Exam: RRR, +S1, +S2 - GI/Abdominal Exam GI & Abdominal Exam: Normal Bowel Sounds, Soft. absent: Tenderness Additional comments: Vertical incision gee, dried blood noted, intact. 2 laparoscopic incisions noted intact with gee - Extremities Exam Extremities exam: normal inspection - Neurological Exam Neurological exam: Alert, Oriented x3 Discharge Plan - Discharge Medications Prescriptions: Famotidine [Pepcid] 20 mg PO DAILY #30 tab Glipizide [Glipizide ER] 10 mg PO DAILY #30 tab.er.24 Losartan [Cozaar] 50 mg PO DAILY #30 tab - Follow Up Plan Condition: FAIR Disposition: HOME/ ROUTINE Instructions: Hyperglycemia, Adult (DC), Small Bowel Obstruction (DC), Exploratory Laparotomy (DC), Diabetes and Diet Additional Instructions: Follow up at the [facility] August 28 at 9:20am with Dr. Vargas patient to follow up as outpatient for staple removal [facility] 1 aceves a las 9:20am con Dr. Vargas para remover grapas Referrals: [facility] [Outside] Candido Somers MD [Medical Doctor] - <Breanna Mesa - Last Filed: 08/23/18 21:26> Provider - Provider Date of Admission: 08/14/18 04:35 Attending physician: Angel Issa Consults: 08/14/18 04:30 Surgery [General Surgery Consult] Stat Comment: Consulting Provider: Vignesh Solis Consulting Physician: Vignesh Solis Reason for Consult: SBO 08/14/18 17:11 Diabetic Education Referral Routine Comment: Physician Instructions: Reason For Exam: newly doagnosed DM Hospital Course - Lab Results Lab Results: Most Recent Lab Values WBC 9.6 K/uL (4.8-10.8) 08/22/18 06:12 RBC 4.31 Mil/uL (4.40-5.90) L 08/22/18 06:12 Hgb 14.1 g/dL (12.0-18.0) 08/22/18 06:12 Hct 40.2 % (35.0-51.0) 08/22/18 06:12 MCV 93.3 fl (80.0-94.0) D 08/22/18 06:12 MCH 32.6 pg (27.0-31.0) H 08/22/18 06:12 MCHC 35.0 g/dL (33.0-37.0) 08/22/18 06:12 RDW 12.8 % (11.5-14.5) 08/22/18 06:12 Plt Count 275 K/uL (130-400) 08/22/18 06:12 MPV 8.7 fl (7.2-11.7) 08/22/18 06:12 Neut % (Auto) 67.9 % (50.0-75.0) 08/22/18 06:12 Lymph % (Auto) 12.0 % (20.0-40.0) L 08/22/18 06:12 [place] % (Auto) 18.2 % (0.0-10.0) H 08/22/18 06:12 Eos % (Auto) 1.5 % (0.0-4.0) 08/22/18 06:12 Baso % (Auto) 0.4 % (0.0-2.0) 08/22/18 06:12 Neut # (Auto) 6.5 K/uL (1.8-7.0) 08/22/18 06:12 Lymph # (Auto) 1.1 K/uL (1.0-4.3) 08/22/18 06:12 [place] # (Auto) 1.7 K/uL (0.0-0.8) H 08/22/18 06:12 Eos # (Auto) 0.1 K/uL (0.0-0.7) 08/22/18 06:12 Baso # (Auto) 0.0 K/uL (0.0-0.2) 08/22/18 06:12 Total Counted Cancelled 08/20/18 06:05 Neutrophils % (Manual) 68 % (42-75) 08/19/18 05:50 Band Neutrophils % 6 % (0-2) H 08/19/18 05:50 Lymphocytes % (Manual) 5 % (20-50) L 08/19/18 05:50 Reactive Lymphs % 2 % (0-0) H 08/17/18 05:30 Monocytes % (Manual) 20 % (0-10) H 08/19/18 05:50 Eosinophils % (Manual) 1 % (0-7) 08/19/18 05:50 Basophils % (Manual) 2 % (0-2) 08/17/18 05:30 Metamyelocytes % Cancelled 08/20/18 06:05 Myelocytes % Cancelled 08/20/18 06:05 Promyelocytes % Cancelled 08/20/18 06:05 Blast Cells % Cancelled 08/20/18 06:05 Plasma Cell % (Manual) Cancelled 08/20/18 06:05 Nucleated RBC % Cancelled 08/20/18 06:05 Hypersegmented Polys Cancelled 08/20/18 06:05 Smudge Cells Cancelled 08/20/18 06:05 Toxic Granulation Cancelled 08/20/18 06:05 Dohle Bodies Cancelled 08/20/18 06:05 Rex Rods Cancelled 08/20/18 06:05 Platelet Estimate Normal (NORMAL) 08/19/18 05:50 Plt Clumps, EDTA Cancelled 08/20/18 06:05 Large Platelets Present 08/17/18 05:30 Giant Platelets Present 08/19/18 05:50 RBC Morphology Normal (NORMAL) 08/13/18 23:20 Polychromasia Cancelled 08/20/18 06:05 Hypochromasia (manual) Cancelled 08/20/18 06:05 Poikilocytosis (manual Slight 08/17/18 05:30 Basophilic Stippling Cancelled 08/20/18 06:05 Anisocytosis (manual) Slight 08/19/18 05:50 Microcytosis (manual) Cancelled 08/20/18 06:05 Macrocytosis (manual) Slight 08/19/18 05:50 Spherocytes Slight 08/17/18 05:30 Sickle Cells Cancelled 08/20/18 06:05 Target Cells Cancelled 08/20/18 06:05 Tear Drop Cells Cancelled 08/20/18 06:05 Ovalocytes Slight 08/19/18 05:50 Stomatocytes Slight 08/17/18 05:30 Helmet Cells Cancelled 08/20/18 06:05 [place] Bodies Cancelled 08/20/18 06:05 [place] Cells Cancelled 08/20/18 06:05 Acanthocytes (Spur) Cancelled 08/20/18 06:05 Rouleaux Cancelled 08/20/18 06:05 Schistocytes Cancelled 08/20/18 06:05 PT 12.1 Seconds (9.8-13.1) 08/14/18 04:50 INR 1.1 08/14/18 04:50 APTT 34.1 Seconds (25.6-37.1) 08/14/18 04:50 pO2 57 mm/Hg (30-55) H 08/14/18 01:45 VBG pH 7.37 (7.32-7.43) 08/14/18 01:45 VBG pCO2 36 mmHg (40-60) L 08/14/18 01:45 VBG HCO3 21.6 mmol/L 08/14/18 01:45 VBG Total CO2 21.9 mmol/L (22-28) L 08/14/18 01:45 VBG O2 Sat (Calc) 93.0 % (40-65) H 08/14/18 01:45 VBG Base Excess -3.9 mmol/L (0.0-2.0) L 08/14/18 01:45 VBG Potassium 4.1 mmol/L (3.6-5.2) 08/14/18 01:45 Sodium 131.0 mmol/L (132-148) L 08/14/18 01:45 Chloride 95.0 mmol/L (98-107) L 08/14/18 01:45 Glucose 260 mg/dL (75-110) H 08/14/18 01:45 Lactate 1.2 mmol/L (0.7-2.1) 08/14/18 01:45 FiO2 21.0 % 08/14/18 01:45 Sodium 134 mmol/l (132-148) 08/22/18 06:12 Potassium 4.5 MMOL/L (3.6-5.0) 08/22/18 06:12 Chloride 98 mmol/L (98-107) 08/22/18 06:12 Carbon Dioxide 27 mmol/L (22-30) 08/22/18 06:12 Anion Gap 14 (10-20) 08/22/18 06:12 BUN 9 mg/dl (9-20) 08/22/18 06:12 Creatinine 0.6 mg/dl (0.8-1.5) L 08/22/18 06:12 Est GFR ( Amer) > 60 08/22/18 06:12 Est GFR (Non-Af Amer) > 60 08/22/18 06:12 POC Glucose (mg/dL) 198 mg/dL (65-110) H 08/22/18 11:20 Random Glucose 111 mg/dL (75-110) H 08/22/18 06:12 Hemoglobin A1c 12.4 % (4.2-6.5) H 08/14/18 06:55 Calcium 9.2 mg/dL (8.4-10.2) 08/22/18 06:12 Phosphorus 3.1 mg/dl (2.5-4.5) 08/15/18 04:55 Magnesium 1.8 MG/DL (1.6-2.3) 08/15/18 04:55 Total Bilirubin 1.5 mg/dl (0.2-1.3) H 08/19/18 05:50 Direct Bilirubin 0.4 mg/ml (0.0-0.4) 08/16/18 04:55 AST 43 U/L (17-59) 08/19/18 05:50 ALT 45 U/L (21-72) 08/19/18 05:50 Alkaline Phosphatase 92 U/L (38-126) 08/19/18 05:50 Total Protein 7.1 G/DL (6.3-8.2) 08/19/18 05:50 Albumin 3.8 g/dL (3.5-5.0) 08/19/18 05:50 Globulin 3.3 gm/dL (2.2-3.9) 08/19/18 05:50 Albumin/Globulin Ratio 1.2 (1.0-2.1) 08/19/18 05:50 Lipase 208 U/L (23-300) 08/13/18 23:20 Venous Blood Potassium 4.1 mmol/L (3.6-5.2) 08/14/18 01:45 Urine Color Yellow (YELLOW) 08/14/18 00:10 Urine Clarity Clear (Clear) 08/14/18 00:10 Urine pH 6.0 (5.0-8.0) 08/14/18 00:10 Ur Specific [place] 1.039 (1.003-1.030) H 08/14/18 00:10 Urine Protein 100 mg/dL (NEGATIVE) 08/14/18 00:10 Urine Glucose (UA) >=500 mg/dL (NEGATIVE) 08/14/18 00:10 Urine Ketones 80 mg/dL (NEGATIVE) 08/14/18 00:10 Urine Blood Negative (NEGATIVE) 08/14/18 00:10 Urine Nitrate Negative (NEGATIVE) 08/14/18 00:10 Urine Bilirubin Negative (NEGATIVE) 08/14/18 00:10 Urine Urobilinogen 0.2-1.0 mg/dL (0.2-1.0) 08/14/18 00:10 Ur Leukocyte Esterase Neg Torrie/uL (Negative) 08/14/18 00:10 Urine RBC (Auto) 1 /hpf (0-3) 08/14/18 00:10 Urine Microscopic WBC < 1 /hpf (0-5) 08/14/18 00:10 Blood Type O POSITIVE 08/14/18 11:50 Blood Type Confirm O POSITIVE 08/14/18 06:55 Antibody Screen Negative 08/14/18 11:50 BBK History Checked No verified bt 08/14/18 11:50 Attending/Attestation - Attestation I have personally seen and examined this patient.: Yes I have fully participated in the care of the patient.: Yes I have reviewed all pertinent clinical information, including history, physical exam and plan: Yes Notes (Text): agree with findings and plan as above.
== END 2018-08-22 12:05 | disposition home or self-care (01) | DRG 223 ==
LOC: H.ER 21:43 → H.ERHOLD 08-14 04:35 → H.MEDSURG1 08-14 06:12 → H.TEL 08-14 18:14 → H.MEDSURG1 08-16 16:15
PROVIDERS: ADMIT Internal Medicine; ATTEND Internal Medicine
PROC: 3E0T33Z Introduction of Anti-inflammatory into Peripheral Nerves and Plexi, Percutaneous Approach (ICD-10-PCS; 2018-08-14)
PROC: 0DQ80ZZ Repair Small Intestine, Open Approach (ICD-10-PCS; principal; 2018-08-14 11:45)
PROC: 3E0T3BZ Introduction of Anesthetic Agent into Peripheral Nerves and Plexi, Percutaneous Approach (ICD-10-PCS; 2018-08-14 11:45)
DX: K56.699 Other intestinal obstruction unspecified as to partial versus complete obstruction (principal); S36.438A Laceration of other part of small intestine, initial encounter; E11.65 Type 2 diabetes mellitus with hyperglycemia; I10 Essential (primary) hypertension; E87.6 Hypokalemia; R00.0 Tachycardia, unspecified; K31.84 Gastroparesis; Z53.31 Laparoscopic surgical procedure converted to open procedure; X58.XXXA Exposure to other specified factors, initial encounter

== ENCOUNTER 2018-08-26 21:39 | Inpatient (IN) | payer MEDICAID, SELFPAY ==
--- NOTE | 2018-08-26 23:09 | ED PDOC ---
HPI: General Adult Time Seen by Provider: 08/26/18 22:55 Chief Complaint (Nursing): Wound Check Chief Complaint (Provider): abdominal pain History Per: Patient (32 y/o male recent SBO with ex-lap/colectomy repair 08/14/2018 and d/c from hospital 08/22/2018 here with abdominal pain associated with wound opening and fluid draining from wound. No fevers/chills. No vomiting/diarrhea.) Past Medical History Reviewed: Historical Data, Nursing Documentation, Vital Signs Vital Signs: Last Vital Signs Temp 99.2 F 08/26/18 22:20 Pulse 78 08/26/18 22:20 Resp 16 08/26/18 22:20 BP 143/81 08/26/18 22:20 Pulse Ox 100 08/26/18 22:20 - Medical History PMH: Gastritis Denies: HIV - Family History Family History: States: Unknown Family Hx - Immunization History Hx Tetanus Toxoid Vaccination: No Hx Influenza Vaccination: No Hx Pneumococcal Vaccination: No - Home Medications Home Medications: Ambulatory Orders Medication Instructions Recorded Famotidine [Pepcid] 20 mg PO DAILY #30 tab 08/22/18 Glipizide [Glipizide ER] 10 mg PO DAILY #30 tab.er.24 08/22/18 Losartan [Cozaar] 50 mg PO DAILY #30 tab 08/22/18 Cephalexin [Keflex] 500 mg PO QID #28 capsule 08/26/18 - Allergies Allergies/Adverse Reactions: Allergies Allergy/AdvReac Type Severity Reaction Status Date / Time No Known Allergies Allergy Verified 08/26/18 22:20 Review of Systems ROS Statement: Except As Marked, All Systems Reviewed And Found Negative Physical Exam - Reviewed Nursing Documentation Reviewed: Yes Vital Signs Reviewed: Yes - Physical Exam Appears: Positive for: Well, Non-toxic, No Acute Distress Head Exam: Positive for: ATRAUMATIC, NORMAL INSPECTION, NORMOCEPHALIC Skin: Positive for: Normal Color, Warm, DRY Eye Exam: Positive for: EOMI, Normal appearance, PERRL ENT: Positive for: Normal ENT Inspection Neck: Positive for: Normal, Painless ROM Cardiovascular/Chest: Positive for: Regular Rate, Rhythm Respiratory: Positive for: CNT, Normal Breath Sounds Gastrointestinal/Abdominal: Positive for: Normal Exam, Soft, Other (small amount of serosanguinous fluid expressed from with mild pressure on abdomen. no signs of cellulitis. wound opening noted.) Back: Positive for: Normal Inspection Extremity: Positive for: Normal ROM Neurological/Psych: Positive for: Awake, Alert, Normal Tone - Laboratory Results Result Diagrams: 08/26/18 23:12 08/26/18 23:12 - ECG O2 Sat by Pulse Oximetry: 100 - Progress ED Course And Treament: Seen by surgical instrument repair specialist. [place] removed by DR. George. Lipase noted elevated 1700. LR 2 liters ordered wide open. d/w Dr. Bowens. Will obtain CT w/o contrast for evaluation for pseudocyst. lipase level d/w surgical instrument repair specialist. Disposition - Clinical Impression Clinical Impression: Pancreatitis, Wound drainage - Patient ED Disposition Is Patient to be Admitted: Yes - Disposition Referrals: Vignesh Solis MD [Staff Provider] - Rachid Rogel MD [Staff Provider] - Disposition Time: 23:28 Condition: FAIR Additional Instructions: POR FAVOR GRAY WINIFRED STEPHAN SHIRLEY SEMANA CON CIRUJANO Prescriptions: Cephalexin [Keflex] 500 mg PO QID #28 capsule Print Language: MOHAWK - Pt Status Changed To: Hospital Disposition Of: Inpatient - Admit Certification Admit to Inpatient:: After my assessment, the patient will require hospitalization for at least two midnights. This is because of the severity of symptoms shown, intensity of services needed, and/or the medical risk in this patient being treated as an outpatient.
[2018-08-26 23:23] LABS: BASO # 0.1 K/uL (0.0-0.2); BASO % 1.1 % (0.0-2.0); EOS # 0.2 K/uL (0.0-0.7); EOS % 2.3 % (0.0-4.0); HEMOGLOBIN 13.6 g/dL (12.0-18.0); LYMPH # 1.4 K/uL (1.0-4.3); MEAN CELL VOLUME 92.4 fl (80.0-94.0); MEAN CORPUSCULAR HGB CONC 34.7 g/dL (33.0-37.0); MEAN PLATELET VOLUME 7.7 fl (7.2-11.7); MONO # 0.9 K/uL (0.0-0.8); MONO % 13.3 % (0.0-10.0); NEUT # 4.3 K/uL (1.8-7.0); NEUT % 63.3 % (50.0-75.0); RBC 4.23 Mil/uL (4.40-5.90); WHITE BLOOD COUNT 6.8 K/uL (4.8-10.8)
[2018-08-26 23:27] LABS: URINE BILIRUBIN NEGATIVE (NEGATIVE); URINE BLOOD NEGATIVE (NEGATIVE); URINE CLARITY CLEAR (Clear); URINE COLOR YELLOW (YELLOW); URINE GLUCOSE (UA) NEG (NEGATIVE); URINE LEUKOCYTE ESTERASE NEG Leu/uL (Negative); URINE PROTEIN NEGATIVE (NEGATIVE); URINE UROBILINOGEN 0.2-1.0 mg/dL (0.2-1.0)
[2018-08-26 23:35] LABS: ALB/GLOB RATIO 1.2 (1.0-2.1); ALBUMIN 3.9 g/dL (3.5-5.0); ALT/SGPT 73 U/L (21-72); AST/SGOT 60 U/L (17-59); BLOOD UREA NITROGEN 3 mg/dl (9-20); CALCIUM 9.1 mg/dL (8.4-10.2); GFR NON-AFRICAN AMERICAN > 60; LIPASE 1719 U/L (23-300)
[2018-08-26] MEDS ORDERED: Lactated Ringer's 1,000 ML IV SCH (23:45)
--- NOTE | 2018-08-27 00:24 | CP.PCM.CON ---
History of Present Illness - History of Present Illness History of Present Illness: General Surgery - Dr. Solis 32yo M recently s/p ex-lap for SBO on 08/14, returned to ER today for abdominal pain and some drainage from the wound. Per the patient he began noticing some watery fluid draining from open areas of the wound about 1 day ago. He also notes some increased abdominal discomfort over the past 1 day located in the region of the incision. He denies any other symptoms including Fevers, Chills, Nausea, Vomiting, SOB, Chest pain. He states his bowel movements have been normal since the surgery and denies any constipation or diarrhea. Pt was seen in the ED. [place] removed from incision and small amount of serous drainage expressed. Lab workup found patient to have elevated lipase for which he was being admitted. Review of Systems - Review of Systems All systems: reviewed and no additional remarkable complaints except (as per HPI) Past Patient History - Past Medical History & Family History Past Medical History?: Yes - Past Social History Smoking Status: Never Smoked - ENDOCRINE/METABOLIC Hx Diabetes Mellitus Type 2: Yes - HEMATOLOGICAL/ONCOLOGICAL Hx Human Immunodeficiency Virus (HIV): No - MUSCULOSKELETAL/RHEUMATOLOGICAL Hx Falls: No - GASTROINTESTINAL Hx Gastritis: Yes - PSYCHIATRIC Hx Substance Use: No - SURGICAL HISTORY Hx Surgeries: No Other/Comment: ex/lap-colectomy 08/14/2018 - ANESTHESIA Hx Anesthesia: No Meds Home Medications: Home Medication List Medication Instructions Recorded Confirmed Type Cephalexin [Keflex] 500 mg PO QID #28 capsule 08/26/18 Rx Allergies/Adverse Reactions: Allergies Allergy/AdvReac Type Severity Reaction Status Date / Time No Known Allergies Allergy Verified 08/26/18 22:20 - Medications Medications: Current Medications Lactated Ringer's (Lactated Ringer's) 1,000 mls @ 1,000 mls/hr IV .Q1H DONNA Lactated Ringer's (Lactated Ringer's) 1,000 mls @ 1,000 mls/hr IV .Q1H DONNA Physical Exam - Constitutional Appears: No Acute Distress - Head Exam Head Exam: ATRAUMATIC, NORMAL INSPECTION, NORMOCEPHALIC - Eye Exam Eye Exam: Normal appearance - Respiratory Exam Respiratory Exam: NORMAL BREATHING PATTERN. absent: Respiratory Distress - Cardiovascular Exam Cardiovascular Exam: REGULAR RHYTHM - GI/Abdominal Exam GI & Abdominal Exam: Soft, Tenderness (mild andria-incisional tenderness and trace erythema, serous drainage, no purulence from wound). absent: Distended, Firm, Guarding, Hernia, Rebound, Rigid - Neurological Exam Neurological exam: Alert, Oriented x3 - Psychiatric Exam Psychiatric exam: Normal Affect, Normal Mood - Skin Skin Exam: Dry, Intact Results - Vital Signs Recent Vital Signs: Last Vital Signs Temp 99.2 F 08/26/18 22:20 Pulse 78 08/26/18 22:20 Resp 16 08/26/18 22:20 BP 143/81 08/26/18 22:20 Pulse Ox 100 08/26/18 23:49 - Labs Result Diagrams: 08/26/18 23:12 08/26/18 23:12 Labs: Laboratory Results - last 24 hr 08/26/18 08/26/18 08/26/18 23:12 23:12 23:14 WBC 6.8 RBC 4.23 L Hgb 13.6 Hct 39.1 MCV 92.4 MCH 32.0 H MCHC 34.7 RDW 13.0 Plt Count 271 MPV 7.7 Neut % (Auto) 63.3 Lymph % (Auto) 20.0 Lee % (Auto) 13.3 H Eos % (Auto) 2.3 Baso % (Auto) 1.1 Neut # (Auto) 4.3 Lymph # (Auto) 1.4 Lee # (Auto) 0.9 H Eos # (Auto) 0.2 Baso # (Auto) 0.1 Sodium 137 Potassium 3.9 Chloride 97 L Carbon Dioxide 30 Anion Gap 14 BUN 3 L Creatinine 0.4 L Est GFR ( Amer) > 60 Est GFR (Non-Af Amer) > 60 Random Glucose 163 H Calcium 9.1 Total Bilirubin 0.6 AST 60 H D ALT 73 H D Alkaline Phosphatase 143 H D Total Protein 7.2 Albumin 3.9 Globulin 3.3 Albumin/Globulin Ratio 1.2 Lipase 1719 H Urine Color Yellow Urine Clarity Clear Urine pH 8.0 Ur Specific [place] 1.010 Urine Protein Negative Urine Glucose (UA) Neg Urine Ketones Negative Urine Blood Negative Urine Nitrate Negative Urine Bilirubin Negative Urine Urobilinogen 0.2-1.0 Ur Leukocyte Esterase Neg Urine Microscopic WBC < 1 Assessment & Plan - Assessment and Plan (Free Text) Assessment: 32 yo M POD #12 s/p ex-lap for SBO, w/ serous drainage from wound and elevated lipase -Admitted to medical service -Continue daily dry gauze dressings as needed -No evidence of wound infection -Continue care as per medical team -Further reccs as per Dr. Will George PGY4
[2018-08-27] MEDS: Lactated Ringer's 1,000 ML IV SCH ×3 (00:32→22:00)
--- NOTE | 2018-08-27 00:57 | CP.PCM.HP ---
History of Present Illness - History of Present Illness History of Present Illness: 32 yo M with PMH of DM and HTN discharged on 08/22/18 s/p ex-lap for SBO on 08/14, presented today c/o diffuse abdominal pain and some drainage from the wound onset 1 day ago. He began noticing some watery fluid draining from periumbilical wound and also wound started opening. He endorses f/u appt with Surgery on September 06. Patient also reports he is tolerating PO w/o difficulty. Otherwise he denies fevers, Chills, Nausea, Vomiting, SOB, Chest pain, no urinary sx and states normal BM since surgery. PMD: [facility] ( appt on August 28) PMH: DM type II, HTN PSH: denies FMH: non contributory Meds: reviewed, as bellw NKDA, no other allergies SH: etoh socially on weekends, denies tobacco or ilicit drugs use Present on Admission - Present on Admission Any Indicators Present on Admission: No Review of Systems - Review of Systems All systems: reviewed and no additional remarkable complaints except (HPI) Past Patient History - Past Medical History & Family History Past Medical History?: Yes - Past Social History Smoking Status: Never Smoked - ENDOCRINE/METABOLIC Hx Diabetes Mellitus Type 2: Yes - HEMATOLOGICAL/ONCOLOGICAL Hx Human Immunodeficiency Virus (HIV): No - MUSCULOSKELETAL/RHEUMATOLOGICAL Hx Falls: No - GASTROINTESTINAL Hx Gastritis: Yes - PSYCHIATRIC Hx Substance Use: No - SURGICAL HISTORY Hx Surgeries: No Other/Comment: ex/lap-colectomy 08/14/2018 - ANESTHESIA Hx Anesthesia: No Meds Allergies/Adverse Reactions: Allergies Allergy/AdvReac Type Severity Reaction Status Date / Time No Known Allergies Allergy Verified 08/26/18 22:20 Physical Exam - Constitutional Appears: Non-toxic, No Acute Distress - Head Exam Head Exam: NORMAL INSPECTION - Eye Exam Eye Exam: EOMI, PERRL - ENT Exam ENT Exam: Mucous Membranes Moist - Neck Exam Neck exam: Positive for: Full Rom. Negative for: Lymphadenopathy, Tenderness, Thyromegaly - Respiratory Exam Respiratory Exam: Clear to Auscultation Bilateral, NORMAL BREATHING PATTERN. absent: Chest Wall Tenderness, Rales, Wheezes - Cardiovascular Exam Cardiovascular Exam: REGULAR RHYTHM, +S1, +S2. absent: Tachycardia - GI/Abdominal Exam GI & Abdominal Exam: Normal Bowel Sounds, Soft, Tenderness. absent: Distended Additional comments: Milld andria-incisional and R sided tenderness, trace erythema noted andria incisional, gee removed from periumbilical incision, serous drainage noted, no pus appreciated. - Extremities Exam Extremities exam: Negative for: calf tenderness, pedal edema - Psychiatric Exam Psychiatric exam: Normal Mood - Skin Skin Exam: Dry, Normal Color, Warm Results - Vital Signs Recent Vital Signs: Last Vital Signs Temp 99.2 F 08/26/18 22:20 Pulse 78 08/26/18 22:20 Resp 16 08/26/18 22:20 BP 143/81 08/26/18 22:20 Pulse Ox 100 08/26/18 23:49 - Labs Result Diagrams: 08/26/18 23:12 08/26/18 23:12 Labs: Laboratory Results - last 24 hr 08/26/18 08/26/18 08/26/18 23:12 23:12 23:14 WBC 6.8 RBC 4.23 L Hgb 13.6 Hct 39.1 MCV 92.4 MCH 32.0 H MCHC 34.7 RDW 13.0 Plt Count 271 MPV 7.7 Neut % (Auto) 63.3 Lymph % (Auto) 20.0 Brooks % (Auto) 13.3 H Eos % (Auto) 2.3 Baso % (Auto) 1.1 Neut # (Auto) 4.3 Lymph # (Auto) 1.4 Brooks # (Auto) 0.9 H Eos # (Auto) 0.2 Baso # (Auto) 0.1 Sodium 137 Potassium 3.9 Chloride 97 L Carbon Dioxide 30 Anion Gap 14 BUN 3 L Creatinine 0.4 L Est GFR ( Amer) > 60 Est GFR (Non-Af Amer) > 60 Random Glucose 163 H Calcium 9.1 Total Bilirubin 0.6 AST 60 H D ALT 73 H D Alkaline Phosphatase 143 H D Total Protein 7.2 Albumin 3.9 Globulin 3.3 Albumin/Globulin Ratio 1.2 Lipase 1719 H Urine Color Yellow Urine Clarity Clear Urine pH 8.0 Ur Specific [place] 1.010 Urine Protein Negative Urine Glucose (UA) Neg Urine Ketones Negative Urine Blood Negative Urine Nitrate Negative Urine Bilirubin Negative Urine Urobilinogen 0.2-1.0 Ur Leukocyte Esterase Neg Urine Microscopic WBC < 1 Assessment & Plan - Assessment and Plan (Free Text) Assessment: 32 yo with HTN and DM type II, s/p ex-lap/colectomy repair on 08/14/2018 admitted for partial SBO and pancreatitis. Plan: Partial SBO - admit to med/surg - VSS - s/p ex-lap/colectomy repair on 08/14/2018 - CT ABD/PELVIS: RECURRENT MODERATE PARTIAL SMALL BOWEL OBSTRUCTION. TRANSITION ZONE THE RIGHT LOWER QUADRANT. NO PERFORATION OR PNEUMATOSIS INTESTINALIS. BILATERAL BASILAR ATELECTASIS. - afebrile, wbc wnl - NPO - IVF - Surgery consulted, recs appreciated - pain management - labs in am Postop Pancreatitis? Transaminitis - lipase 1719, AST/ALT: 60/73 - BISAP score 0 - keep NPO - IVF - pain management - lipase and cmp in am. s/p ex-lap/colectomy repair - Surgery on 08/14/2018 - General surgery on board, f/u recommendations Wound dehiscence, periumbilical - gee removed per surgery in ED - no signs of wound infection - started on Ancef per Surgery recs - daily wound care DM type II - hold PO meds - low coverage sliding scale - accuchecks - hypoglycemia protocol HTN - chronic, controlled - continue home meds DVT ppx - lovenox sc daily GI ppx - protonix IV daily Case seen and examined with Dr Casas.
[2018-08-27] MEDS ORDERED: Glucagon Recombinant 1 mg Inj IM PRN (01:01)
[2018-08-27] MEDS ORDERED: Dextrose 50% SYRINGE Inj (50 ml) IV PRN (01:01)
[2018-08-27 02:08] VITALS: BMI 25.4
[2018-08-27] MEDS ORDERED: Lactated Ringer's 1,000 ML IV SCH (03:46)
[2018-08-27 06:34] LABS: BASO # 0.1 K/uL (0.0-0.2); BASO % 0.8 % (0.0-2.0); EOS # 0.2 K/uL (0.0-0.7); EOS % 2.4 % (0.0-4.0); HEMOGLOBIN 13.2 g/dL (12.0-18.0); LYMPH # 1.6 K/uL (1.0-4.3); LYMPH % 20.8 % (20.0-40.0); MEAN CELL VOLUME 93.9 fl (80.0-94.0); MEAN CORPUSCULAR HEMOGLOBIN 31.9 pg (27.0-31.0); MEAN PLATELET VOLUME 8.1 fl (7.2-11.7); NEUT # 4.8 K/uL (1.8-7.0); NRBC % 0.1 % (0.0-0.0); RBC 4.15 Mil/uL (4.40-5.90); RED CELL DISTRIBUTION WIDTH 12.9 % (11.5-14.5); WHITE BLOOD COUNT 7.7 K/uL (4.8-10.8)
[2018-08-27 06:40] LABS: ALB/GLOB RATIO 1.1 (1.0-2.1); ALBUMIN 3.3 g/dL (3.5-5.0); ALT/SGPT 63 U/L (21-72); AST/SGOT 63 U/L (17-59); BLOOD UREA NITROGEN 4 mg/dl (9-20); CALCIUM 9.1 mg/dL (8.4-10.2); GFR NON-AFRICAN AMERICAN > 60; LIPASE 1593 U/L (23-300)
--- NOTE | 2018-08-27 07:58 | CP.PCM.PN ---
Objective - Vital Signs/Intake and Output Vital Signs (last 24 hours): Temp Pulse Resp BP Pulse Ox 98.2 F 69 20 147/89 99 08/27/18 02:09 08/27/18 02:09 08/27/18 02:09 08/27/18 02:09 08/27/18 02:09 - Medications Medications: Current Medications Acetaminophen (Tylenol 325 Mg Supp) 325 mg [place] Q6 PRN PRN Reason: Pain, Mild (1-3) Dextrose (Dextrose 50% Inj) 0 ml IV STAT PRN; Protocol PRN Reason: Hypoglycemia Protocol Dextrose (Glutose 15) 0 gm PO ONCE PRN; Protocol PRN Reason: Hypoglycemia Protocol Enoxaparin Sodium (Lovenox) 40 mg SC DAILY DONNA; Protocol Glucagon (Glucagen Diagnostic Kit) 0 mg IM STAT PRN; Protocol PRN Reason: Hypoglycemia Protocol Lactated Ringer's (Lactated Ringer's) 1,000 mls @ 1,000 mls/hr IV .Q1H DONNA Last Admin: 08/27/18 00:32 Dose: 1,000 mls/hr Lactated Ringer's (Lactated Ringer's) 1,000 mls @ 1,000 mls/hr IV .Q1H DONNA Last Admin: 08/27/18 02:05 Dose: 1,000 mls/hr Cefazolin Sodium 1 gm/ Sodium (Chloride) 100 mls @ 100 mls/hr IVPB Q8 DONNA; Protocol Lactated Ringer's (Lactated Ringer's) 1,000 mls @ 125 mls/hr IV .Q8H DONNA Last Admin: 08/27/18 03:51 Dose: 125 mls/hr Insulin Human Lispro (Humalog) 0 units SC ACHS DONNA; Protocol Ketorolac Tromethamine (Toradol) 15 mg IVP Q6 PRN PRN Reason: Pain, moderate (4-7) Last Admin: 08/27/18 02:35 Dose: 15 mg Losartan Potassium (Cozaar) 50 mg PO DAILY [facility] Morphine Sulfate (Morphine) 2 mg IVP Q4 PRN PRN Reason: Pain, severe (8-10) Ondansetron HCl (Zofran Inj) 4 mg IVP Q4 PRN PRN Reason: Nausea/Vomiting Pantoprazole Sodium (Protonix Inj) 40 mg IVP DAILY DONNA - Labs Labs: 08/27/18 05:30 08/27/18 05:30
[2018-08-27] MEDS: ceFAZolin 1 GM in Sodium Chloride 0.9% 100 ML IVPB SCH ×2 (08:34→16:18)
[2018-08-27] MEDS: Insulin Lispro (humaLOG) 100 Units/ml Inj SC SCH ×4 (08:36→22:00)
[2018-08-27 08:37] LABS: HDL CHOLESTEROL 21 MG/DL (30-70)
[2018-08-27] MEDS: Enoxaparin 40 mg Syringe SC SCH (08:37)
[2018-08-27 08:48] LABS: LDL CHOLESTEROL 60 mg/dL (0-129)
--- NOTE | 2018-08-27 11:05 | US ---
Date of service: 08/27/2018 HISTORY: pancreatitis COMPARISON: None. TECHNIQUE: Sonographic evaluation of the right upper quadrant of the abdomen. FINDINGS: LIVER: Measures 16.1 cm in length. Normal echogenicity of the liver parenchyma. No mass. No intrahepatic bile duct dilatation. GALLBLADDER: Unremarkable. No gallstones. COMMON BILE DUCT: Measures 4 mm. No stones. No dilatation. PANCREAS: Unremarkable as visualized. No mass. No ductal dilatation. RIGHT KIDNEY: Measures 13.0 cm in length. Normal echogenicity. No calculus, mass, or hydronephrosis. AORTA: No aneurysmal dilatation. IVC: Unremarkable. OTHER FINDINGS: Trace fluid in Resendiz's pouch. No generalized ascites appreciated. IMPRESSION: Trace fluid in Resendiz's pouch. Otherwise unremarkable examination
--- NOTE | 2018-08-27 11:44 | CT ---
Date of service: 08/27/2018 PROCEDURE: CT Abdomen and Pelvis without intravenous contrast HISTORY: EVALUATE FOR PSEUDOCYST. ELEVATED LIPASE 1700. COMPARISON: 08/14/2018. CT abdomen and pelvis. 08/16/2018 small bowel series. Summary of findings on the comparison examination: Findings most consistent with partial small bowel obstruction. August 27, 2018. Right upper quadrant ultrasound. TECHNIQUE: Unenhanced. Neither IV nor oral contrast administered Radiation dose: Total exam DLP = 309.07 mGy-cm. This CT exam was performed using one or more of the following dose reduction techniques: Automated exposure control, adjustment of the mA and/or kV according to patient size, and/or use of iterative reconstruction technique. FINDINGS: LOWER THORAX: Unremarkable. LIVER: Unremarkable. No gross lesion or ductal dilatation. GALLBLADDER AND BILE DUCTS: Unremarkable. PANCREAS: Unremarkable. No gross lesion or ductal dilatation. SPLEEN: Unremarkable. ADRENALS: Unremarkable. No mass. KIDNEYS AND URETERS: Unremarkable. No hydronephrosis. No solid mass. VASCULATURE: Unremarkable. No aortic aneurysm. No atherosclerotic calcification or mural plaque present. BOWEL: Dilated small bowel similar pattern/distribution to that seen previously suggests earlier incomplete small bowel obstruction. Distal small bowel is decompressed. Point of obstruction resides right lower quadrant. APPENDIX: A normal appendix is visualized in it's entirety. PERITONEUM: Unremarkable. No free fluid. No free air. LYMPH NODES: Unremarkable. No enlarged lymph nodes. BLADDER: Unremarkable. REPRODUCTIVE: Unremarkable. BONES: No acute fracture. OTHER FINDINGS: Periumbilical inflammatory changes highly suggestive of prior surgery. These were not seen previously. Please correlate with clinical history. IMPRESSION: Persistent distal small bowel obstruction. Similar findings identified on the prior study August 14, 2018. The overall appearance suggests early/incomplete small bowel obstruction. No CT evidence of acute pancreatitis. Additional benign and/or incidental findings described above. Concordant results (preliminary interpretation) provided by [facility]. Procedure Completed: 00:03. Preliminary Report: Interpreted and electronically signed: 01:06. Final Interpretation: 11:40. August 27, 2018.
[2018-08-28] MEDS: ceFAZolin 1 GM in Sodium Chloride 0.9% 100 ML IVPB SCH ×2 (00:15→09:07)
[2018-08-28] MEDS: Lactated Ringer's 1,000 ML IV SCH ×2 (05:22→12:24)
[2018-08-28 06:53] LABS: BASO # 0.1 K/uL (0.0-0.2); BASO % 0.8 % (0.0-2.0); EOS # 0.2 K/uL (0.0-0.7); EOS % 2.4 % (0.0-4.0); LYMPH # 1.4 K/uL (1.0-4.3); LYMPH % 18.8 % (20.0-40.0); MEAN CELL VOLUME 94.3 fl (80.0-94.0); MEAN CORPUSCULAR HEMOGLOBIN 31.6 pg (27.0-31.0); MEAN CORPUSCULAR HGB CONC 33.5 g/dL (33.0-37.0); MONO # 0.7 K/uL (0.0-0.8); MONO % 8.7 % (0.0-10.0); NEUT # 5.3 K/uL (1.8-7.0); NEUT % 69.3 % (50.0-75.0); NRBC % 0.1 % (0.0-0.0); RBC 4.11 Mil/uL (4.40-5.90); RED CELL DISTRIBUTION WIDTH 12.9 % (11.5-14.5); WHITE BLOOD COUNT 7.6 K/uL (4.8-10.8)
[2018-08-28] MEDS: Insulin Lispro (humaLOG) 100 Units/ml Inj SC SCH ×2 (06:57→12:26)
[2018-08-28 07:14] LABS: ALB/GLOB RATIO 1.1 (1.0-2.1); ALBUMIN 3.4 g/dL (3.5-5.0); ALT/SGPT 60 U/L (21-72); AST/SGOT 78 U/L (17-59); BLOOD UREA NITROGEN 6 mg/dl (9-20); CALCIUM 9.4 mg/dL (8.4-10.2); GFR NON-AFRICAN AMERICAN > 60; LIPASE 849 U/L (23-300)
[2018-08-28 09:05] VITALS: BP 125/77; PULSE 61; RESP 20; TEMP 97.9; O2SAT 98
[2018-08-28] MEDS: Enoxaparin 40 mg Syringe SC SCH (09:06)
--- NOTE | 2018-08-28 11:06 | CP.PCM.PN ---
Subjective - Date & Time of Evaluation Date of Evaluation: 08/28/18 Time of Evaluation: 11:03 - Subjective Subjective: seen at bedside, no overnight events. Pt afebrile, hemodynamically stable. Pt reports improved abdominal pain, no nausea or vomiting. Pt is tolerating clears. +flatus/BM. Lipase down to 849 from 1600 gen: awake, alert, NAD heent: nc/at, eomi, perrla abd: soft, NT, ND, midline incision with 1cm x1cm openining with some drainage, non foul smelling. -advance diet as tolerated -cont local wound care -BS control Objective - Vital Signs/Intake and Output Vital Signs (last 24 hours): Temp Pulse Resp BP Pulse Ox 97.9 F 61 20 125/77 98 08/28/18 09:04 08/28/18 09:07 08/28/18 09:04 08/28/18 09:07 08/28/18 09:04 - Medications Medications: Current Medications Acetaminophen (Tylenol 325 Mg Supp) [address] Q6 PRN PRN Reason: Pain, Mild (1-3) Dextrose (Dextrose 50% Inj) 0 ml IV STAT PRN; Protocol PRN Reason: Hypoglycemia Protocol Dextrose (Glutose 15) 0 gm PO ONCE PRN; Protocol PRN Reason: Hypoglycemia Protocol Enoxaparin Sodium (Lovenox) 40 mg SC DAILY DONNA; Protocol Last Admin: 08/28/18 09:06 Dose: 40 mg Glucagon (Glucagen Diagnostic Kit) 0 mg IM STAT PRN; Protocol PRN Reason: Hypoglycemia Protocol Cefazolin Sodium 1 gm/ Sodium (Chloride) 100 mls @ 100 mls/hr IVPB Q8 DONNA; Protocol Last Admin: 08/28/18 09:07 Dose: 100 mls/hr Lactated Ringer's (Lactated Ringer's) 1,000 mls @ 150 mls/hr IV .Q6H40M DONNA Last Admin: 08/28/18 05:22 Dose: 150 mls/hr Insulin Human Lispro (Humalog) 0 units SC ACHS DONNA; Protocol Last Admin: 08/28/18 06:57 Dose: Not Given Ketorolac Tromethamine (Toradol) 15 mg IVP Q6 PRN PRN Reason: Pain, moderate (4-7) Last Admin: 08/28/18 09:06 Dose: 15 mg Losartan Potassium (Cozaar) 50 mg PO DAILY [facility] Last Admin: 08/28/18 09:07 Dose: 50 mg Morphine Sulfate (Morphine) 2 mg IVP Q4 PRN PRN Reason: Pain, severe (8-10) Ondansetron HCl (Zofran Inj) 4 mg IVP Q4 PRN PRN Reason: Nausea/Vomiting Pantoprazole Sodium (Protonix Inj) 40 mg IVP DAILY [facility] Last Admin: 08/28/18 09:07 Dose: 40 mg - Labs Labs: 08/28/18 05:55 08/28/18 05:55
--- NOTE | 2018-08-28 14:46 | CP.PCM.DIS ---
Provider - Provider Date of Admission: 08/26/18 23:50 Attending physician: Mindy Casas MD Consults: 08/26/18 23:47 Surgical [General Surgery Consult] Stat Comment: postsurgical pancreatitis/wound evaluation Consulting Provider: Vignesh Solis Consulting Physician: Vignesh Solis Reason for Consult: postsurgical pancreatitis/wound evaluation. Time Spent in preparation of Discharge (in minutes): 20 Diagnosis - Discharge Diagnosis (1) Wound drainage Status: Acute Hospital Course - Lab Results Lab Results: Micro Results 08/27/18 10:50 Abscess - Abdominal Gram Stain - Final 08/27/18 10:50 Abscess - Abdominal Wound Culture - Preliminary Gram Negative Adam Gram Negative Adam#2 Gram Positive Cocci 08/26/18 23:14 Urine Random Urine Culture - Final No Growth (<1,000 CFU/ML) Most Recent Lab Values WBC 7.6 K/uL (4.8-10.8) 08/28/18 05:55 RBC 4.11 Mil/uL (4.40-5.90) L 08/28/18 05:55 Hgb 13.0 g/dL (12.0-18.0) 08/28/18 05:55 Hct 38.8 % (35.0-51.0) 08/28/18 05:55 MCV 94.3 fl (80.0-94.0) H 08/28/18 05:55 MCH 31.6 pg (27.0-31.0) H 08/28/18 05:55 MCHC 33.5 g/dL (33.0-37.0) 08/28/18 05:55 RDW 12.9 % (11.5-14.5) 08/28/18 05:55 Plt Count 260 K/uL (130-400) 08/28/18 05:55 MPV 8.0 fl (7.2-11.7) 08/28/18 05:55 Neut % (Auto) 69.3 % (50.0-75.0) 08/28/18 05:55 Lymph % (Auto) 18.8 % (20.0-40.0) L 08/28/18 05:55 [place] % (Auto) 8.7 % (0.0-10.0) 08/28/18 05:55 Eos % (Auto) 2.4 % (0.0-4.0) 08/28/18 05:55 Baso % (Auto) 0.8 % (0.0-2.0) 08/28/18 05:55 Neut # (Auto) 5.3 K/uL (1.8-7.0) 08/28/18 05:55 Lymph # (Auto) 1.4 K/uL (1.0-4.3) 08/28/18 05:55 Rowan # (Auto) 0.7 K/uL (0.0-0.8) 08/28/18 05:55 Eos # (Auto) 0.2 K/uL (0.0-0.7) 08/28/18 05:55 Baso # (Auto) 0.1 K/uL (0.0-0.2) 08/28/18 05:55 Sodium 140 mmol/l (132-148) 08/28/18 05:55 Potassium 3.6 MMOL/L (3.6-5.0) 08/28/18 05:55 Chloride 100 mmol/L (98-107) 08/28/18 05:55 Carbon Dioxide 29 mmol/L (22-30) 08/28/18 05:55 Anion Gap 15 (10-20) 08/28/18 05:55 BUN 6 mg/dl (9-20) L 08/28/18 05:55 Creatinine 0.6 mg/dl (0.8-1.5) L 08/28/18 05:55 Est GFR ( Amer) > 60 08/28/18 05:55 Est GFR (Non-Af Amer) > 60 08/28/18 05:55 POC Glucose (mg/dL) 230 mg/dL (65-110) H 08/28/18 11:00 Random Glucose 134 mg/dL (75-110) H 08/28/18 05:55 Calcium 9.4 mg/dL (8.4-10.2) 08/28/18 05:55 Total Bilirubin 0.9 mg/dl (0.2-1.3) 08/28/18 05:55 AST 78 U/L (17-59) H D 08/28/18 05:55 ALT 60 U/L (21-72) 08/28/18 05:55 Alkaline Phosphatase 113 U/L (38-126) 08/28/18 05:55 Total Protein 6.6 G/DL (6.3-8.2) 08/28/18 05:55 Albumin 3.4 g/dL (3.5-5.0) L 08/28/18 05:55 Globulin 3.2 gm/dL (2.2-3.9) 08/28/18 05:55 Albumin/Globulin Ratio 1.1 (1.0-2.1) 08/28/18 05:55 Triglycerides 150 mg/DL (0-149) H 08/27/18 08:25 Cholesterol 95 mg/dL (0-199) 08/27/18 08:25 LDL Cholesterol Direct 60 mg/dL (0-129) 08/27/18 08:25 HDL Cholesterol 21 MG/DL (30-70) L 08/27/18 08:25 Lipase 849 U/L (23-300) H 08/28/18 05:55 Urine Color Yellow (YELLOW) 08/26/18 23:14 Urine Clarity Clear (Clear) 08/26/18 23:14 Urine pH 8.0 (5.0-8.0) 08/26/18 23:14 Ur Specific [place] 1.010 (1.003-1.030) 08/26/18 23:14 Urine Protein Negative mg/dL (NEGATIVE) 08/26/18 23:14 Urine Glucose (UA) Neg mg/dL (NEGATIVE) 08/26/18 23:14 Urine Ketones Negative mg/dL (NEGATIVE) 08/26/18 23:14 Urine Blood Negative (NEGATIVE) 08/26/18 23:14 Urine Nitrate Negative (NEGATIVE) 08/26/18 23:14 Urine Bilirubin Negative (NEGATIVE) 08/26/18 23:14 Urine Urobilinogen 0.2-1.0 mg/dL (0.2-1.0) 08/26/18 23:14 Ur Leukocyte Esterase Neg [place]/uL (Negative) 08/26/18 23:14 Urine Microscopic WBC < 1 /hpf (0-5) 08/26/18 23:14 - Hospital Course Hospital Course: 32 yo M with PMH of DM and HTN discharged on 08/22/18 s/p ex-lap for SBO on 08/14, presented to ED with c/o diffuse abdominal pain and some drainage from the wound onset 1 day prior to presentation. Surgery saw patient and gee removed from incision with small amount of serous drainage expressed. Lab workup found patient to have elevated lipase for which he was being admitted. Lipase trended down overnight. Tolerating normal diet, WBC wnl, and remained afebrile. Pt medically cleared for discharge to home with PO augmentin x 10days and education on local wound care. Follow-up up Dr Solis and Dr Almanzar within 1 week. Discharge Exam - Head Exam Head Exam: NORMAL INSPECTION - Eye Exam Eye Exam: Normal appearance - ENT Exam ENT Exam: Mucous Membranes Moist - Respiratory Exam Respiratory Exam: NORMAL BREATHING PATTERN. absent: Respiratory Distress - Cardiovascular Exam Cardiovascular Exam: REGULAR RHYTHM, +S1, +S2 - GI/Abdominal Exam Additional comments: Milld andria-incisional and R sided tenderness, trace erythema noted andria incisional, gee removed from periumbilical incision, serous drainage noted, no pus appreciated. - Neurological Exam Neurological exam: Alert, Normal Gait, Oriented x3 - Psychiatric Exam Psychiatric exam: Normal Affect, Normal Mood - Skin Skin Exam: Dry, Intact, Normal Color, Warm Discharge Plan - Discharge Medications Prescriptions: Amoxicillin/Clavulanate [Augmentin 250 MG-125 MG] 1 tab PO Q12 10 Days #20 tab - Follow Up Plan Condition: FAIR Disposition: HOME/ ROUTINE Instructions: Pancreatitis (DC) Additional Instructions: POR FAVOR GRAY WINIFRED STEPHAN SHIRLEY SEMANA CON CIRUJANO Referrals: Vignesh Solis MD [Staff Provider] - Rachid Rogel MD [Staff Provider] -
== END 2018-08-28 15:39 | disposition home or self-care (01) | DRG 252 ==
LOC: H.ER 21:39 → H.ERHOLD 23:50 → H.MEDSURG1 08-27 01:53
PROVIDERS: ADMIT Internal Medicine; ATTEND Internal Medicine
DX: K91.89 Other postprocedural complications and disorders of digestive system (principal); K56.600 Partial intestinal obstruction, unspecified as to cause; T81.31XA Disruption of external operation (surgical) wound, not elsewhere classified, initial encounter; K85.90 Acute pancreatitis without necrosis or infection, unspecified; E11.9 Type 2 diabetes mellitus without complications; I10 Essential (primary) hypertension; Z79.84 Long term (current) use of oral hypoglycemic drugs; Y83.6 Removal of other organ (partial) (total) as the cause of abnormal reaction of the patient, or of later complication, without mention of misadventure at the time of the procedure; K29.70 Gastritis, unspecified, without bleeding